=== PATIENT | female | born 1990 | race Caucasian/White ===

== ENCOUNTER → 2019-10-01 | Outpatient (CLI) | payer OTHER, SELFPAY ==
[2019-10-01 17:53] LABS: Vitamin D,25 Hydroxy 15.4 ng/mL
== END | disposition home or self-care (01) ==
PROVIDERS: Referring Provider Obstetrics & Gynecology; Visit Provider Obstetrics & Gynecology
DX: E55.9 Vitamin D deficiency, unspecified (principal)
CPT/HCPCS: 82306

== ENCOUNTER → 2019-10-15 10:27 | Outpatient (CLI) | payer OTHER, SELFPAY ==
[2014-08-24 18:11] VITALS: BMI 41.0
[2019-10-15 10:42] LABS: Hematocrit 39.1 % (37-47); Hemoglobin 12.7 g/dL (12.0-15.0); Mean Corp Hgb Conc 32.5 g/dL (32-36); Mean Corpuscular Volume 92.4 fL (81-99); Mean Platelet Vol. 11.3 fl (6.2-12.0); Platelet Count 274 K/mm3 (150-450); RBC Distribution Width CV 12.3 % (11.6-14.6); Red Blood Count 4.23 M/mm3 (4.2-5.4); White Blood Count 6.6 K/mm3 (4.4-11.0)
[2019-10-15 10:58] LABS: Anion Gap 6 (5-15); BUN 7 mg/dL (7-18); BUN/Creat Ratio 8.2 RATIO (10-20); Calcium,Total 8.7 mg/dL (8.5-10.1); Chloride 111 mmol/L (98-107); Creatinine, Serum 0.85 mg/dL (0.55-1.02); EST Glomerular Filtration Rate 84 mL/min (>60); Est Glom Filt Rate - Afr Amer 101 mL/min (>60); Glucose 97 mg/dL (74-106); Potassium 3.6 mmol/L (3.5-5.1); Sodium Level 142 mmol/L (136-145)
== END ==
PROVIDERS: Visit Provider Obstetrics & Gynecology
DX: N92.0 Excessive and frequent menstruation with regular cycle (principal)
CPT/HCPCS: 36415; 80048; 85027; 86850; 86900; 86901

== ENCOUNTER 2019-10-15 11:10 | Emergency (ER) | payer OTHER, SELFPAY ==
[2019-10-15 11:13] VITALS: BP 146/82; PULSE 99; RESP 17; TEMP 36.1; O2SAT 100; BMI 39.5
--- NOTE | 2019-10-15 11:31 | EKG12_ITS ---
Test Reason : VAGINAL BLEED Blood Pressure : / mmHG Vent. Rate : 085 BPM Atrial Rate : 085 BPM P-R Int : 178 ms QRS Dur : 088 ms QT Int : 372 ms P-R-T Axes : 040 041 022 degrees QTc Int : 442 ms Normal sinus rhythm Normal ECG Confirmed by MANINDER MONSALVE, EMILY ([id number]), production editor NILA MANUEL ([id number]) on 10/17/2019 11:10:51 AM Referred By: NIMISHA Confirmed By:EMILY DICKENS MD
--- NOTE | 2019-10-15 11:36 | ED.VIS.GEN ---
History of Present Illness Chief Complaint: Vag Bleeding Informant: Patient Onset: Weeks Context: Gradual Onset Narrative: Patient presents from Dr. Ana Mack office. She had an IUD removed nearly 2 weeks ago. The day after her procedure she started heavy vaginal bleeding. Dr. Ana Mack started her on Aygestin yesterday to help control her bleeding. She was seen in the office today secondary to generalized weakness, fatigue, intermittent shortness of breath. CBC and chemistry studies were unremarkable and the patient was sent to the ER for further evaluation. Patient does report some chest pain last night but states she thinks it was associated with a panic attack. She does get intermittently short of breath and states her breathing is easier when she lays down flat. She denies pain currently. She reports her appetite has been normal. Past Medical History - Allergies and Home Meds Allergies/Adverse Reactions: Allergies IMMODIUM Allergy (Severe, Uncoded 10/15/19 11:12) Anaphylaxis Primary Care Physician: Zachary Bal MD [Primary Care Provider] - Doctors: Dr. Ana Mack Lives: With Family Smoking Status: Former smoker Review of Systems General: Denies: Chills, Fever Eyes: Denies: Visual changes - bilaterally ENT: Denies: Bilateral ear pain Cardiovascular: Reports: Chest pain Respiratory: Reports: Dyspnea Gastrointestinal: Denies: Abdominal pain, Nausea, Vomiting, Diarrhea Genitourinary: Denies: Dysuria Musculoskeletal: Denies: Swelling, Extremity Pain Skin: Denies: Rash Neurological: Reports: Weakness Hematologic: Denies: Easy bruising, Easy bleeding Allergy: Denies: Uticaria Physical Exam Vital Signs/Narrative: Vital Signs Temp Pulse Resp BP Pulse Ox 10/15/19 11:13 96.9 F L 99 17 146/82 H 100 Inital Vital Signs reviewed: Yes General: Well nourished, Well developed Head: Normocephalic ENT: Moist mucous membranes Neck: Supple Cardiovascular: Regular rate, Regular rhythm Respiratory: No distress, CTA bilaterally Abdomen: Soft, Nontender Extremities: Nontender Skin: Normal color Neurological: Alert, Oriented x3 Psychological: Normal affect Diagnostic/Tx/Re-eval Impressions Chest X-Ray 10/15/19 12:05 IMPRESSION: Normal x-ray examination of the chest. Electronically Signed: Michael Sparks, at 12:25 EDT , Service support , Chest CTA 10/15/19 13:10 IMPRESSION: 6.7 mm noncalcified nodule in the right lung apex as well as a 5.9 mm noncalcified nodule in the medial aspect of the right upper lobe. Mildly enlarged right hilar lymph node. CT follow-up in 3 months is recommended. No evidence of the pulmonary embolism. Electronically Signed: Michael Sparks, at 13:54 EDT , Service support , 10/15/19 12:05 Chest 1 View (Portable) [RAD] Stat 10/15/19 13:10 CTA Chest W/WO Contrast [CT] Stat Laboratory Results 10/15/19 10/15/19 10/15/19 11:50 11:50 11:50 D-Dimer Quant (PE/DVT) 0.62 H* Troponin I < 0.015 TSH 0.88 Urine Color Yellow Urine Clarity Sl. Cloudy Urine pH 8.0 Ur Specific [place] 1.010 Urine Protein Negative Urine Glucose (UA) Normal Urine Ketones Negative Urine Occult Blood 25 H Urine Nitrite Negative Urine Bilirubin Negative Urine Urobilinogen Normal Ur Leukocyte Esterase Negative Urine RBC 0-5 SEEN Urine WBC 0 SEEN Ur Squamous Epith Cells 0 SEEN Urine Bacteria 0 SEEN Urine Mucus 0 SEEN - EKG Initial EKG Interpretation: Sinus Rhythm - Sinus 85 with no acute ischemia. - Medical Decision Making Patient was given IV fluids here. CBC and chemistry studies have been obtained at her [employer]MENT [employer]'s office. Troponin, d-dimer, TSH and urinalysis were added here. Due to elevation in d-dimer CTA of the chest was obtained. This reveals no evidence of PE but does reveal 2 lung nodules that will need follow-up. This was discussed with patient and family at bedside. ED Disposition - Plan for ED Patient: Disposition: Home or Assisted Living Diagnosis: Fatigue Instructions: ED Weakness [facility] Referrals: Zachary Bal MD [Primary Care Provider] - Chel Dias MD [STAFF PHYSICIAN] -
[2019-10-15 11:51] VITALS: BP 125/85; PULSE 87; RESP 16
[2019-10-15] MEDS: 0.9% Normal Saline 1,000 ML 1000 ML IV (11:55)
--- NOTE | 2019-10-15 12:05 | RAD_ITS ---
STUDY: X-RAY CHEST REASON FOR EXAM: Female, 29 years old. SENT UP BY DR. CANO -- IUD REMOVED 10 DAYS AGO. PT REPORTS CONTINUED BLEEDING, SOB X2 DAYS, INCREASED FATIGUE AND SLOW TO RESPOND TECHNIQUE: Single AP portable view of the chest. COMPARISON: None. FINDINGS: EKG electrodes are seen. The lungs are clear and expanded. There is no demonstrated pleural abnormality. Normal size heart. Normal mediastinum and ramon. Normal visualized pulmonary arteries. Normal visualized aortic arch and descending thoracic aorta. Normal visualized thoracic spine. Normal visualized ribs, clavicles, and shoulders. There is no demonstrated abnormality of the visualized soft tissue structures of the upper abdomen. RAD/Chest 1 View (Portable) IMPRESSION: Normal x-ray examination of the chest. Electronically Signed: Michael Sparks, at 12:25 EDT , Service support ,
[2019-10-15 12:07] LABS: Bacteria 0 SEEN /hpf (None Seen); Mucous, Urine 0 SEEN /hpf (<or=2+); Squamous Epithelial Cells - UA 0 SEEN /hpf (5-10); White Blood Cells 0 SEEN /hpf (0-5)
[2019-10-15 12:10] LABS: Color, Urine Yellow (Yellow); Glucose, Dipstick Normal (Normal); Ketone-Dipstick Negative (Negative); Leukocyte Esterase-Dipstick Negative /ul (Negative); Nitrite-Dipstick Negative (Negative); Occult Blood-Urine 25 /ul (Negative); Protein-Dipstick Negative (Negative); Urine Bilirubin Dipstick Negative (Negative); Urine Clarity Sl. Cloudy (Clear); Urine Urobilinogen Normal (Normal)
[2019-10-15 12:23] LABS: Red Blood Cells-Urine 0-5 SEEN /hpf (0-5)
[2019-10-15 12:32] LABS: Thyroid Stim Hormone (TSH) 0.88 uIU/mL (0.358-3.74)
[2019-10-15 12:40] LABS: D-Dimer Quantitative (DVT/PE) 0.62 FEU/ug/m (0.27-0.49)
--- NOTE | 2019-10-15 13:10 | CT_ITS ---
STUDY: CTA CHEST REASON FOR EXAM: Female, 29 years old. IUD REMOVED 10 DAYS AGO, SHORTNESS OF BREATH, FATIGUE RADIATION DOSAGE (If Supplied By Facility): CTDIvol = ( 15.04 ) mGy, DLP = ( 496.32 ) mGycm TECHNIQUE: The examination was performed with the intravenous administration of IV 100mL Isovue-370. Post-processing of the angiographic images was performed, with multiplanar reformation and 3D reconstruction. Individualized dose optimization techniques were used for this CT. COMPARISON: Comparison is made with prior chest radiograph done earlier today. FINDINGS: Normal enhancement of the main pulmonary artery and right and left pulmonary arteries. Normal enhancement of the bilateral peripheral pulmonary arteries. There is no demonstrated pulmonary embolism. Normal thoracic aorta and visualized great vessels. There is no demonstrated aortic dissection. Normal heart and pericardium. Normal mediastinum. Mildly enlarged right hilar lymph node. Normal visualized trachea and bronchi. The lungs are well expanded. There is a 6.7 mm noncalcified nodule in the right lung apex. I suspect a second nodule measuring 5.9 mm in the medial aspect of the right upper lobe. Normal pleura. Normal chest wall structures. Normal osseous structures. Findings suggestive of a 1 cm adenoma of the left adrenal gland. CT/CTA Chest W/WO Contrast IMPRESSION: 6.7 mm noncalcified nodule in the right lung apex as well as a 5.9 mm noncalcified nodule in the medial aspect of the right upper lobe. Mildly enlarged right hilar lymph node. CT follow-up in 3 months is recommended. No evidence of the pulmonary embolism. Electronically Signed: Michael Sparks, at 13:54 EDT , Service support ,
[2019-10-15 14:19] VITALS: BP 132/76; PULSE 79; RESP 16
== END 2019-10-15 14:20 | disposition home or self-care (01) ==
PROVIDERS: Emergency Provider Emergency Medicine; PCP Family Medicine
DX: R53.83 Other fatigue (principal); R91.8 Other nonspecific abnormal finding of lung field; R79.89 Other specified abnormal findings of blood chemistry; R53.1 Weakness; R06.00 Dyspnea, unspecified; Z87.891 Personal history of nicotine dependence
CPT/HCPCS: 71045; 71275; 81001; 84443; 84484; 85379; 93005; 96360; 96361; 99285; J7030; Q9967; A4216

== ENCOUNTER → 2020-01-02 12:57 | Outpatient (CLI) | payer OTHER, SELFPAY ==
--- NOTE | 2020-01-02 12:58 | CT_ITS ---
STUDY: CT CHEST WITH CONTRAST REASON FOR EXAM: Female, 29 years old. Lung nodule follow up. No chest pain, SOB, diabetes or hypertension. RADIATION DOSAGE (If Supplied By Facility): CTDIvol = ( 18.37 ) mGy, DLP = ( 787.95 ) mGycm TECHNIQUE: Transaxial imaging was performed following intravenous administration of IV 100mL Isovue-300. Multiplanar coronal and sagittal images were reformatted. Individualized dose optimization techniques were used for this CT. COMPARISON: Comparison is made with prior study 10/15/2019. FINDINGS: Small benign-appearing bilateral axillary lymph nodes. Stable 7 mm nodule in the right lung apex. A similar appearance nodule measuring 5.9 mm is seen along the medial aspect of the right upper lobe. There is no demonstrated pleural abnormality. Normal heart and pericardium. Normal mediastinum. Normal hilar regions. Normal enhanced pulmonary arteries. Normal aorta arch and descending thoracic aorta. Normal osseous structures. There is no demonstrated abnormality of the visualized upper abdomen. CT/Chest WITH Contrast IMPRESSION: Stable nodular appearance in the right upper lobe. Correlation with a PET scan is recommended. Electronically Signed: Michael Sparks, at 13:32 EDT , Service support ,
== END ==
PROVIDERS: PCP Family Medicine; Referring Provider Family Medicine; Visit Provider Family Medicine
DX: R91.1 Solitary pulmonary nodule (principal)
CPT/HCPCS: 71260

== ENCOUNTER → 2020-09-08 13:11 | Outpatient (CLI) | payer BC, SELFPAY ==
[2020-09-08 15:50] LABS: hCG Titer Quant., Serum 5274 mIU/mL (1-3)
== END ==
PROVIDERS: PCP Family Medicine; Visit Provider Obstetrics & Gynecology
DX: O20.0 Threatened abortion (principal); Z3A.00 Weeks of gestation of pregnancy not specified
CPT/HCPCS: 36415; 84702

== ENCOUNTER → 2020-09-09 15:46 | Outpatient (CLI) | payer BC, SELFPAY ==
[2020-09-09 15:48] LABS: Mucous, Urine 0 SEEN /hpf (<or=2+); Red Blood Cells-Urine 0 SEEN /hpf (0-5); White Blood Cells 0 SEEN /hpf (0-5)
[2020-09-09 17:12] LABS: Color, Urine Yellow (Yellow); Glucose, Dipstick Normal (Normal); Ketone-Dipstick Negative (Negative); Leukocyte Esterase-Dipstick 500 /ul (Negative); Nitrite-Dipstick Negative (Negative); Occult Blood-Urine Negative /ul (Negative); Protein-Dipstick Negative (Negative); Specific Gravity, Urine 1.015 (1.002-1.030); Urine Bilirubin Dipstick Negative (Negative); Urine Clarity Clear (Clear); Urine Urobilinogen Normal (Normal); Urine pH 6.5 (5.0 - 8.0)
[2020-09-09 17:20] LABS: Bacteria RARE /hpf (None Seen); Squamous Epithelial Cells - UA 0-5 SEEN /hpf (5-10)
== END ==
PROVIDERS: PCP Family Medicine; Visit Provider Obstetrics & Gynecology
DX: Z34.81 Encounter for supervision of other normal pregnancy, first trimester (principal); R30.0 Dysuria
CPT/HCPCS: 81001; 87086; 87088

== ENCOUNTER → 2020-09-10 08:36 | Outpatient (CLI) | payer BC, SELFPAY ==
[2020-09-10 10:31] LABS: hCG Titer Quant., Serum 7817 mIU/mL (1-3)
== END ==
PROVIDERS: PCP Family Medicine; Visit Provider Obstetrics & Gynecology
DX: O20.0 Threatened abortion (principal); Z3A.00 Weeks of gestation of pregnancy not specified
CPT/HCPCS: 36415; 84702

== ENCOUNTER → 2020-09-15 15:59 | Outpatient (CLI) | payer BC, SELFPAY ==
[2020-09-15 17:18] LABS: Color, Urine Yellow (Yellow); Glucose, Dipstick Normal (Normal); Ketone-Dipstick Negative (Negative); Leukocyte Esterase-Dipstick 500 /ul (Negative); Nitrite-Dipstick Negative (Negative); Occult Blood-Urine 25 /ul (Negative); Protein-Dipstick Negative (Negative); Urine Bilirubin Dipstick Negative (Negative); Urine Clarity Sl. Cloudy (Clear); Urine Urobilinogen Normal (Normal)
[2020-09-15 17:36] LABS: Absolute Neutrophil Count 6.2 X10^3/uL (2.0-7.7); Basophil# 0.04 X10^3/uL; Basophil% 0.5 % (0-1); Eosinophil# 0.25 X10^3/uL; Eosinophils% 2.9 % (0-5); Hematocrit 36.8 % (37-47); Hemoglobin 12.2 g/dL (12.0-15.0); Lymphocyte % 19.6 % (19-41); Mean Corp Hgb Conc 33.2 g/dL (32-36); Mean Corpuscular Hgb 29.7 pg (27.0-32.0); Mean Corpuscular Volume 89.5 fL (81-99); Monocyte# 0.45 X10^3/uL; Monocyte% 5.2 % (0-10); NRBC Flagged by Analyzer 0 % (0-5); Neutrophil # 6.18 X10^3/uL (2.7-7.7); Neutrophil % 71.3 % (47-70); Platelet Count 267 K/mm3 (150-450); RBC Distribution Width SD 38.8 fl (35.1-43.9); Red Blood Count 4.11 M/mm3 (4.2-5.4); White Blood Count 8.7 K/mm3 (4.4-11.0)
[2020-09-15 17:37] LABS: Thyroid Stim Hormone (TSH) 1.05 uIU/mL (0.358-3.74)
[2020-09-15 18:12] LABS: Amphetamine Urine VISTA NEGATIVE (<1000 ng/mL); Barbiturate Urine VISTA NEGATIVE (< 200 ng/mL); Benzodiazepine Urine VISTA NEGATIVE (< 200 ng/mL); Cocaine Urine VISTA NEGATIVE (< 300 ng/mL); Ecstacy Urine VISTA POSITIVE (< 500 ng/mL); Methadone Urine VISTA NEGATIVE (< 300 ng/mL); PCP Urine VISTA NEGATIVE (< 25 ng/mL); THC Urine VISTA NEGATIVE (< 50 ng/mL); Vista UDS pH Range 6
[2020-09-16 10:40] LABS: HIV - WCH Non-Reactive (Nonreactive); Hepatitis B Surface Antigen Non-Reactive (Nonreactive); Hepatitis C Antibody Non-Reactive (Nonreactive); Rubella IgG Reactive (Nonreactive); Syphilis Antibodies Non-reactive
[2020-09-17 20:08] LABS: Chlamydia By Nucleic Acid AMP Negative (Negative)
[2020-09-18 09:13] LABS: Gonococcus By Nucleic Acid AMP Negative (Negative)
== END ==
PROVIDERS: PCP Family Medicine; Visit Provider Obstetrics & Gynecology
DX: Z34.81 Encounter for supervision of other normal pregnancy, first trimester (principal); Z11.3 Encounter for screening for infections with a predominantly sexual mode of transmission
CPT/HCPCS: 36415; 80307; 81002; 84443; 85025; 86703; 86762; 86780; 86803; 87340; 87491; 87591

== ENCOUNTER 2020-09-29 19:28 | Emergency (ER) | payer BC, SELFPAY ==
[2020-09-29 19:29] VITALS: BP 136/86; PULSE 100; RESP 18; TEMP 36.7; O2SAT 99; BMI 40.3
[2020-09-29] MEDS: Acetaminophen 500 MG Tablet 1000 MG PO (20:04)
[2020-09-29] MEDS: Lidocaine 1% (20 ml mdv) 20 ML Vial INFILT (20:04)
--- NOTE | 2020-09-29 20:36 | EDS_ITS ---
HPI History of Present Illness Chief Complaint: Laceration Informant: patient and spouse/S.O. Occured/Mechanism Comment: Cut right hand with kitchen knife Onset/Context/Timing Onset: Today Current Severity: Moderate Maximum Severity: Moderate Narrative Narrative: Patient presents with a laceration to the webspace between the thumb and index finger of her right hand. She states she was using a new knife in the kitchen when she cut herself. Tetanus is up-to-date. Significant history positive for currently at 10 weeks. [facility] Medical History Anxiety Lung nodule Home Medications vit,[id number] 1 tab PO DAILY 08/24/14 [History Last Taken 08/23/14] Cholecalciferol (Vitamin D3) [Vitamin D3] 5,000 unit PO DAILY 10/15/19 [History Last Taken Unknown] bupropion HCl 300 mg 24 hr tablet, extended release 300 mg PO QAM 01/21/20 [History Last Taken Unknown] Allergy/AdvReac Type Severity Reaction Status Date / Time IMMODIUM Allergy Severe Anaphylaxis Uncoded 01/23/20 10:24 Family History Father Diabetes TBI (traumatic brain injury) Mother Diabetes Hypothyroid Surgical History No pertinent past surgical history Social History Smoking Status: Current every day smoker tobacco type: cigarettes Tobacco: How many years used: 11 alcohol intake: current alcohol intake frequency: a few times a week ROS ROS ED Constitutional Constitutional ED: Denies chills or fever(s) Eyes Eyes: Denies change in vision ENT ENT ED: Denies sore throat Cardiovascular Cardiovascular: Denies chest pain Respiratory/Chest Respiratory/Chest: Denies cough or dyspnea Gastrointestinal Gastrointestinal: Denies abdominal pain, diarrhea, nausea or vomiting Genitourinary Genitourinary ED: Denies dysuria Musculoskeletal Musculoskeletal: Reports other Details: Right hand pain ; Denies back pain Integumentary Denies rash Neurologic Neurologic: Denies headache(s), paresthesias or weakness Psychiatric Psychiatric: Denies anxiety or depression Endocrine Endocrinology: Denies polydipsia or polyuria Allergic/Immunologic Allergic/Immunologic ED: Denies urticaria EXAM Physical Exam Const Vital Signs: 09/29/20 19:29 Temperature 98.1 F Temperature Source Temporal Pulse Rate 100 Respiratory Rate 18 Blood Pressure 136/86 H Blood Pressure Mean 102 Pulse Ox 99 Oxygen Delivery Method Room Air Positive well nourished and well developed General Appearance ED: well developed HEENT normocephalic Eyes PERRL Chest Wall inspection of chest normal and palpation of chest normal Resp normal respiratory effort and clear to auscultation bilaterally Cardio regular rate and regular rhythm GI non-tender Palpation: soft Extremity Extremity Narrative: 3 cm laceration across the webspace between the right thumb and index finger. Full range of motion of all digits without difficulty. Normal sensation and cap refill. Neuro oriented x3, no focal motor deficits and no sensory deficits noted Sensorium / Orientation: alert Motor Exam: strength 5/5 throughout Skin Skin Narrative: Hand laceration as above MDM MDM MDM Narrative Medical decision making narrative: Patient was given Tylenol for pain secondary to her status. Treatment and Re-Evaluation Comments:: Right hand laceration was anesthetized with 6 cc 1% lidocaine. Wound was cleansed and irrigated. 8 simple interrupted sutures of 5-0 nylon were placed. Dressing is applied. Patient instructed to have sutures removed in 10 days. Procedures Lacerations 3 cm right hand laceration: Length: 1.18 in Depth: Sub Q Shape: Linear Prep: Stephanie Laceration repair: Irrigated and Local Number of Sutures/Lovely: 8 Suture Information: Ethilon, Simple and 5-0 Discharge Plan Triage Chief Complaint: Laceration ED Provider: Lynn La Dx/Rx/DC Orders Clinical Impression: Hand laceration Instructions: ED Laceration, Hand: All Closures Prescriptions: No Action bupropion HCl [Wellbutrin XL] 300 mg tablet extended release 24 hr 300 mg PO QAM RF: 0 vit,[id number] 1 TABLET tablet 1 tab PO DAILY RF: 0 Cholecalciferol (Vitamin D3) [Vitamin D3] 5,000 UNIT capsule 5,000 unit PO DAILY RF: 0 Primary Care Provider: Zachary Bal Referrals: Zachary Bal MD [Primary Care Provider] - 10 Day for suture removal Disposition Disposition: Home, self care Discharge Date/Time: 09/29/20 20:44
[2020-09-29 20:43] VITALS: BP 132/60; PULSE 95; RESP 18
== END 2020-09-29 20:44 | disposition home or self-care (01) ==
PROVIDERS: Emergency Provider Emergency Medicine; PCP Family Medicine
DX: O9A.211 Injury, poisoning and certain other consequences of external causes complicating pregnancy, first trimester (principal); S61.411A Laceration without foreign body of right hand, initial encounter; Z3A.10 10 weeks gestation of pregnancy; W26.0XXA Contact with knife, initial encounter; Y93.9 Activity, unspecified; Y92.9 Unspecified place or not applicable; O99.341 Other mental disorders complicating pregnancy, first trimester; F41.9 Anxiety disorder, unspecified; O99.331 Smoking (tobacco) complicating pregnancy, first trimester; F17.210 Nicotine dependence, cigarettes, uncomplicated; Z79.899 Other long term (current) drug therapy
CPT/HCPCS: 12002; 99284

== ENCOUNTER → 2020-11-10 14:07 | Outpatient (CLI) | payer BC, SELFPAY ==
[2020-11-10 15:25] LABS: Glucose Challenge Gest 1H 50g 116 mg/dL (70-140)
== END ==
PROVIDERS: PCP Family Medicine; Visit Provider Obstetrics & Gynecology
DX: Z34.82 Encounter for supervision of other normal pregnancy, second trimester (principal)
CPT/HCPCS: 36415; 82950

== ENCOUNTER → 2021-02-11 14:55 | Outpatient (CLI) | payer BC, SELFPAY ==
[2021-02-11 16:14] LABS: Hematocrit 33.6 % (37-47); Hemoglobin 11.1 g/dL (12.0-15.0); Mean Corpuscular Hgb 29.5 pg (27.0-32.0); Mean Corpuscular Volume 89.4 fL (81-99); Mean Platelet Vol. 11.7 fl (6.2-12.0); Platelet Count 278 K/mm3 (150-450); RBC Distribution Width CV 12.6 % (11.6-14.6); RBC Distribution Width SD 41.1 fl (35.1-43.9); Red Blood Count 3.76 M/mm3 (4.2-5.4); White Blood Count 8.8 K/mm3 (4.4-11.0)
[2021-02-11 16:22] LABS: Glucose Challenge Gest 1H 50g 125 mg/dL (70-140)
== END ==
PROVIDERS: PCP Family Medicine; Visit Provider Obstetrics & Gynecology
DX: Z34.81 Encounter for supervision of other normal pregnancy, first trimester (principal)
CPT/HCPCS: 36415; 82950; 85027

== ENCOUNTER 2021-02-12 12:20 | Outpatient (CLI) | payer BC, SELFPAY ==
[2021-02-12 12:27] VITALS: BMI 39.6
[2021-02-12 12:36] VITALS: BP 140/85; PULSE 82
[2021-02-12 12:38] VITALS: PULSE 82; TEMP 35.6
[2021-02-12 12:52] VITALS: BP 131/81; PULSE 85
[2021-02-12 14:43] LABS: ALB/GLOB Ratio 0.7 RATIO (0.9-2.4); AST(SGOT) 9 U/L (15-37); Alanine Aminotransfer ALT/SGPT 12 U/L (13-56); Alkaline Phosphatase 121 U/L (45-117); Anion Gap 6 (5-15); BUN 6 mg/dL (7-18); BUN/Creat Ratio 9.2 RATIO (10-20); Calcium,Total 9.2 mg/dL (8.5-10.1); Chloride 105 mmol/L (98-107); Creatinine, Serum 0.65 mg/dL (0.55-1.02); EST Glomerular Filtration Rate 113 mL/min (>60); Est Glom Filt Rate - Afr Amer 136 mL/min (>60); Estimated Creatinine Clearance 127.66 ml/min; Globulin 4.6 g/dL (2.2-4.2); Glucose 93 mg/dL (74-106); Potassium 3.4 mmol/L (3.5-5.1); Protein, Total 7.6 g/dL (6.4-8.2); Sodium Level 137 mmol/L (136-145)
[2021-02-12 15:02] LABS: Creatinine, Urine (random) < 13.00 mg/dL (NO RANGE EST.); Protein, Urine (Random) < 6.0 mg/dL (<11.9)
--- NOTE | 2021-02-12 21:53 | OB.TRI.NOTE ---
HPI - General HPI Narrative LUZ MARINA SCHMIDT, is a 30 F who presents following emesis x 1 and syncopal episode immediately after receiving her COVID19 vaccination. PFSH PFSH Medical History (Updated 04/06/21 @ 07:[address] Chel Mack MD) Anxiety Lung nodule Home Medications vit,[id number] 1 tab PO DAILY 08/24/14 [History Last Taken 08/23/14] Cholecalciferol (Vitamin D3) [Vitamin D3] 5,000 unit PO DAILY 10/15/19 [History Last Taken Unknown] bupropion HCl 300 mg 24 hr tablet, extended release 300 mg PO QAM 01/21/20 [History Last Taken Unknown] sertraline [Zoloft] 25 mg PO DAILY 02/12/21 [History Last Taken Unknown] Allergy/AdvReac Type Severity Reaction Status Date / Time IMMODIUM Allergy Severe Anaphylaxis Uncoded 02/12/21 12:31 Family History Father Diabetes TBI (traumatic brain injury) Mother Diabetes Hypothyroid Surgical History No pertinent past surgical history Social History Smoking Status: Current every day smoker tobacco type: cigarettes Tobacco: How many years used: 11 alcohol intake: current alcohol intake frequency: a few times a week History Elective abortions Hx Para 0 Spontaneous abortions Hx # Term Pregnancies Ectopic pregnancies Hx # Pregnancies Multiple births # of living children NST FHR Rate Baby A Baseline: 125 Variability:: Moderate Accelerations:: None Decelerations:: None NST Reactive:: Yes FHR Category:: Category I Uterine Activity:: 0/10 Assessment & Plan (1) : QUALIFIERS: Weeks of gestation: 28 weeks Qualified Code(s): Z3A.28 - 28 weeks gestation of (2) Fall: QUALIFIERS: Encounter type: initial encounter Qualified Code(s): W19.XXXA - Unspecified fall, initial encounter PLAN: Reactive NST No contractions or PTL d/c home
== END 2021-02-12 15:35 | disposition home or self-care (01) ==
LOC: WPOUT 12:24 → WP 12:25
PROVIDERS: PCP Family Medicine; Visit Provider Obstetrics & Gynecology
DX: O26.893 Other specified pregnancy related conditions, third trimester (principal); R11.10 Vomiting, unspecified; R55 Syncope and collapse; W19.XXXA Unspecified fall, initial encounter; Y93.9 Activity, unspecified; Y92.9 Unspecified place or not applicable; O99.333 Smoking (tobacco) complicating pregnancy, third trimester; F17.210 Nicotine dependence, cigarettes, uncomplicated; O99.343 Other mental disorders complicating pregnancy, third trimester; F41.9 Anxiety disorder, unspecified; Z3A.28 28 weeks gestation of pregnancy; Z79.899 Other long term (current) drug therapy
CPT/HCPCS: 36415; 59025; 59050; 80053; 82570; 84156; 99218; G0378

== ENCOUNTER → 2021-02-15 08:48 | Outpatient (CLI) | payer BC, SELFPAY ==
--- NOTE | 2021-02-15 08:55 | ECHOD_ITS ---
Reason For Study: SOB Procedure This was a 2D Doppler, Color Flow transthoracic echocardiogram. Exam performed in department. Left Ventricle Normal LV size. Left ventricular systolic function is normal. The estimated ejection fraction is 60 %. No regional wall motion abnormalities noted. Right Ventricle Normal RV size. Normal systolic function. Atria Normal left atrium. Normal right atrium. Mitral Valve Normal mitral valve. Tricuspid Valve Normal tricuspid valve. Aortic Valve Normal aortic valve. Trisinus/trileaflet aortic valve. Pulmonic Valve The pulmonic valve is not well visualized. Great Vessels Normal aortic root. The pulmonary artery is normal size. Normal inferior vena cava. Pericardium/Pleural No pericardial effusion. MMode/2D Measurements & Calculations LVIDd: 4.2 cm IVSd: 1.1 cm LA dimension: 3.4 cm LVIDs: 2.7 cm LVPWd: 1.1 cm RVDd: 3.5 cm FS: 34.5 % LAV(MOD-bp): 47.4 ml LA A4 area: 18.6 cm2 RA A4 area: 12.0 cm2 LAV(MOD-bp) Indexed: 20.5 ml/m2 LAV(MOD-sp2): 40.6 ml LAV(MOD-sp4): 47.6 ml Time Measurements MV dec time: 0.20 sec Doppler Measurements & Calculations MV E max antonio: 97.0 cm/sec Lat Peak E' Antonio: 18.3 cm/sec Med Peak E' Antonio: 9.8 cm/sec MV A max antonio: 78.0 cm/sec E/E' lat: 5.3 E/E' med: 9.9 MV E/A: 1.2 MV V2 max: 93.8 cm/sec MV P1/2t max antonio: 94.4 cm/sec Ao V2 max: 145.5 cm/sec MV max P.5 mmHg MV P1/2t: 57.0 msec Ao max P.5 mmHg MV V2 mean: 61.3 cm/sec MV dec slope: 485.3 cm/sec2 MV mean P.7 mmHg MVA(P1/2t): 3.9 cm2 MV V2 VTI: 19.3 cm LV V1 max: 132.4 cm/sec PA V2 max: 113.6 cm/sec LV V1 max P.0 mmHg ECHO/Echo Complete Interpretation Summary Normal LV size. Left ventricular systolic function is normal. The estimated ejection fraction is 60 %. Structurally normal valves. Ordering Physician: Chel Dias Referring Physician: Zachary Bal Performed By: Jeff Huynh RCS
== END ==
PROVIDERS: PCP Family Medicine; Referring Provider Obstetrics & Gynecology; Visit Provider Obstetrics & Gynecology
DX: Z34.83 Encounter for supervision of other normal pregnancy, third trimester (principal); R06.02 Shortness of breath
CPT/HCPCS: 93306

== ENCOUNTER → 2021-03-22 16:50 | Outpatient (CLI) | payer BC, SELFPAY ==
[2021-03-22 17:46] LABS: Hematocrit 32.7 % (37-47); Mean Corp Hgb Conc 33.6 g/dL (32-36); Mean Corpuscular Hgb 29.1 pg (27.0-32.0); Mean Corpuscular Volume 86.5 fL (81-99); Mean Platelet Vol. 11.6 fl (6.2-12.0); Platelet Count 255 K/mm3 (150-450); RBC Distribution Width CV 13.2 % (11.6-14.6); RBC Distribution Width SD 41.3 fl (35.1-43.9); Red Blood Count 3.78 M/mm3 (4.2-5.4); White Blood Count 8.7 K/mm3 (4.4-11.0)
[2021-03-22 18:02] LABS: ALB/GLOB Ratio 0.6 RATIO (0.9-2.4); AST(SGOT) 7 U/L (15-37); Alanine Aminotransfer ALT/SGPT 15 U/L (13-56); Albumin, Serum 2.8 g/dL (3.2-5.0); Alkaline Phosphatase 139 U/L (45-117); Anion Gap 9 (5-15); BUN 7 mg/dL (7-18); BUN/Creat Ratio 11.3 RATIO (10-20); Calcium,Total 9.1 mg/dL (8.5-10.1); Chloride 105 mmol/L (98-107); Creatinine, Serum 0.62 mg/dL (0.55-1.02); EST Glomerular Filtration Rate 120 mL/min (>60); Est Glom Filt Rate - Afr Amer 145 mL/min (>60); Globulin 4.5 g/dL (2.2-4.2); Glucose 92 mg/dL (74-106); LDH 128 U/L (84-246); Potassium 3.5 mmol/L (3.5-5.1); Protein, Total 7.3 g/dL (6.4-8.2); Sodium Level 136 mmol/L (136-145); Uric Acid 4.2 mg/dL (2.6-6.0)
[2021-03-22 18:33] LABS: Protein, Urine (Random) 13.1 mg/dL (<11.9); Protein:Creat Ratio 138 mg/g CRE (0-200)
== END ==
PROVIDERS: PCP Family Medicine; Visit Provider Obstetrics & Gynecology
DX: O13.3 Gestational [pregnancy-induced] hypertension without significant proteinuria, third trimester (principal); Z3A.00 Weeks of gestation of pregnancy not specified
CPT/HCPCS: 36415; 80053; 82570; 83615; 84156; 84550; 85027

== ENCOUNTER → 2021-03-25 | Outpatient (CLI) | payer BC, SELFPAY ==
[2021-03-24 09:34] LABS: Creat.Clear Total Volume 3700 mL; Creatinine Clearance 283 ml/min (100-200); Creatinine Serum Creat 0.6 mg/dL (0.6-1.0); Creatinine Urine 68.3 mg/dL (NO RANGE EST.); EST Glomerular Filtration Rate 119 mL/min (>60); Est Glom Filt Rate - Afr Amer 145 mL/min (>60)
[2021-03-24 09:35] LABS: 24 Hour Urine Protein 477.3 mg/24HR (<150 MG/24HR); 24HR. UA Prot. Total Volume 3700 mL; Urine Protein (24 Hour) 12.9 mg/dL (<11.9)
== END | disposition home or self-care (01) ==
LOC: LABSPEC 07:11
PROVIDERS: Visit Provider Obstetrics & Gynecology
DX: O13.3 Gestational [pregnancy-induced] hypertension without significant proteinuria, third trimester (principal); Z3A.00 Weeks of gestation of pregnancy not specified
CPT/HCPCS: 81050; 82575; 84156

== ENCOUNTER → 2021-04-05 15:40 | Outpatient (CLI) | payer BC, SELFPAY ==
[2021-04-05 17:58] LABS: Hematocrit 34.4 % (37-47); Hemoglobin 11.4 g/dL (12.0-15.0); Mean Corp Hgb Conc 33.1 g/dL (32-36); Mean Corpuscular Volume 87.5 fL (81-99); Mean Platelet Vol. 11.8 fl (6.2-12.0); Platelet Count 254 K/mm3 (150-450); RBC Distribution Width CV 13.5 % (11.6-14.6); RBC Distribution Width SD 43.1 fl (35.1-43.9); Red Blood Count 3.93 M/mm3 (4.2-5.4); White Blood Count 7.7 K/mm3 (4.4-11.0)
[2021-04-05 18:02] LABS: ALB/GLOB Ratio 0.6 RATIO (0.9-2.4); AST(SGOT) 11 U/L (15-37); Alanine Aminotransfer ALT/SGPT 14 U/L (13-56); Albumin, Serum 2.8 g/dL (3.2-5.0); Alkaline Phosphatase 162 U/L (45-117); Anion Gap 8 (5-15); BUN 5 mg/dL (7-18); BUN/Creat Ratio 8.9 RATIO (10-20); Calcium,Total 9.3 mg/dL (8.5-10.1); Chloride 105 mmol/L (98-107); Creatinine, Serum 0.56 mg/dL (0.55-1.02); EST Glomerular Filtration Rate 134 mL/min (>60); Est Glom Filt Rate - Afr Amer 162 mL/min (>60); Globulin 4.6 g/dL (2.2-4.2); Glucose 74 mg/dL (74-106); LDH 179 U/L (84-246); Potassium 3.7 mmol/L (3.5-5.1); Protein, Total 7.4 g/dL (6.4-8.2); Sodium Level 139 mmol/L (136-145)
== END ==
PROVIDERS: Visit Provider Obstetrics & Gynecology
DX: O13.3 Gestational [pregnancy-induced] hypertension without significant proteinuria, third trimester (principal); Z3A.00 Weeks of gestation of pregnancy not specified
CPT/HCPCS: 36415; 80053; 83615; 84550; 85027

== ENCOUNTER → 2021-04-12 11:20 | Outpatient (CLI) | payer BC, SELFPAY ==
[2021-04-12 12:31] LABS: Hematocrit 34.7 % (37-47); Hemoglobin 11.9 g/dL (12.0-15.0); Mean Corp Hgb Conc 34.3 g/dL (32-36); Mean Corpuscular Hgb 29.9 pg (27.0-32.0); Mean Corpuscular Volume 87.2 fL (81-99); Mean Platelet Vol. 11.7 fl (6.2-12.0); Platelet Count 238 K/mm3 (150-450); RBC Distribution Width CV 13.5 % (11.6-14.6); RBC Distribution Width SD 42.7 fl (35.1-43.9); Red Blood Count 3.98 M/mm3 (4.2-5.4); White Blood Count 7.1 K/mm3 (4.4-11.0)
[2021-04-12 12:45] LABS: ALB/GLOB Ratio 0.6 RATIO (0.9-2.4); AST(SGOT) 12 U/L (15-37); Alanine Aminotransfer ALT/SGPT 17 U/L (13-56); Albumin, Serum 2.8 g/dL (3.2-5.0); Alkaline Phosphatase 167 U/L (45-117); Anion Gap 6 (5-15); BUN 6 mg/dL (7-18); BUN/Creat Ratio 10.2 RATIO (10-20); Chloride 105 mmol/L (98-107); Creatinine, Serum 0.59 mg/dL (0.55-1.02); EST Glomerular Filtration Rate 126 mL/min (>60); Est Glom Filt Rate - Afr Amer 153 mL/min (>60); Globulin 4.5 g/dL (2.2-4.2); Glucose 84 mg/dL (74-106); LDH 133 U/L (84-246); Potassium 3.8 mmol/L (3.5-5.1); Protein, Total 7.3 g/dL (6.4-8.2); Sodium Level 136 mmol/L (136-145); Uric Acid 4.6 mg/dL (2.6-6.0)
== END ==
PROVIDERS: Visit Provider Obstetrics & Gynecology
DX: O14.93 Unspecified pre-eclampsia, third trimester (principal); Z3A.00 Weeks of gestation of pregnancy not specified; Z36.85 Encounter for antenatal screening for Streptococcus B
CPT/HCPCS: 36415; 80053; 83615; 84550; 85027; 87081

== ENCOUNTER 2021-04-14 16:50 | Inpatient (IN) | payer BC, SELFPAY ==
[2021-04-14] VITALS (7 sets, daily range): BP systolic 120–143; BP diastolic 67–85; PULSE 83–93; TEMP 36.6; O2SAT 100; BMI 42.0
[2021-04-14] MEDS: Lactated Ringers 1,000 ML 50 ML IV (18:30)
[2021-04-14 18:47] LABS: Absolute Lymphocyte Count 1.65 X10^3/uL (0.83-4.51); Absolute Neutrophil Count 7.3 X10^3/uL (2.0-7.7); Basophil# 0.02 X10^3/uL; Basophil% 0.2 % (0-1); Eosinophil# 0.12 X10^3/uL; Eosinophils% 1.2 % (0-5); Hematocrit 36.3 % (37-47); Hemoglobin 12.3 g/dL (12.0-15.0); Lymphocyte # 1.65 X10^3/ul (0.83-4.51); Lymphocyte % 17.1 % (19-41); Mean Corp Hgb Conc 33.9 g/dL (32-36); Mean Corpuscular Hgb 29.2 pg (27.0-32.0); Mean Corpuscular Volume 86.2 fL (81-99); Mean Platelet Vol. 11.9 fl (6.2-12.0); Monocyte# 0.44 X10^3/uL; Monocyte% 4.6 % (0-10); NRBC Flagged by Analyzer 0 % (0-5); Neutrophil # 7.33 X10^3/uL (2.7-7.7); Neutrophil % 76.2 % (47-70); Platelet Count 231 K/mm3 (150-450); RBC Distribution Width CV 13.4 % (11.6-14.6); RBC Distribution Width SD 41.3 fl (35.1-43.9); Red Blood Count 4.21 M/mm3 (4.2-5.4); White Blood Count 9.6 K/mm3 (4.4-11.0)
[2021-04-14] MEDS: miSOPROStol 25 MCG TABLET VAGINAL ×2 (19:18→23:40)
[2021-04-14 19:38] LABS: ALB/GLOB Ratio 0.6 RATIO (0.9-2.4); AST(SGOT) 44 U/L (15-37); Alanine Aminotransfer ALT/SGPT 23 U/L (13-56); Alkaline Phosphatase 176 U/L (45-117); Anion Gap 8 (5-15); BUN 6 mg/dL (7-18); BUN/Creat Ratio 8.7 RATIO (10-20); Calcium,Total 10.2 mg/dL (8.5-10.1); Chloride 103 mmol/L (98-107); Creatinine, Serum 0.69 mg/dL (0.55-1.02); EST Glomerular Filtration Rate 106 mL/min (>60); Est Glom Filt Rate - Afr Amer 128 mL/min (>60); Estimated Creatinine Clearance 120.26 ml/min; Globulin 5.1 g/dL (2.2-4.2); Glucose 77 mg/dL (74-106); LDH 320 U/L (84-246); Potassium 4.2 mmol/L (3.5-5.1); Protein, Total 8.1 g/dL (6.4-8.2); Sodium Level 136 mmol/L (136-145)
[2021-04-14 21:17] LABS: Group B Strep DNA By PCR Negative (Negative); Internal Control PASS; Probe Check PASS; Specimen Processing Control PASS
[2021-04-14] MEDS: Mag Hydrox/Al Hydrox/Simeth 30 ML UDC PO (23:40)
--- NOTE | 2021-04-14 23:46 | HP.PCM.OB_ITS ---
History and Physical Date of Admission: 04/14/21 Chief complaint: Induction of labor preeclampsia without severe features History present illness: 30-year-old G2, P1 at 37 weeks and 0 days with AMY 05/05/2019 2 x 10-week ultrasound arrives for induction of labor for preeclampsia without severe features. Patient with some body aches, did have on and off headache earlier today that is now resolved no visual changes. Denies nausea vomiting, right upper quadrant pain, chest pain, shortness of breath. Patient states good movement. This is complicated by pre-ED without severe features, anxiety/depression, history of third-degree laceration Obstetric history: G1: 41-week vacuum-assisted vaginal delivery third-degree laceration 08/26/2014 G2: Current Past medical history: Anxiety/depression Medications: Wellbutrin, Zoloft, Zofran Past surgical history: None Allergies: Imodium Social history: Former smoker, denies alcohol or drug use Family history: Denies history DVT or PE Review of systems: Besides the above pertinent positives a full review of systems was performed and found to be negative Physical exam: Vitals: Blood pressure 120/82 pulse 86 General: Normal-appearing no acute distress HEENT: Normocephalic atraumatic no cervical of adenopathy Cardiac/respiratory: No use of accessory muscles, nonlabored breathing Abdomen: Soft, nontender, gravid Extremities: No peripheral edema normal peripheral pulses. Deep tendon reflexes +2 bilateral lower extremities. Negative clonus bilaterally Psych: Normal affect normal demeanor nonpressured speech Labs: White blood cell count 9.6 hemoglobin 12.3 hematocrit 36.3 platelets 231. Creatinine 0.69. Total bilirubin 0.4. AST 44 ALT 23. LDH 320. Previous 24- hour urine with greater than 300 mg of protein. GBS culture pending. GBS rapid test negative. Assessment and plan: 30-year-old G2, P1 at 37 weeks 0 days for induction of labor for preeclampsia w ithout severe features. Mildly elevated LFTs, not doubled the upper limit of normal. LDH less than 600. Overall now asymptomatic. We will continue to monitor signs and symptoms along with blood pressures and treat as needed. Admit labor and delivery CEFM Cytotec induction GBS culture pending. Patient with no risk factors, no history of GBS positive in previous . GBS rapid test negative. We will proceed forward with GBS negative, unless risk factors arise Routine orders Anesthesia to see
[2021-04-15] VITALS (37 sets, daily range): BP systolic 106–132; BP diastolic 58–86; PULSE 70–96; TEMP 36.1–36.9; O2SAT 82–100
[2021-04-15] MEDS: miSOPROStol 25 MCG TABLET VAGINAL (04:05)
[2021-04-15] MEDS: Lactated Ringers 1,000 ML 50 ML IV (07:20)
[2021-04-15] MEDS: 0.9% Normal Saline Single 100 ML IV.SOLN. INTRA-UTER (08:31)
--- NOTE | 2021-04-15 08:43 | NURSING ---
Called Dr. Marin concering her wellbutrin 300mg PO QD and zoloft 25mg PO QD medications that she is currently on. Orders received for both medications at this time for patient to take in the AM during her usual time.
[2021-04-15] MEDS: Oxytocin 30 units/NS 500 ml 30 UNITS/500 ML IV.SOLN IV (09:00)
[2021-04-15] MEDS: Sertraline 50 MG Tablet 25 MG PO (09:35)
[2021-04-15] MEDS: buPROPion (XL) 300 MG TABLET.XL PO (09:35)
--- NOTE | 2021-04-15 11:09 | PCM.PN.OB ---
Subjective Subjective Garcia catheter out. Cervix is 4 to 5 cm 85% effaced and -2 station. Artificial rupture of membranes with clear fluid noted. Internal heart tones and contraction monitor placed. Expect spontaneous vaginal delivery. Objective Data Objective Data Vital Signs: Vital Signs Temp Pulse BP Pulse Ox 98.1 F 89 110/81 H 99 04/15/21 09:56 04/15/21 09:56 04/15/21 09:56 04/15/21 07:32 Weight: 276 lb 14.409 oz Body Mass Index (BMI) 42.0 Intake & Output: Intake and Output for Last 24 Hours 04/13/21 04/14/21 04/15/21 23:59 23:59 23:59 Intake Total 1006.17 / 1006.17 Balance 1006.17 / 1006.17 Lab / Micro Data Result Diagrams: 04/14/21 18:30 04/14/21 18:30 Labs: Laboratory Results - last 24 hr 04/14/21 18:30: WBC 9.6, RBC 4.21, Hgb 12.3, Hct 36.3 L, MCV 86.2, MCH 29.2, MCHC 33.9, RDW Std Deviation 41.3, RDW Coeff of Teofilo 13.4, Plt Count 231, MPV 11.9, Immature Gran % (Auto) 0.700, Neut % (Auto) 76.2 H, Lymph % (Auto) 17.1 L, [place] % (Auto) 4.6, Eos % (Auto) 1.2, Baso % (Auto) 0.2, Absolute Neuts (auto) 7.3, Absolute Lymphs (auto) 1.65, Nucleated RBC % 0 04/14/21 18:30: Blood Type O POSITIVE, Antibody Screen NEGATIVE 04/14/21 18:30: Sodium 136, Potassium 4.2, Chloride 103, Carbon Dioxide 25.0, Anion Gap 8, BUN 6 L, Creatinine 0.69, Estim Creat Clear Calc 120.26, Est GFR (MDRD) Af Amer 128, Est GFR (MDRD) Non-Af 106, BUN/Creatinine Ratio 8.7 L, Glucose 77, Calcium 10.2 H, Total Bilirubin 0.40, AST 44 H, ALT 23, Alkaline Phosphatase 176 H, Lactate Dehydrogenase 320 H, Total Protein 8.1, Albumin 3.0 L, Globulin 5.1 H, Albumin/Globulin Ratio 0.6 L 04/14/21 18:50: Group B Strep DNA Negative, Specimen Comment Not Reportable Micro: Microbiology 04/14/21 18:47 Nasal Secretion SARS-CoV-2 Antigen (Rapid) - Final
[2021-04-15] MEDS: Lactated Ringers 500 ML 999 ML IV ×3 (12:30→22:35)
[2021-04-15] MEDS: fentaNYL-bupivacaine (epidural) 100 ML BAG EPIDURAL ×3 (13:24→22:53)
[2021-04-15] MEDS: Lactated Ringers 1,000 ML 200 ML IV ×2 (17:02→23:06)
[2021-04-15] MEDS: Ondansetron 4 MG/2 ML Vial IV (17:14)
[2021-04-15] MEDS: Amnioinfusion- 0.9% NS 1,000 ML IV.SOLN. 1000 ML INTRA-UTER (20:29)
[2021-04-15] MEDS: Acetaminophen 500 MG Tablet PO (20:33)
[2021-04-16] VITALS (20 sets, daily range): BP systolic 116–150; BP diastolic 68–88; PULSE 71–95; RESP 16–18; TEMP 36.3–37.4; O2SAT 98–100
[2021-04-16] MEDS: Oxytocin 30 units/NS 500 ml 30 UNITS/500 ML IV.SOLN 334 UNITS IV (02:51)
[2021-04-16] MEDS: Methylergonovine 0.2 MG/ML Ampul IM (02:54)
--- NOTE | 2021-04-16 03:02 | EX.PCM.OBRPT ---
Maternal Data Information Final AMY: 05/05/21 Final AMY Source: [place] <20 weeks Gestational age: 37w1d Vaginal Delivery Maternal Presentation Maternal Presentation: Medically Indicated Induction (Gestational Hypertension) Type of Induction: Pitocin and Garcia Bulb Medical Reason for Induction: Gestational Hypertension Operative Information Date of Procedure: 04/16/21 Pre-Operative Diagnosis: IUP, Gestational Hypertension Post-Operative Diagnosis: IUP, Gestational Hypertension Surgery / Procedure Performed: Spontaneous Vaginal Delivery Type of Anesthesia: Epidural Estimated Blood Loss: During 50 Fluids Replaced: Crystalloid Findings Description of Procedure: Spontaneous vaginal delivery of a viable male with Apgars of 8/9 from an occiput anterior presentation with clear amniotic fluid and normal three-vessel placenta. Cord around the neck x1 tight. No episiotomy. Second-degree midline laceration repaired with 3-0 Rapide suture. Sponges okay. Delivery physician: Zachary Cruz MD. Presentation: Vertex Amniotic Membrane Rupture Type: Artificial Amniotic Fluid Description: Clear Placental Delivery Description: Spontaneous Placenta Disposition: [facility] Cord Vessel Description: 3 Vessels Cord Entanglement: Around neck x 1, tight Infant A Gender: Male (1 minute): 8 (5 minute): 9 Post Vaginal Delivery Medications Given After Delivery: IV Pitocin and IM Methergin Episiotomy Description: None Laceration: Midline and 2nd degree Complication Complications: None
[2021-04-16] MEDS: Ibuprofen 600 MG Tablet PO ×3 (03:23→20:03)
[2021-04-16] MEDS: 0.9% Saline Lock 10 ML Syringe IV ×2 (05:28→07:18)
[2021-04-16] MEDS: Ondansetron 4 MG/2 ML Vial IV (07:18)
[2021-04-16] MEDS: buPROPion (XL) 300 MG TABLET.XL PO (09:13)
[2021-04-16] MEDS: Sertraline 50 MG Tablet 25 MG PO (09:13)
--- NOTE | 2021-04-16 10:35 | PCM.PN.OB ---
Subjective Subjective Patient doing well with minimal vaginal bleeding reported. Wants to go home tomorrow. Continuing present care. Objective Data Objective Data Vital Signs: Vital Signs Temp Pulse Resp BP Pulse Ox 98.9 F 71 17 117/68 100 04/16/21 09:20 04/16/21 09:20 04/16/21 09:20 04/16/21 09:20 04/16/21 04:41 Oxygen Delivery Method Room Air Weight: 276 lb 14.409 oz Body Mass Index (BMI) 42.0 Intake & Output: Intake and Output for Last 24 Hours 04/14/21 04/15/21 04/16/21 23:59 23:59 23:59 Intake Total 6179.55 / 6179.55 1250.77 / 1250.77 Output Total 750 / 750 350 / 350 Balance 5429.55 / 5429.55 900.77 / 900.77 Lab / Micro Data Result Diagrams: 04/14/21 18:30 04/14/21 18:30 Micro: Microbiology 04/14/21 18:47 Nasal Secretion SARS-CoV-2 Antigen (Rapid) - Final
--- NOTE | 2021-04-16 12:41 | CM.ED ---
SW Note SW met with patient in the room. Patient was holding the nb and appeared to be appropriately bonding with the nb. Patient was observed smiling throughout the assessment. Patient's , Masood, was in the shower but when he came into the room she gave permission for this short story writer to speak in his presence. Mom: Beatrice PNC: [place] WAGE ANALYST control: [employer] Baby: Deanna Ha : 04/15/21 Weight: 6# 8 ounces Agars: 11/05 Staff Training And Development Manager: [facility] Breast Feeding. When asked how breast feeding is going patient said so, so. MOB's other child: Chinmay, age 16 months. Currently with grandparents Housing: Patient, , and now 2 children will reside in their home in [place]. Transportation: Patient reports access to vehicle and is able to drive Supplies: Patient reports she has a crib, bassinet, diapers and clothes for the . Reports has all the supplies. Support: Patient said that her support is Masood's mom who lives 3 hours away but will come and stay for the better part of the week and be corrosion control fitter. Patient said that her sister also resides 3 hours away and would be available if I really need help. FOB is also taking 6 weeks off work with his vacation time, [place] time off and then [place]. Education Level: Patient graduated high school and college. Grad from [employer] in psychology. Does not appear to have any learning issues. 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 She works from home. 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 Patient said that when she returns to work she will have the nb go to the daycare that her son goes so she can work at home. l Agency Involvement: No agency involvement FOB: Masood Time Together: Began dating in 2018 and in 2019 Involved at : FOB will be involved at Employment: [employer] in [place] Other Children: Chinmay, age 16 months FOB MH/AOD/Domestic Violence: Denied by FOB Maternal MH history: Patient reports that she began to take Zoloft 2 weeks ago and that it is working good. Patient said that she spoke to her MD about feeling anxiety and overwhelmed related to work and caring for 2 children and having crazy thoughts. Patient said that the medication has been very helpful. Patient said that she had not taken medication in the past. Patient denied any current SI/HI. Patient said that after her son was born she had baby blues which she said were 4 days of crying approximately 1 week after her son was born. FOB asked difference between baby blues and post depression. FOB said that after son was born they decided to travel as patient enjoys traveling. Patient reports they have trip to [place] scheduled in April. Of note patient's PHQ2 score was 0. Patient educated on Shaken Baby, PPD and Safe Sleeping. Patient has never been a smoker and denied any alcohol or drug use. SW provided patient with a packet which included phone number for women experiencing PPD as well as educational information on PPD. Patient reports that she plans to continue to take her Zoloft at home. [place] spoke to DANIEL Farrar who indicated patient is doing ok and bonding appropriately. Plan: Home at discharge Balbina HUNTLEY
--- NOTE | 2021-04-16 14:36 | CASEMGMT ---
SW Note Mom: Beatrice James PNC: Ana Mack Control: Vasectomy Baby: Daniel Paulino : 04/16/21 Vaginal Delivery Due 05/05/21 Weight: 6# 9 ounces Union Laborer: Tony Harris breast and bottle MOB's Other Children: Jesus, age 6, who is currently with grandparents Housing: Patient and her reside in a home in [place] with their now 2 children Transporation: Patient has a vehicle and assess to vehicle to drive Supplies: Patient reports she has a crib, bassinet, carseat, diapers and clothes for the nb. Reports she has all the nb supplies Supports: Patient said that her support is her large family that lives locally and FOB said that his family lives locally and they are supportive. Patient said that her is also a support. FOB said that they have a gaggle of people offering support. Education Level: Patient graduated high school. Patient reports ADD but she has learned to manage it. 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 She plans to take 2 months off work following the of the nb. Patient said that her administrative team is supportive. When she returns to work the will go to a family friend who has an in home daycare. Agency: No agency involvement FOB: Sonido - Time Together: 13 years together and 8 years. Employment: [employer] FOB is father to Jesus WRIGHT MH/AOD/Domestic Violence: None Maternal MH History: Patient reports that she has been on Wellbutrin for 4 years. She reports that at the end of the first trimester she spoke to the MD about her symptoms and thus she began to take Zoloft. Patient said that once she began the Zoloft it was like night and day. Patient said that things are going well with the Wellbutrin and Zoloft. Patient said that her depression is caused by my anxiety. Patient said that the year has been difficult as a cousin who lived with them was diagnosed with colon cancer, her father got home from rehab, and both of her grandparents were put in a SNF and her grandmother last Sunday. Patient said that her called her best friend and her best friend said that patient is going to the doctor so patient went and explained her symptoms. Patient said that prior to Zoloft patient was spending the whole weekend on the couch. 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 Patient said that she was in denial and tearful and crying. Patient said that she felt that I did not want to exist and wanted the moment to end. Patient denied SI/HI. Patient reports that she plans to continue to take her medication. Patient said that she plans to ask for help if she needs it during this post period. Patient reports no alcohol use during . Patient said that she drinks socially when not but no more than 2 drinks related to her fathers addiction history. Patient denied any other drug use. Patient was provided with handout on PPD that included phone numbers and information on post depression Plan: Home Balbina HUNTLEY
[2021-04-16] MEDS: Acetaminophen 500 MG Tablet 1000 MG PO (16:50)
[2021-04-17] MEDS: Acetaminophen 500 MG Tablet 1000 MG PO ×2 (00:14→08:04)
[2021-04-17 00:19] VITALS: BP 129/80; PULSE 76; RESP 18; TEMP 36.1; O2SAT 100
[2021-04-17 03:06] VITALS: BP 117/70; PULSE 76; RESP 16; TEMP 36.4; O2SAT 98
[2021-04-17] MEDS: Ibuprofen 600 MG Tablet PO (03:06)
--- NOTE | 2021-04-17 07:36 | PCM.PN.OB ---
Subjective Subjective Patient without complaints. Breast-feeding going well. Minimal vaginal bleeding reported. Wants to go home today. Objective Data Objective Data Vital Signs: Vital Signs Temp Pulse Resp BP Pulse Ox 97.6 F L 76 16 117/70 98 04/17/21 03:06 04/17/21 03:06 04/17/21 03:06 04/17/21 03:06 04/17/21 03:06 Oxygen Delivery Method Room Air Weight: 276 lb 14.409 oz Body Mass Index (BMI) 42.0 Intake & Output: Intake and Output for Last 24 Hours 04/15/21 04/16/21 04/17/21 23:59 23:59 23:59 Intake Total 6179.55 / 6179.55 1250.77 / 1250.77 Output Total 750 / 750 350 / 350 Balance 5429.55 / 5429.55 900.77 / 900.77 Lab / Micro Data Result Diagrams: 04/14/21 18:30 04/14/21 18:30 Micro: Microbiology 04/14/21 18:47 Nasal Secretion SARS-CoV-2 Antigen (Rapid) - Final Assessment & Plan (1) Vaginal delivery: PLAN: day #2 status post routine spontaneous vaginal delivery. Blood pressures normal. No PIH symptoms. Will discharge to home with routine instructions.
--- NOTE | 2021-04-17 07:37 | PCM.DC ---
Discharge Instructions Diet Discharge Diet: No restrictions Activity Discharge Activity: May Drive (In 1 to 2 days if not taking narcotic pain medication), May Shower and May Take a Tub Bath May resume sexual activity in: 4-6 weeks Additional Activity Instructions:: Nothing in the vagina for 4-6 weeks. You may return to work/school in 6 weeks. Dressing / Incision Call your doctor if you observe: Fever of 101 or Higher, Inability to urinate, Inability to have a bowel movement and Using more than 1 pad per hour Follow Up Care Please Follow Up With: Chel Dias MD When: Call [phone] to make an appointment with your doctor in 6 weeks. Test Results: Test results from this visit will be discussed in further detail at your follow-up appointment, if applicable. Discharge Plan Admission Admit Date/Time: 04/14/21 16:50 Primary Reason for Your Visit: Vaginal Delivery Attending Provider: Zachary Cruz Discharge Orders/Prescriptions Prescriptions: No Action bupropion HCl [Wellbutrin XL] 300 mg tablet extended release 24 hr 300 mg PO QAM RF: 0 vit,[id number] 1 TABLET tablet 1 tab PO DAILY RF: 0 sertraline [Zoloft] 25 mg Tablet 25 mg PO DAILY RF: 0 Disposition Disposition (needs filled in before D/C Order can be placed): Home, Self Care
[2021-04-17] MEDS: Sertraline 50 MG Tablet 25 MG PO (08:04)
[2021-04-17] MEDS: buPROPion (XL) 300 MG TABLET.XL PO (08:05)
[2021-04-17 08:30] VITALS: BP 122/72; PULSE 79; RESP 18; TEMP 36.3; O2SAT 98
== END 2021-04-17 11:15 | disposition home or self-care (01) | DRG 807 ==
PROVIDERS: Admitting Provider Obstetrics & Gynecology; Visit Provider Obstetrics & Gynecology
DX: O14.04 Mild to moderate pre-eclampsia, complicating childbirth (principal); Z37.0 Single live birth; Z3A.37 37 weeks gestation of pregnancy; F41.9 Anxiety disorder, unspecified; F32.A Depression, unspecified; O99.344 Other mental disorders complicating childbirth; O70.1 Second degree perineal laceration during delivery; O69.1XX0 Labor and delivery complicated by cord around neck, with compression, not applicable or unspecified; Z87.891 Personal history of nicotine dependence; Z79.899 Other long term (current) drug therapy
CPT/HCPCS: 59050; 80053; 83615; 85025; 86850; 86900; 86901; 87081; 87426; 87653; 99218; J7030; J7120; A4216; G0378; J2405

== ENCOUNTER → 2021-08-25 | Outpatient (CLI) | payer BC, SELFPAY ==
[2021-08-25 10:22] LABS: Cholesterol 213 mg/dL (200); High Density Lipoprotein 50 mg/dL; Triglycerides 161 mg/dL; Very Low Density Lipoprotein 32 mg/dL (5-40)
== END | disposition home or self-care (01) ==
LOC: MFPLAB 08:32
PROVIDERS: PCP Nurse Practitioner Family; Referring Provider Nurse Practitioner Family; Visit Provider Nurse Practitioner Family
DX: Z00.00 Encounter for general adult medical examination without abnormal findings (principal)
CPT/HCPCS: 36415; 80061

== ENCOUNTER → 2022-05-15 | Outpatient (CLI) | payer OTHER, SELFPAY ==
[2022-05-15 19:39] LABS: Anion Gap 6 (5-15); BUN 9 mg/dL (7-18); BUN/Creat Ratio 9.6 RATIO (10-20); Calcium,Total 9.6 mg/dL (8.5-10.1); Chloride 103 mmol/L (98-107); Creatinine, Serum 0.94 mg/dL (0.55-1.02); EST Glomerular Filtration Rate 73 mL/min (>60); Est Glom Filt Rate - Afr Amer 89 mL/min (>60); Glucose 85 mg/dL (74-106); Sodium Level 137 mmol/L (136-145)
== END | disposition home or self-care (01) ==
PROVIDERS: PCP Nurse Practitioner Family; Visit Provider Family Medicine
DX: E28.2 Polycystic ovarian syndrome (principal)
CPT/HCPCS: 36415; 80048

== ENCOUNTER → 2022-10-03 | Outpatient (CLI) | payer OTHER, SELFPAY ==
[2022-10-03 18:08] LABS: Erythrocyte Sedimentation Rate 19 mm/hr (0-30)
[2022-10-03 18:52] LABS: CRP < 2.90 mg/L (0.0-3.0)
[2022-10-05 14:09] LABS: ANTINUCLEAR ANTIBODIES DIRECT Negative (Negative); Anti-dsDNA Ab <1 IU/mL (0-9)
== END | disposition home or self-care (01) ==
LOC: MFPLAB 14:39
PROVIDERS: PCP Nurse Practitioner Family; Visit Provider Family Medicine
DX: R21 Rash and other nonspecific skin eruption (principal)
CPT/HCPCS: 36415; 85652; 86038; 86140; 86225

== ENCOUNTER → 2023-04-14 | Outpatient (CLI) | payer OTHER, SELFPAY ==
[2023-04-14 08:37] LABS: Hematocrit 38.7 % (37-47); Hemoglobin 12.4 g/dL (12.0-15.0); Mean Corpuscular Hgb 28.4 pg (27.0-32.0); Mean Corpuscular Volume 88.6 fL (81-99); Mean Platelet Vol. 11.4 fl (6.2-12.0); Platelet Count 299 K/mm3 (150-450); RBC Distribution Width CV 12.1 % (11.6-14.6); RBC Distribution Width SD 39.5 fl (35.1-43.9); Red Blood Count 4.37 M/mm3 (4.2-5.4); White Blood Count 5.2 K/mm3 (4.4-11.0)
[2023-04-14 09:37] LABS: AST(SGOT) 10 U/L (15-37); Alanine Aminotransfer ALT/SGPT 15 U/L (13-56); Albumin, Serum 3.7 g/dL (3.2-5.0); Alkaline Phosphatase 106 U/L (45-117); Anion Gap 3 (5-15); BUN 11 mg/dL (7-18); BUN/Creat Ratio 11.3 RATIO (10-20); Chloride 107 mmol/L (98-107); Cholesterol 170 mg/dL (200); Creatinine, Serum 0.98 mg/dL (0.55-1.02); EST Glomerular Filtration Rate 70 mL/min (>60); Est Glom Filt Rate - Afr Amer 85 mL/min (>60); Estradiol 43.5 pg/mL; Free T3 2.4 pg/mL (2.18-3.98); Globulin 3.7 g/dL (2.2-4.2); Glucose 91 mg/dL (74-106); High Density Lipoprotein 47 mg/dL; Luteinizing Hormone 3.9 mIU/mL; Protein, Total 7.4 g/dL (6.4-8.2); Sodium Level 138 mmol/L (136-145); T4 Free Direct 1.02 ng/dL (0.76-1.46); Triglycerides 82 mg/dL; Very Low Density Lipoprotein 16 mg/dL (5-40)
[2023-04-16 09:35] LABS: T3 Total - Triiodothyronine 1.24 ng/mL (0.6-1.81); Vitamin D,25 Hydroxy 8.4 ng/mL
[2023-04-19 18:07] LABS: 17-Hydroxyprogesterone 18 ng/dL (.)
[2023-04-28 18:07] LABS: Androstenedione 52 ng/dL (41-262); Sex Hormone-binding Globulin 35.2 nmol/L (24.6-122.0); Testosterone, % Free 1.62 % (0.50-2.80); Testosterone, Free 0.18 ng/dL (0.10-0.85); Testosterone, Total 11 ng/dL (8-60)
== END | disposition home or self-care (01) ==
LOC: LAB 07:46
PROVIDERS: PCP Nurse Practitioner Family; Referring Provider Obstetrics & Gynecology; Visit Provider Obstetrics & Gynecology
DX: Z13.220 Encounter for screening for lipoid disorders (principal); E28.2 Polycystic ovarian syndrome; N92.6 Irregular menstruation, unspecified; Z13.1 Encounter for screening for diabetes mellitus; E55.9 Vitamin D deficiency, unspecified
CPT/HCPCS: 36415; 80053; 80061; 82157; 82306; 82533; 82627; 82670; 83001; 83002; 83498; 83516; 84270; 84402; 84403; 84439; 84480; 84481; 85027; 82626

== ENCOUNTER → 2023-04-25 | Outpatient (CLI) | payer OTHER, SELFPAY ==
[2023-04-25 08:09] LABS: Glucose 75GTT - Fasting 101 mg/dL (70-99)
[2023-04-25 08:22] LABS: Free T3 2.5 pg/mL (2.18-3.98); T4 Free Direct 0.97 ng/dL (0.76-1.46); Thyroid Stim Hormone (TSH) 1.19 uIU/mL (0.358-3.74)
[2023-04-25 09:16] LABS: Glucose 75GTT - 60 minutes 163 mg/dL (100-160)
[2023-04-25 09:21] LABS: Insulin 75GTT - Fasting 28.2 mU/L (2.6-37.6)
[2023-04-25 09:22] LABS: T3 Total - Triiodothyronine 1.24 ng/mL (0.6-1.81)
[2023-04-25 09:24] LABS: Glucose 75GTT - 30 minutes 164 mg/dL (100-160)
[2023-04-25 10:17] LABS: Glucose 140 mg/dL (74-106)
[2023-04-25 10:17] LABS: Glucose 75GTT - 120 minutes 71 mg/dL (70-140)
[2023-04-25 10:20] LABS: Insulin 75GTT - 120 min 112.5 mU/L (Not Estab.)
[2023-04-25 13:01] LABS: Insulin 75GTT - 60 min 449.8 mU/L (Not Estab)
[2023-04-25 13:01] LABS: Insulin 75GTT - 30 MIN 319.9 mU/L (Not Estab.)
[2023-04-25 13:01] LABS: Insulin 507.4 mU/L (2.6-37.6)
[2023-04-26 14:21] LABS: Prolactin 5.6 ng/mL; Thyroid Stim Hormone (TSH) 0.95 uIU/mL (0.358-3.74)
[2023-04-26 14:21] LABS: Prolactin 5.5 ng/mL; Thyroid Stim Hormone (TSH) 0.89 uIU/mL (0.358-3.74)
== END | disposition home or self-care (01) ==
LOC: LAB 07:05
PROVIDERS: PCP Family Medicine; Referring Provider Obstetrics & Gynecology; Visit Provider Obstetrics & Gynecology
DX: Z13.1 Encounter for screening for diabetes mellitus (principal); N92.6 Irregular menstruation, unspecified; E28.2 Polycystic ovarian syndrome
CPT/HCPCS: 36415; 82947; 82951; 82952; 83525; 84146; 84439; 84443; 84480; 84481

== ENCOUNTER → 2023-08-21 | Outpatient (CLI) | payer OTHER, SELFPAY ==
[2023-08-25 14:13] LABS: HPV APTIMA, High Risk Negative (Negative)
== END | disposition home or self-care (01) ==
LOC: LABSPEC 16:53
PROVIDERS: PCP Family Medicine; Referring Provider Nurse Practitioner Family; Visit Provider Nurse Practitioner Family
DX: Z12.4 Encounter for screening for malignant neoplasm of cervix (principal)
CPT/HCPCS: 87624; 88175; G0145

== ENCOUNTER → 2023-08-27 | Outpatient (CLI) | payer OTHER, SELFPAY ==
--- NOTE | 2023-08-27 15:16 | US_ITS ---
INDICATION: abnormal uterine bleeding -- surgical planning EXAMINATION: Ultrasound US Pelvis Non OB Complete With Transvaginal Imaging TECHNIQUE: Transabdominal and transvaginal pelvic ultrasound was performed. Grayscale, spectral waveform, and color flow Doppler evaluation of the adnexa. COMPARISON: None. FINDINGS: UTERUS: Anteverted. The uterus measures 9.3 x 4.3 x 5.7 cm. Normal myometrial appearance. The endometrial stripe measures 8 mm in AP diameter which is within normal limits. Multiple anechoic nabothian cysts. RIGHT OVARY: 5.5 x 2.5 x 4.1 cm. Anechoic 3.0 cm physiologic cyst with adjacent small follicle. Preserved Doppler vascular flow LEFT OVARY: 3.2 x 2.2 x 3.4 cm. Anechoic 2.4 cm dominant follicle.. Non-enlarged, normal echogenicity. Preserved Doppler vascular flow. FREE FLUID: Trace anterior uterine anechoic free fluid.. US/Pelvic w/ Transvaginal IMPRESSION: Unremarkable sonographic appearance of the endometrial stripe, within normal limits in thickness for age. 3.0 cm right and 2.4 cm left physiologic cysts otherwise unremarkable ovaries. Trace anterior periuterine free fluid which is commonly physiologic. Electronically Signed: Son Robb MD at 2:44 EDT ,
== END | disposition home or self-care (01) ==
LOC: US 15:16
PROVIDERS: PCP Family Medicine; Referring Provider Nurse Practitioner Family; Visit Provider Nurse Practitioner Family
DX: N93.9 Abnormal uterine and vaginal bleeding, unspecified (principal); E28.2 Polycystic ovarian syndrome
CPT/HCPCS: 76830; 76856

== ENCOUNTER → 2023-09-17 | Outpatient (CLI) | payer OTHER, SELFPAY ==
[2023-09-17 11:35] LABS: Absolute Lymphocyte Count 1.82 X10^3/uL (0.83-4.51); Absolute Neutrophil Count 4.4 X10^3/uL (2.0-7.7); Basophil# 0.04 X10^3/uL; Basophil% 0.6 % (0-1); Eosinophil# 0.34 X10^3/uL; Eosinophils% 4.8 % (0-5); Hematocrit 38.1 % (37-47); Hemoglobin 12.3 g/dL (12.0-15.0); Lymphocyte # 1.82 X10^3/ul (0.83-4.51); Lymphocyte % 25.8 % (19-41); Mean Corp Hgb Conc 32.3 g/dL (32-36); Mean Corpuscular Hgb 28.3 pg (27.0-32.0); Mean Corpuscular Volume 87.8 fL (81-99); Mean Platelet Vol. 11.4 fl (6.2-12.0); Monocyte# 0.45 X10^3/uL; Monocyte% 6.4 % (0-10); NRBC Flagged by Analyzer 0 % (0-5); Neutrophil # 4.36 X10^3/uL (2.7-7.7); Neutrophil % 61.7 % (47-70); Platelet Count 293 K/mm3 (150-450); RBC Distribution Width CV 12.3 % (11.6-14.6); RBC Distribution Width SD 39.8 fl (35.1-43.9); Red Blood Count 4.34 M/mm3 (4.2-5.4); White Blood Count 7.1 K/mm3 (4.4-11.0)
[2023-09-17 12:21] LABS: ALB/GLOB Ratio 0.9 RATIO (0.9-2.4); AST(SGOT) 11 U/L (15-37); Alanine Aminotransfer ALT/SGPT 20 U/L (13-56); Albumin, Serum 3.7 g/dL (3.2-5.0); Alkaline Phosphatase 94 U/L (45-117); Anion Gap 4 (5-15); BUN 8 mg/dL (7-18); BUN/Creat Ratio 9.7 RATIO (10-20); Calcium,Total 8.9 mg/dL (8.5-10.1); Chloride 106 mmol/L (98-107); Creatinine, Serum 0.83 mg/dL (0.55-1.02); EST Glomerular Filtration Rate 84 mL/min (>60); Est Glom Filt Rate - Afr Amer 102 mL/min (>60); Globulin 3.9 g/dL (2.2-4.2); Glucose 91 mg/dL (74-106); Potassium 3.9 mmol/L (3.5-5.1); Protein, Total 7.6 g/dL (6.4-8.2); Sodium Level 136 mmol/L (136-145); T4 Free Direct 0.93 ng/dL (0.76-1.46); Thyroid Stim Hormone (TSH) 1.15 uIU/mL (0.358-3.74)
== END | disposition home or self-care (01) ==
LOC: LAB 11:14
PROVIDERS: PCP Family Medicine; Referring Provider Nurse Practitioner Family; Visit Provider Nurse Practitioner Family
DX: Z13.29 Encounter for screening for other suspected endocrine disorder (principal); N93.9 Abnormal uterine and vaginal bleeding, unspecified; E28.2 Polycystic ovarian syndrome
CPT/HCPCS: 36415; 80053; 84439; 84443; 85025

== ENCOUNTER → 2023-09-25 | Outpatient (CLI) | payer OTHER, SELFPAY ==
--- NOTE | 2023-09-25 15:10 | EMB_PTH ---
PATIENT: LUZ MARINA SCHMIDT LOC: [facility] U#:[id number] AGE/SX: 33/F ROOM: RE09/25/[address]: Dr. Jess Alas MD : 1990 BED: DIS: 09/25/2023 SPEC #: [id number] RECD: 09/25/23 17:41 STATUS: STEFANY LEOS #: [id number] [place]: 09/25/23 15:[address]: Jess Alas DEPT: SURGICAL PATHOLOGY RECD BY: Na Nguyen ENTERED: 09/26/23 09:23 SP TYPE: ENDOM BX/C JOSE EDUARDO DR: Dr. Kenny Butler MD Tissues: Endometrium, NOS Procedures: Surgery Specimen Level IV HEADER OPERATION: Endometrial biopsy PRE-OP DIAGNOSIS: Abnormal uterine bleeding TISSUE SUBMITTED: Endometrial lining MICROSCOPIC DIAGNOSIS Endometrium, biopsy: Secretory endometrium. AM/mr 09/27/2023 MICROSCOPIC DESCRIPTION Slides are reviewed. GROSS DESCRIPTION Received in fixative is one container labeled with the patient's name and designated Endometrial biopsy. The specimen consists of multiple irregular fragments of light to dark dean soft tissue that in aggregate measure 2.0 x 2.0 x 0.2 cm. The specimen is totally submitted in one cassette. AM/mr 09/26/2023 TC:5 CPT:19029
== END | disposition home or self-care (01) ==
PROVIDERS: PCP Family Medicine; Visit Provider Obstetrics & Gynecology
DX: N93.9 Abnormal uterine and vaginal bleeding, unspecified (principal)
CPT/HCPCS: 88305

== ENCOUNTER 2023-10-02 05:11 | Day surgery (SDC) | payer OTHER, SELFPAY ==
[2023-10-01 09:28] LABS: Internal QC Validated? YES +Cl - CLEAR BKGD; Pregnancy, Urine Negative Negative
[2023-10-02] VITALS (15 sets, daily range): BP systolic 102–151; BP diastolic 49–118; PULSE 62–101; RESP 16–18; TEMP 36.3–36.6; O2SAT 93–100; BMI 41.6
[2023-10-02 05:50] LABS: Internal QC Validated? YES +Cl - CLEAR BKGD; Pregnancy, Urine Negative Negative
[2023-10-02] MEDS: Lactated Ringers 1,000 ML 40 ML IV (06:23)
[2023-10-02] MEDS: Magnesium 1 GM over 15 mins IV (06:23)
[2023-10-02] MEDS: Scopolamine 1mg/72hr Patch 1 PATCH TD (06:24)
[2023-10-02] MEDS: Celecoxib 200 MG Capsule 400 MG PO (06:24)
[2023-10-02] MEDS: Gabapentin 600 MG Tablet PO (06:24)
[2023-10-02] MEDS: Enoxaparin 40 MG/0.4 ML Syringe SC (06:25)
[2023-10-02] MEDS: Acetaminophen 500 MG Tablet 1000 MG PO ×2 (06:25→12:36)
[2023-10-02] MEDS: dexAMETHasone 4 MG/ML Vial 8 MG IV (06:25)
[2023-10-02] MEDS: Phenazopyridine 95 MG Tablet 190 MG PO (06:25)
[2023-10-02 07:00] LABS: Bedside Glucose 89 mg/dL (74-106)
--- NOTE | 2023-10-02 07:25 | PCM.HP.BLA ---
History and Physical MR#: [id number] Acct: [id number] Name: LUZ MARINA SCHMIDT Rep #: [id number] : 1990 Provider: Dr. Jess Alas MD Age/Sex: 33/F Location: [facility] [place] Status: Signed Intake Vital Signs 08/20/2413:02 09/24/2414:32 09/24/2414:34 Height 5 ft 8 in 5 ft 8 in 5 ft 8 in Weight: 270 lb 275 lb BMI 41.0 41.8 BP 122/80 H 111/81 H Blood Pressure Location Rt brachial Intake Visit Reasons: EMB Catering Service Manager Required: No Is patient in pain?: No Allergies loperamide (From Imodium A-D) Allergy (Severe, Verified 09/25/23 15:33) Anaphylaxis Medications ?Medication ?Instructions ?Recorded ?Confirmed ?Type bupropion HCl 300 mg 24 hr tablet, 300 mg PO QAM depression 01/21/20 09/25/23 History extended release (Wellbutrin XL) multivitamin (Daily Multi-Vitamin 1 tab PO DAILY 08/21/23 09/25/23 History tablet) sertraline 100 mg tablet 100 mg PO DAILY 08/21/23 09/25/23 History spironolactone 25 mg tablet 25 mg PO DAILY 08/21/23 09/25/23 History Post menopausal: No Patient : No : No PFSH PFSH Medical History (Updated 09/25/23 @ 16:[address] Jess Alas MD) Vaginal delivery Depression Gestational hypertension Fall Hand laceration Lung nodule Anxiety Surgical History No pertinent past surgical history Family History Father Diabetes TBI (traumatic brain injury)Mother Diabetes Hypothyroid Social History (Updated 09/25/23 @ 15:34 by Gabriella Jaime) household members: spouse and children number of children: 2 current occupational exposures/hazards: No Smoking Status: Current every day smoker tobacco type: cigarettes Tobacco: How many years used: 11 alcohol intake: never substance use type: does not use seatbelt use: always do you feel safe at home: Yes History 2 Elective abortions Hx Para 2 Spontaneous abortions Hx # Term Pregnancies Ectopic pregnancies Hx # Pregnancies Multiple births # of living children Past Pregnancies Del. Date Name GA/Weeks Outcome Route Bth Weight Infant Gen [facility] FOB Unknown Lee Unknown Daniel HPI EMB Details: LUZ MARINA SCHMIDT is a 33 year old who presents for irregular menses pcos. since july she had ten days of bleeding in july and then has had them on and off for the last two months. She has been treated with OCP in the past and she had alopecia and weight changes. she declines hormonal intervention. her menses are very heavy and irregualr and painful, she is wanting definitive treatment. Female Reproductive History Cycle Length: <21 Bleeding Duration: 5 Questions: metorrhagia: Yes (irregular), sexually active: Yes, dyspareunia: No and PCB: No Menopausal Symptoms: No hot flashes, No night sweats, No weight change, No mood changes, No difficulty concentrating, No sleep problems and No change in libido ROS Const Constitutional: Denies fatigue, night sweats, weight gain or weight loss ENT ENT: Reports system reviewed and no additional complaints, except as documented Cardio Card: Denies chest pain Resp Resp: Denies cough or dyspnea GI GI: Reports as per HPI; Denies constipation, nausea or vomiting : Reports as per HPI; Denies hot flashes, nipple discharge, vaginal discharge, vaginal dryness, vaginal odor or vaginal pruritus Musc Musc: Denies arthralgias, back pain or muscle weakness Skin Skin/Breast: Denies alopecia, change in hair, dry skin, breast mass, breast pain, breast skin changes or nipple discharge Neuro Neuro: Reports system reviewed and no additional complaints, except as documented Psych Psych: Reports system reviewed and no additional complaints, except as documented; Denies change in libido or difficulty concentrating Endo Endo: Denies cold intolerance, excessive sweating, heat intolerance or polydipsia Sukhdeep/Lymph Hematologic/Lymphatic: Denies easy bleeding, Denies easy bruising and Denies lymphadenopathy Exam Const General: cooperative, healthy appearing, comfortable, no acute distress and well developed Orientation: alert [facility] Head: normal to inspection and normocephalic Ears: hearing grossly normal bilaterally and external ears normal Nose: external nose normal and nares normal Face and sinus: normal facial exam Neck Neck: normal visual inspection and no lymphadenopathy Thyroid: thyroid normal Chest Chest palpation & inspection: normal inspection of the chest Resp Effort & Inspection: normal respiratory effort Auscultation: clear to auscultation bilaterally Cardio Rate: regular rate Rhythm: regular rhythm Heart Sounds: S1 normal and S2 normal GI Inspection: normal to inspection and non-distended Palpation: soft and no hepatosplenomegaly General: bladder normal to palpation External Female Exam: normal external appearance and normal appearance of the urethra Urethra: normal appearance of the urethra, normal palpation and no discharge Speculum Exam - Vagina: normal appearance of the vagina and normal vaginal discharge Speculum Exam - Cervix: normal appearance of the cervix and nontender Bimanual Exam- Vagina & Uterus: normal bimanual exam, uterine size normal, bladder normal to palpation, uterine shape normal, No tender, uterine mobility normal, consistency normal, normal palpation and non-tender Bimanual Exam- Adnexa, other: normal adnexae, adnexae mobile, no masses and normal Pelvic Support: normal Musc Other: gross motor intact no deficits, full bilateral strength Skin General: no rashes or lesions noted Neuro General: patient alert, patient awake, moves all extremities and no focal motor deficits Motor: muscle tone normal throughout Extrem General: normal to inspection and no pedal edema Psych Appearance: grossly normal Mental Status: mental status grossly normal Affect: normal affect Speech and Movement: speech and movement normal Office Procedures Endometrial Biopsy Endometrial Biopsy Test: Yes declined Consent Signed: Yes Time out checklist: patient, procedure, site marked/identified, positioning of patient, supplies available, allergies confirmed and team agrees on procedure Time out time: 16:11 tenaculum used: Yes dilator used: No Details: Cervix prepped with betadine and pipelle inserted into uterus without complication. Specimen obtained and sent to lab for analysis. All instruments removed from vagina without complications. Excellent hemostasis noted. Results POC Urine Office , Urine Negative Last Edit by Gabriella Jaime on 09/25/23 15:41 Coding Level of Care Code Off vis,est,level 4 Diagnoses Polycystic ovarian syndrome E28.2 CPT Codes Endometrial Biopsy (96330) Assessment and Plan Assessment and Plan (1) Polycystic ovarian syndrome: Status: Acute Comment: nl US. emb done. nl cbc and tsh. didn't tolerate hormonal treatments- ocp, iud, depo provera, and nuvaring in past. smoker. offered lysteda and reviewed surgical options. plan TVHBS possible LAVH Orders: Orders Endometrial Biopsy Today N93.9 - Abnormal uterine and vaginal bleeding, unspecified POC Urine Today Z30.9 - Encounter for contraceptive management, unspecified Plan After discussing the patient's diagnosis and treatment plan options, patient wishes to proceed with surgical management. I have discussed with the patient the risks, benefits, and alternatives of the procedure which include but are not limited to risks of anesthesia, bleeding, infection, possible damage to bowel, bladder, or surrounding vasculature which could lead to additional surgery to evaluate any complications. Patient agrees to procedure and wishes to proceed. ACOG/uptodate references given for additional information regarding procedure. UPDATE- I have seen the patient and performed any clinically relevant updates to the history and physical exam. Jess Alas MD
--- NOTE | 2023-10-02 07:27 | OP.PCM_ITS ---
Problems Associated Problem List Diagnoses (1) Polycystic ovarian syndrome: (2) Tobacco abuse: (3) Abnormal uterine bleeding: Report of Operation Date of Procedure: 10/02/23 Pre-Operative Diagnosis: see A/P Post-Operative Diagnosis: same Surgery/Procedure Performed:: TVH BS Description of Surgical Findings:: bilaterally enlarged ovaries with right simple cyst and left hemorrhagic cyst e nlarged boggy uterus suspect adenomyosis Surgeon: Jess Alas grease man: Barrera Kumar Type of Anesthesia: General Special Medications: floseal Specimen's removed: uterus, tubes Drains: formna Estimated Blood Loss (mL): 200 Fluids Replaced: crystalloid Description of Procedure: Patient was taken to the operating room and was placed under general anesthesia was prepped and draped in normal sterile fashion in the dorsal lithotomy position. Preoperative antibiotics and SCDs and Forman catheter was placed inside the bladder. Weighted speculum was placed in the vagina and the anterior and posterior lip of the cervix was grasped with 2 Sarahy clamps and circumferentially injected with dilute vasopressin. A circumferential incision was made with a scalpel and the posterior cul-de-sac was entered into sharply and a longneck speculum was placed. The anterior cul-de-sac was also dissected down and entered into sharply and the uterosacral ligaments were clamped cut and suture ligated bilaterally followed by the cardinal ligaments which were Clamped cut and suture ligated bilaterally with 0 Monocryl. The uterus serially descended and progressive bites were taken bilaterally up to the level of the utero-ovarian ligament bilaterally which was clamped transected and double ligated with 0 Monocryl suture and 0 Vicryl free tie. Bilateral fallopian tubes and ovaries were well visualized and noted be within normal limits except for bilateral ovarian enlargement due to cysts which were drained with the bovie. the left ovary was oversewn with 2-0 vicryl and floseal used for hemostasis. the bilateral fallopian tubes were transected across the base with a Roseann clamp and removed and sutured with 0 Vicryl suture. Excellent hemostasis was noted. Posterior peritoneum was reapproximated with 2-0 Vicryl and an apical cuff posterior vaginal suture and bilateral uterosacral ligaments across the posterior cul-de-sac skimming along to provide apical support to the vagina suture was placed with 2-0 pds. The vagina was closed with [id number] 0 Vicryl pop offs including the posterior and anterior peritoneum in the reapproximation. Excellent hemostasis was noted. All instruments removed from the vagina clear urine was noted at the end of the procedure and patient was awoken and taken recovery in stable condition. Grafts/Implants Used: none Procedure Start Time: 07:59 Procedure Stop Time: 09:15 Complications none Admit VTE Documentation VTE Present on Admission: No VTE Mechan Device Prophylaxis: SCD's VTE Pharm Prophylaxis ordered?: Yes Multi Select Codes Urinary/Genital Urinary/Genital CPT Codes: 97229 TVH+BS/O <250gr uterus
[2023-10-02] MEDS: Cefazolin 3 GM in 0.9% Normal Saline (100mL Bag) 100 ML IV (07:30)
--- NOTE | 2023-10-02 07:30 | HYST_PTH ---
PATIENT: LUZ MARINA SCHMIDT [place] [facility] [id number] AGE/SX: 33/F ROOM: RE10/02/[address]: Dr. Jess Alas MD : 1990 BED: DIS: 10/02/2023 SPEC #: [id number] RECD: 10/02/23 10:49 STATUS: STEFANY LEOS #: [id number] [place]: 10/02/23 07:[address]: Jess Alas DEPT: SURGICAL PATHOLOGY RECD BY: Cristobal Kaye ENTERED: 10/02/23 11:51 SP TYPE: HYSTERECT OTHR DR: Dr. Kenny Butler MD Tissues: Uterus, NOS Procedures: Surgery Specimen Level V HEADER OPERATION: ERAS, hysterectomy, vaginal, bilateral salpingectomy PRE-OP DIAGNOSIS: Polytypic ovarian syndrome TISSUE SUBMITTED: Cervix, uterus, bilateral fallopian tubes MICROSCOPIC DIAGNOSIS Uterus, cervix, bilateral fallopian tubes, hysterectomy and bilateral salpingectomy: Cervix - Mild acute and chronic cystic cervicitis. Endometrium - Proliferative endometrium. Myometrium - no pathologic diagnosis. Bilateral fallopian tubes- no pathologic diagnosis. ASHLEE/ 10/03/2023 MICROSCOPIC DESCRIPTION Slides are reviewed. GROSS DESCRIPTION Received in fixative is one container labeled with the patient's name and designated uterus, cervix, bilateral fallopian tubes. The specimen consists of a hysterectomy specimen consisting of uterus with cervix and detached bilateral fallopian tubes. The uterus with cervix 100 weighs gm and measures 11.0 x 5.5 x 4.0 cm. The serosal surface is dean glistening. The ectocervical mucosa is unremarkable. The external os is oval and patoulous in contour. The endocervical canal measures 4.0 cm in length and the endocervical mucosa is dean glistening and unremarkable. Sections reveal a few cysts with mucoid material. The triangular endometrial cavity measures 5.0 cm in length and 2.0 cm in width. The endometrium is dean glistening without any mass lesions and measures 0.2 cm in thickness. Sections of the uterine wall do not reveal any mass lesions and measures up to 2.5cm in thickness. Bilateral fallopian tubes are not identified as right or left and measures 4.5cm in length and 0.5cm in diameter and 3.5cm in length and 0.5cm in diameter. The fimbral ends are identified. Sections reveal unremarkable cut surfaces. Escalation Engineer sections are submitted in 8 cassettes as follows: 1 - anterior cervix, 2 - posterior cervix, 3 & 4 - anterior uterine wall, 5 & 6 - posterior uterine wall, 7- one fallopian tube, 8- second fallopian tube. ASHLEE: 10/02/23 TC:3 CPT: 13270
--- NOTE | 2023-10-02 07:37 | DCINST_ITS ---
Discharge Instructions Diet Discharge Diet: No restrictions Activity Discharge Activity: Return to Normal Activity, May Not Drive (while taking narcotic pain medications.) and May Shower May resume sexual activity in: 6-8 weeks Dressing / Incision Call your doctor if your incision/area has: Continuous Slow Oozing, Sudden Increased Bleeding, Increased Pain/ Swelling, Increased Redness and Foul Smelling Discharge Call your doctor if you observe: Fever of 101 or Higher, Inability to urinate, Inability to have a bowel movement and Using more than 1 pad per hour Follow Up Care Please Follow Up With: Jess Alas MD Test Results: Test results from this visit will be discussed in further detail at your follow- up appointment, if applicable. Discharge Plan Admission Attending Provider: Jess Alas Primary Care Provider: Kenny Butler Instructions Print Language: Panamanian Discharge Orders/Prescriptions Prescriptions: New oxycodone-acetaminophen [Percocet] 5-325 mg tablet 1 tab PO Q6H PRN (Reason: pain) 7 Days Qty: 20 0RF naproxen 500 mg tablet 500 mg PO BID PRN PRN (Reason: Pain) Qty: 30 1RF Continued bupropion HCl [Wellbutrin XL] 300 mg tablet extended release 24 hr 300 mg PO QAM spironolactone 25 mg tablet 25 mg PO DAILY sertraline 100 mg tablet 100 mg PO DAILY multivitamin [Daily Multi-Vitamin] Tablet 1 tab PO DAILY dicyclomine 10 mg capsule 10 mg PO BID PRN (Reason: abdominal pain) Colostrum Prime Life 400 mg capsule,delayed release(DR/EC) 180 mg PO DAILY fexofenadine [Meri Allergy] 180 mg tablet 180 mg PO DAILY Referrals / Follow Up: Kenny Butler MD [Primary Care Provider] - Disposition Disposition (needs filled in before D/C Order can be placed): Home, Self Care
--- NOTE | 2023-10-02 07:48 | PCM.PRE.AN2 ---
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 When Was Last Pacemaker Check QUESTION #4 FULL TEXT: You/Your Family Experience fever (hyperthermia) with Anesthesia Any additional information?: Yes Airway/Respiratory Assessment Respiratory Assessment - organizational research consultant: Respiratory Tract Infection Hx - organizational research consultant Hx Respiratory Tract Infection No 09/28/23 13:11 Any additional information?: Yes STOP Sleep Apnea STOP Sleep Apnea - organizational research consultant: STOP Sleep Apnea - organizational research consultant Hx Hypertension No 09/28/23 13:11 Hx Sleep Apnea No 09/28/23 13:11 CPAP BIPAP Do you snore loudly (louder Yes 09/28/23 13:11 than talking or can be heard Do you often feel tired/ No 09/28/23 13:11 fatigued/ sleepy during daytime? Has anyone observed you stop No 09/28/23 13:11 breathing during sleep? STOP Results Negative 09/28/23 13:11 QUESTION #5 FULL TEXT : Do you snore loudly (louder than talking or can be heard through closed doors)? Tobacco Use History Tobacco Use History - organizational research consultant: Tobacco Use Histor - organizational research consultant Tobacco Use Smoking Status Current every day smoker 09/28/23 13:11 Hx Tobacco Use Yes 09/28/23 13:11 Years Smoking Packs Smoked per Day Smoking Cessation Date was within the last 15 years Hx Smoking Cessation Date Hx Smoking Cessation Counseling /Reproduction History /Reproductive History - organizational research consultant: /Reproductive Hx- organizational research consultant Hx Now No 09/28/23 13:11 Gestational Age (in weeks): EDC: Hx Hx Para Hx Section SAB No 09/28/23 13:11 Hematologic Medial History Hematologic Hx - organizational research consultant: 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 Specify any problems Hx of Preganancy in last 3 No 09/28/23 13:11 Months Nurse Filling Out Transfusion VCHRISTIN 09/28/23 13:11 & Questions: Date: 09/28/23 09/28/23 13:11 Time: 13:14 09/28/23 13:11 Patient unable to answer at this time (ie. confused, unrespo PONV PONV - organizational research consultant: PONV - organizational research consultant Female Yes 09/28/23 13:11 HX of Motion Sickness Yes 09/28/23 13:11 HX of N/V After Surgery No 09/28/23 13:11 Non-Smoker Yes 09/28/23 13:11 Duration of Surgery greater Yes 09/28/23 13:11 than 60 minutes Number of Risk Factors 4 09/28/23 13:11 PONV Score Severe Risk 09/28/23 13:11 Anesthesia focused assessment* Height & Weight: Anesthesia: Height & Weight Height 5 ft 8 in 10/02/23 06:12 Weight: 124.284 kg 10/02/23 06:12 Body Mass Index (BMI) 41.6 10/02/23 06:12 Temperature: 97.3 F Pulse Rate: 90 Blood Pressure: 123/93 Respiratory Rate: 18 Pulse Ox: 100 Active Medications: Current Medications Generic Name Dose Route Start Last Admin Trade Name Lonnieq PRN Reason Stop Dose Admin Acetaminophen 1,000 mg 10/02/23 12:20 10/02/23 06:25 Acetaminophen 500 Mg Tablet PO 10/02/23 12:21 1,000 mg PREOP ONE Administration Acetaminophen 1,000 mg 10/02/23 12:00 Acetaminophen 500 Mg Tablet PO Q6 [facility] Celecoxib 400 mg 10/02/23 12:20 10/02/23 06:24 Celecoxib 200 Mg Capsule PO 10/02/23 12:21 400 mg X1 ONE Administration Dexamethasone Sodium Phosphate 8 mg 10/02/23 12:20 10/02/23 06:25 Dexamethasone 4 Mg/Ml Vial IV 10/02/23 12:21 8 mg X1 ONE Administration Docusate Sodium 100 mg 10/02/23 10:00 Docusate Sodium 100 Mg Capsule PO BID [facility] Enoxaparin Sodium 40 mg 10/02/23 12:20 10/02/23 06:25 Enoxaparin 40 Mg/0.4 Ml Syringe SC 10/02/23 12:21 40 mg X1 ONE Administration Enoxaparin Sodium 40 mg 10/03/23 10:00 Enoxaparin 40 Mg/0.4 Ml Syringe SC DAILY [facility] Gabapentin 600 mg 10/02/23 12:20 10/02/23 06:24 Gabapentin 600 Mg Tablet PO 10/02/23 12:21 600 mg PREOP ONE Administration Lactated Ringer's 1,000 mls @ 40 mls/hr 10/02/23 12:20 10/02/23 06:23 IV 40 mls/hr .Q25H [facility] Administration Cefazolin Sodium 3 gm/ Sodium 115 mls @ 150 mls/hr 10/02/23 12:20 Chloride IV 10/02/23 13:05 PREOP ONE Magnesium Sulfate 1 gm/ 102 mls @ 408 mls/hr 10/02/23 12:20 10/02/23 06:23 Dextrose IV 10/02/23 12:34 408 mls/hr X1 ONE Administration Lactated Ringer's 1,000 mls @ 70 mls/hr 10/02/23 07:45 IV 10/03/23 07:46 .[id number] [facility] Insulin Human Lispro 0 unit 10/02/23 12:20 Insulin Lispro 100 Unit/Ml Insuln.Pen SC Q4H PRN PRN BG >/= 180, SEE PROTOCOL Protocol Ketorolac Tromethamine 30 mg 10/02/23 12:00 Ketorolac 30 Mg/Ml Syringe IV 10/03/23 18:01 Q6 [facility] Magnesium Chloride 128 mg 10/02/23 07:32 Magnesium Chloride 64 Mg Delay Rel.Tablet PO DAILY PRN PRN Constipation Nutritional Formula (Lactose Free) 120 ml 10/03/23 08:00 Ensure Plus High Protein 120 Ml Liquid PO TIDCM [facility] Ondansetron HCl 4 mg 10/02/23 12:20 Ondansetron 4 Mg/2 Ml Vial IV 10/02/23 12:21 X1 ONE Ondansetron HCl 4 mg 10/02/23 07:32 Ondansetron Odt 4 Mg Tablet PO Q6H PRN PRN NAUSEA Oxycodone HCl 5 - 10 mg 10/02/23 07:32 Oxycodone 5 Mg Tablet PO Q4H PRN PRN Pain Score 4-10 Phenazopyridine HCl 190 mg 10/02/23 12:20 10/02/23 06:25 Phenazopyridine 95 Mg Tablet PO 10/02/23 12:21 190 mg X1 ONE Administration Scopolamine HBr 1 patch 10/02/23 12:20 10/02/23 06:24 Scopolamine 1mg/72hr Patch TD 10/02/23 12:21 1 patch X1 ONE Administration Focused labs Anesthesia Preop lab: CBC WBC 7.1 K/mm3 (4.4-11.0) 09/17/23 11:17 RBC 4.34 M/mm3 (4.2-5.4) 09/17/23 11:17 Hgb 12.3 g/dL (12.0-15.0) 09/17/23 11:17 Hct 38.1 % (37-47) 09/17/23 11:17 Plt Count 293 K/mm3 (150-450) 09/17/23 11:17 CHEMISTRY Potassium 3.9 mmol/L (3.5-5.1) 09/17/23 11:17 Sodium 136 mmol/L (136-145) 09/17/23 11:17 Magnesium 2.0 mg/dL (1.6-2.6) 10/01/23 08:15 BUN 8 mg/dL (7-18) 09/17/23 11:17 Creatinine 0.83 mg/dL (0.55-1.02) 09/17/23 11:17 Glucose 91 mg/dL (74-106) 09/17/23 11:17 TSH 1.15 uIU/mL (0.358-3.74) 09/17/23 11:17 COAG HCG, Quant 7817 mIU/mL (1-3) H 09/10/20 08:39 Assessment & Plan Anesthesia* Anesthesia Assessment Anesthesia Assessment: Discussed sedation and/or anesthesia options, risks, benefits, and alternatives with patient/parents/legal guardian. Questions invited. The patient/parents/legal guardian/POA seems to understand and agrees to proceed with anesthesia plan. Reviewed the physical assessment, medical history, allergy history and patient home medications list prior to surgery/procedure/anesthetic and documented any changes. Performed airway and anesthesia risk assessments. Review of Systems (Anesthesia) ROS Narrative System reviewed and no additional complaints, except as documented. COUNT INCLUDES THE [facility] Medical History (Updated 10/02/23 @ 07:[address] Jess Alas MD) History of echocardiogram Wears glasses Anemia Syncope History of IBS Gastric reflux Smoker History of edema Hypertension Vaginal delivery Depression Gestational hypertension Fall Hand laceration Lung nodule Anxiety Home Medications ?Medication ?Instructions ?Recorded ?Last Taken ?Type bupropion HCl 300 mg 24 hr tablet, 300 mg PO QAM depression 01/21/20 09/30/23 History extended release (Wellbutrin XL) multivitamin (Daily Multi-Vitamin 1 tab PO DAILY 08/21/23 09/30/23 History tablet) sertraline 100 mg tablet 100 mg PO DAILY 08/21/23 09/30/23 History spironolactone 25 mg tablet 25 mg PO DAILY 08/21/23 09/30/23 History colostrum, bovine 400 mg 180 mg PO DAILY 09/28/23 09/30/23 History capsule,delayed release (Colostrum Prime Life) dicyclomine 10 mg capsule 10 mg PO BID PRN abdominal pain 09/28/23 09/30/23 History fexofenadine 180 mg tablet 180 mg PO DAILY 09/28/23 09/30/23 History (Meri Allergy) naproxen 500 mg tablet 500 mg PO BID PRN PRN Pain #30 tabs 10/02/23 Unknown Rx oxycodone-acetaminophen 5 mg-325 1 tab PO Q6H PRN pain 7 days #20 10/02/23 Unknown Rx mg tablet (Percocet) tabs Allergy/AdvReac Type Severity Reaction Status Date / Time loperamide (From Imodium A-D) Allergy Severe Anaphylaxis Verified 10/02/23 06:08 Family History Father Diabetes TBI (traumatic brain injury) Mother Diabetes Hypothyroid Surgical History (Updated 10/02/23 @ 07:[address] Jess Alas MD) S/P vaginal hysterectomy No pertinent past surgical history Social History (Updated 09/25/23 @ 15:34 by Gabriella Jaime) household members: spouse and children number of children: 2 current occupational exposures/hazards: No Smoking Status: Current every day smoker tobacco type: cigarettes Tobacco: How many years used: 11 alcohol intake: never substance use type: does not use seatbelt use: always do you feel safe at home: Yes
[2023-10-02] MEDS: Vasopressin 20 UNITS/ML Vial (08:18)
[2023-10-02] MEDS: Ketorolac 30 MG/ML Syringe IV (11:57)
[2023-10-02 13:04] LABS: Hematocrit 39.2 % (37-47); Hemoglobin 12.9 g/dL (12.0-15.0); Mean Corp Hgb Conc 32.9 g/dL (32-36); Mean Corpuscular Hgb 29.1 pg (27.0-32.0); Mean Corpuscular Volume 88.3 fL (81-99); Mean Platelet Vol. 11.2 fl (6.2-12.0); POSITIVE DIFFERENTIAL YES; Platelet Count 265 K/mm3 (150-450); RBC Distribution Width CV 12.5 % (11.6-14.6); RBC Distribution Width SD 40.6 fl (35.1-43.9); Red Blood Count 4.44 M/mm3 (4.2-5.4); Scan Indicated on CBC? Y/N NO; White Blood Count 10.1 K/mm3 (4.4-11.0)
[2023-10-02] MEDS: Ondansetron ODT 4 MG Tablet PO (14:05)
== END 2023-10-02 14:48 | disposition home or self-care (01) ==
LOC: SDC 05:11 → AC 05:13
PROVIDERS: Anesthesiology; PCP Family Medicine; Referring Provider Obstetrics & Gynecology; Visit Provider Obstetrics & Gynecology
PROC: (CPT 58260; principal; 2023-10-02 07:15)
DX: N72 Inflammatory disease of cervix uteri (principal); N93.9 Abnormal uterine and vaginal bleeding, unspecified; N92.6 Irregular menstruation, unspecified; E28.2 Polycystic ovarian syndrome; F17.210 Nicotine dependence, cigarettes, uncomplicated; K21.9 Gastro-esophageal reflux disease without esophagitis; F41.9 Anxiety disorder, unspecified; Z79.899 Other long term (current) drug therapy
CPT/HCPCS: 58262; 00944; 81025; 82962; 83735; 85027; 86850; 86900; 86901; 88307; 93005; J7120; J2405; J3475

== ENCOUNTER → 2023-10-17 | Outpatient (CLI) | payer OTHER, SELFPAY | END | disposition home or self-care (01) | LOC: LABSPEC 11:51 | PROVIDERS: PCP Family Medicine; Referring Provider Nurse Practitioner Women's Health; Visit Provider Nurse Practitioner Women's Health | DX: R30.0 Dysuria (principal) | CPT/HCPCS: 87086; 87088 ==

== ENCOUNTER 2024-03-16 03:20 | Emergency (ER) | payer OTHER, SELFPAY ==
[2024-03-16 03:21] VITALS: BP 144/105; PULSE 85; RESP 17; TEMP 36.3; O2SAT 100; BMI 41.8
[2024-03-16 03:54] LABS: Bedside Glucose 114 mg/dL (74-106)
--- NOTE | 2024-03-16 04:07 | EKG12_ITS ---
Test Reason : SYNCOPE Blood Pressure : */* mmHG Vent. Rate : 76 BPM Atrial Rate : 76 BPM P-R Int : 188 ms QRS Dur : 90 ms QT Int : 398 ms P-R-T Axes : 26 48 20 degrees QTcB Int : 447 ms Normal sinus rhythm Normal ECG Confirmed by NAILA MONSALVE, GERARD ([id number]), editorial manager JOSEPH GILL ([id number]) on 03/17/2024 9:40:04 AM Referred By: Confirmed By: GERARD YOO MD
[2024-03-16] MEDS: 0.9% Normal Saline (1000mL) 1,000 ML 999 ML IV (04:33)
[2024-03-16] MEDS: Ondansetron 4 MG/2 ML Vial IV (04:33)
[2024-03-16 04:34] VITALS: BP 135/96; PULSE 79; RESP 29; O2SAT 98
[2024-03-16 04:41] LABS: Absolute Lymphocyte Count 1.11 X10^3/uL (0.83-4.51); Absolute Neutrophil Count 5.9 X10^3/uL (2.0-7.7); Basophil# 0.03 X10^3/uL; Basophil% 0.4 % (0-1); Eosinophil# 0.24 X10^3/uL; Eosinophils% 3.1 % (0-5); Hematocrit 38.5 % (37-47); Lymphocyte # 1.11 X10^3/ul (0.83-4.51); Lymphocyte % 14.5 % (19-41); Mean Corp Hgb Conc 33.8 g/dL (32-36); Mean Corpuscular Hgb 29.4 pg (27.0-32.0); Mean Corpuscular Volume 87.1 fL (81-99); Mean Platelet Vol. 11.3 fl (6.2-12.0); Monocyte# 0.37 X10^3/uL; Monocyte% 4.8 % (0-10); NRBC Flagged by Analyzer 0 % (0-5); Neutrophil # 5.86 X10^3/uL (2.7-7.7); Neutrophil % 76.8 % (47-70); Platelet Count 284 K/mm3 (150-450); RBC Distribution Width CV 12.2 % (11.6-14.6); RBC Distribution Width SD 39.1 fl (35.1-43.9); Red Blood Count 4.42 M/mm3 (4.2-5.4); White Blood Count 7.6 K/mm3 (4.4-11.0)
[2024-03-16 05:00] VITALS: BP 130/94; PULSE 70; RESP 19; O2SAT 98
[2024-03-16 05:57] LABS: Anion Gap 6 (5-15); BUN 13 mg/dL (7-18); BUN/Creat Ratio 13.9 RATIO (10-20); Chloride 105 mmol/L (98-107); Creatinine, Serum 0.93 mg/dL (0.55-1.02); EST Glomerular Filtration Rate 73 mL/min (>60); Est Glom Filt Rate - Afr Amer 89 mL/min (>60); Estimated Creatinine Clearance 119.94 ml/min; Glucose 112 mg/dL (74-106); Magnesium 1.9 mg/dL (1.6-2.6); Potassium 3.6 mmol/L (3.5-5.1); Sodium Level 136 mmol/L (136-145)
[2024-03-16 06:00] VITALS: BP 134/82; PULSE 65; RESP 18; O2SAT 98
[2024-03-16 06:30] VITALS: BP 123/60; PULSE 71; RESP 18; TEMP 36.7; O2SAT 98
--- NOTE | 2024-03-16 06:30 | EDS_ITS ---
HPI History of Present Illness Chief Complaint: Syncope Informant: patient and friend Narrative Narrative: Patient is a 33-year-old female with past medical history of of hypertension anxiety and depression. She states this evening she was hanging out with her fr iend and she states that she took a few hits of marijuana. She states roughly 45 minutes to an hour later she began to feel not right. She states that she felt lightheaded and dizzy and like she was going to pass out and reports that she believes she did for a slight few seconds. She states the symptoms have persisted over the last few hours and secondary to this comes in for evaluation. She does states she has felt palpitations associated with this but denies any history of abnormal cardiac rhythm. She also states that she does not do any other illicit drugs and has low concern that the marijuana was contaminated/laced [facility] Medical History History of echocardiogram Wears glasses Anemia Syncope History of IBS Gastric reflux Smoker History of edema Hypertension Vaginal delivery Depression Gestational hypertension Fall Hand laceration Lung nodule Anxiety Home Medications ?Medication ?Instructions ?Recorded ?Last Taken ?Type bupropion HCl 300 mg 24 hr tablet, 300 mg PO QAM depression 01/21/20 09/30/23 History extended release (Wellbutrin XL) sertraline 100 mg tablet 100 mg PO DAILY 08/21/23 09/30/23 History spironolactone 25 mg tablet 25 mg PO DAILY 08/21/23 09/30/23 History fexofenadine 180 mg tablet 180 mg PO DAILY 09/28/23 09/30/23 History (Meri Allergy) ondansetron 4 mg disintegrating 4 mg PO TID PRN nausea and 03/16/24 Unknown Rx tablet vomiting #21 tabs Allergy/AdvReac Type Severity Reaction Status Date / Time loperamide (From Imodium A-D) Allergy Severe Anaphylaxis Verified 03/16/24 03:21 Family History Father Diabetes TBI (traumatic brain injury) Mother Diabetes Hypothyroid Surgical History S/P vaginal hysterectomy No pertinent past surgical history Social History household members: spouse and children number of children: 2 current occupational exposures/hazards: No Smoking Status: Current every day smoker tobacco type: cigarettes Tobacco: How many years used: 11 alcohol intake: never substance use type: does not use seatbelt use: always do you feel safe at home: Yes ROS ROS ED Constitutional Constitutional ED: Denies chills or fever(s) Eyes Eyes: Denies change in vision ENT ENT ED: Denies sore throat Cardiovascular Cardiovascular: Reports palpitations and other Details: Positive dizziness/lightheadedness/syncope ; Denies chest pain Respiratory/Chest Respiratory/Chest: Denies cough or dyspnea Gastrointestinal Gastrointestinal: Reports nausea; Denies abdominal pain, diarrhea or vomiting Genitourinary Genitourinary ED: Denies dysuria, hematuria or urinary frequency Musculoskeletal Musculoskeletal: Denies myalgias Integumentary Denies rash Neurologic Neurologic: Denies headache(s) or paresthesias Hematologic/Lymphatic Hematologic/Lymphatic: Denies easy bleeding or easy bruising EXAM Physical Exam Const Vital Signs: 03/16/24 06:30 Temperature 98.0 F Pulse Rate 71 Respiratory Rate 18 Blood Pressure 123/60 H Blood Pressure Mean 81 Pulse Ox 98 Positive well nourished, well developed and obese General Appearance ED: well developed; Negative for pallor Nutritional Appearance: obese HEENT HEENT Narrative: Normocephalic atraumatic No tongue or cheek biting noted Eyes PERRL and EOMs intact bilaterally General Eye ED: Negative for pale conjunctiva or scleral icterus Neck supple Neck Narrative: No nuchal rigidity or meningeal signs Chest Wall palpation of chest normal Resp normal respiratory effort and clear to auscultation bilaterally Cardio regular rate and regular rhythm Rate: other Other Details: Heart is regular rate and rhythm with occasional ectopic beat noted No murmurs rubs or gallops Radial and carotid pulses are equal and symmetric GI non-tender, non-distended and no masses GI Narrative: Abdomen is soft nontender nondistended with hyperactive bowel sounds. No voluntary guarding or rigidity or pulsatile mass Auscultation: hyperactive bowel sounds Palpation: soft Extremity normal to inspection Extremity Narrative: No asymmetric edema no pitting edema negative Homans' sign bilaterally Neuro oriented x3, CN's II-XII intact bilaterally and no sensory deficits noted Neuro Narrative: GCS of 15 Cranial nerves II through XII are grossly intact without focal neurologic deficit No pronator drift no dysmetria no truncal ataxia NIH stroke scale score of 0 Sensorium / Orientation: alert Motor Exam: strength 5/5 throughout Psych mental status grossly normal Skin no rashes or lesions noted General Skin Exam: Negative for jaundice or pallor MDM MDM MDM Narrative Medical decision making narrative: Patient arrived to the ER hypertensive but otherwise with stable vitals. She reported lightheadedness/near syncope with palpitations. During the physical exam I did note a brief episode of frequent PVCs appearing in a bigeminy pattern. In order to ensure that this was not related to acute kidney injury electrolyte abnormality thyroid disorder or acute blood loss anemia a basic workup was obtained. Labs revealed a normal H&H normal kidney function no significant electrolyte abnormality either. Patient was kept on the monitor and there was no true cardiac dysrhythmia or recurrent runs of PVCs noted. After receiving Zofran and IV hydration she reported feeling better. She was able to ambulate with a steady gait. Therefore at this time as EKG does not show ischemic changes she does not have a cardiac dysrhythmia present and there is no findings such as ALIYAH acute loss anemia or significant hypokalemia or hypomagnesemia she is otherwise safe for discharge. History & Record Review Discussion w/independent historian: Patient and Friend Lab Data Attestation: I reviewed the patient's lab results. Labs: Laboratory Results - last 24 hr 03/16/24 03/16/24 03:35 04:33 WBC 7.6 RBC 4.42 Hgb 13.0 Hct 38.5 MCV 87.1 MCH 29.4 MCHC 33.8 RDW Std Deviation 39.1 RDW Coeff of Teofilo 12.2 Plt Count 284 MPV 11.3 Immature Gran % (Auto) 0.400 Neut % (Auto) 76.8 H Lymph % (Auto) 14.5 L [place] % (Auto) 4.8 Eos % (Auto) 3.1 Baso % (Auto) 0.4 Absolute Neuts (auto) 5.9 Absolute Lymphs (auto) 1.11 Nucleated RBC % 0 Sodium 136 Potassium 3.6 Chloride 105 Carbon Dioxide 25.0 Anion Gap 6 BUN 13 Creatinine 0.93 Estim Creat Clear Calc 119.94 Est GFR (MDRD) Af Amer 89 Est GFR (MDRD) Non-Af 73 BUN/Creatinine Ratio 13.9 Glucose 112 H Calcium 9.0 Magnesium 1.9 TSH 2.710 POC Glucose 114 H Discharge Plan Triage Chief Complaint: Syncope ED Provider: Nader Bates Dx/Rx/DC Orders Clinical Impression: Syncope, PVC's (premature ventricular contractions), Hypertension Instructions: Causes of Syncope, PVCs Prescriptions: New ondansetron 4 mg tablet,disintegrating 4 mg PO TID PRN (Reason: nausea and vomiting) Qty: 21 0RF No Action bupropion HCl [Wellbutrin XL] 300 mg tablet extended release 24 hr 300 mg PO QAM spironolactone 25 mg tablet 25 mg PO DAILY sertraline 100 mg tablet 100 mg PO DAILY fexofenadine [Meri Allergy] 180 mg tablet 180 mg PO DAILY Primary Care Provider: Kenny Butler Referrals: Kenny Butler MD [Primary Care Provider] - Activity Restrictions/Additional Instructions: Please talk to your family doctor about a potential Holter monitor in order to ensure that you are not developing or going into/out of an abnormal cardiac rhythm. Keep yourself well-hydrated continue all of your home medications as previously directed and return to the ER should you have any further concerns Print Language: [place] Disposition Disposition: Home, Self Care Discharge Date/Time: 03/16/24 06:40
[2024-03-16] MEDS: Ondansetron ODT 4 MG Tablet PO (06:39)
== END 2024-03-16 06:40 | disposition home or self-care (01) ==
PROVIDERS: Emergency Provider Emergency Medicine; PCP Family Medicine; Visit Provider Emergency Medicine
DX: R55 Syncope and collapse (principal); F17.210 Nicotine dependence, cigarettes, uncomplicated; I10 Essential (primary) hypertension; F32.A Depression, unspecified; F41.9 Anxiety disorder, unspecified; Z79.899 Other long term (current) drug therapy; Z90.710 Acquired absence of both cervix and uterus; I49.3 Ventricular premature depolarization
CPT/HCPCS: 80048; 82962; 83735; 84443; 85025; 93005; 96361; 96374; 99283; J7030; A4216; J2405

== ENCOUNTER → 2024-06-04 | Outpatient (CLI) | payer OTHER, SELFPAY ==
[2024-06-04 12:38] LABS: Erythrocyte Sedimentation Rate 20 mm/hr (0-30)
[2024-06-04 12:41] LABS: Absolute Neutrophil Count 4.4 X10^3/uL (2.0-7.7); Basophil# 0.03 X10^3/uL; Basophil% 0.4 % (0-1); Eosinophil# 0.39 X10^3/uL; Eosinophils% 5.8 % (0-5); Hematocrit 41.6 % (37-47); Hemoglobin 13.5 g/dL (12.0-15.0); Lymphocyte % 23.6 % (19-41); Mean Corp Hgb Conc 32.5 g/dL (32-36); Mean Corpuscular Hgb 29.1 pg (27.0-32.0); Mean Corpuscular Volume 89.7 fL (81-99); Mean Platelet Vol. 11.7 fl (6.2-12.0); Monocyte# 0.34 X10^3/uL; NRBC Flagged by Analyzer 0 % (0-5); Neutrophil # 4.38 X10^3/uL (2.7-7.7); Neutrophil % 64.8 % (47-70); Platelet Count 296 K/mm3 (150-450); RBC Distribution Width CV 12.3 % (11.6-14.6); RBC Distribution Width SD 40.3 fl (35.1-43.9); Red Blood Count 4.64 M/mm3 (4.2-5.4); White Blood Count 6.8 K/mm3 (4.4-11.0)
[2024-06-04 13:17] LABS: Anion Gap 9 (5-15); BUN 11 mg/dL (7-18); BUN/Creat Ratio 11.6 RATIO (10-20); Calcium,Total 9.2 mg/dL (8.5-10.1); Chloride 106 mmol/L (98-107); Creatinine, Serum 0.95 mg/dL (0.55-1.02); EST Glomerular Filtration Rate 72 mL/min (>60); Est Glom Filt Rate - Afr Amer 87 mL/min (>60); Glucose 112 mg/dL (74-106); Sodium Level 137 mmol/L (136-145)
[2024-06-05 12:08] LABS: ANTINUCLEAR ANTIBODIES DIRECT Negative (Negative); Anti-dsDNA Ab <1 IU/mL (0-9)
== END | disposition home or self-care (01) ==
LOC: MFPLAB 09:37
PROVIDERS: PCP Family Medicine; Referring Provider Family Medicine; Visit Provider Family Medicine
DX: R21 Rash and other nonspecific skin eruption (principal); R55 Syncope and collapse
CPT/HCPCS: 36415; 80048; 85025; 85652; 86038; 86225

== ENCOUNTER → 2024-08-04 | Outpatient (CLI) | payer OTHER, SELFPAY | END | disposition home or self-care (01) | PROVIDERS: PCP Family Medicine; Visit Provider Nurse Practitioner Women's Health | DX: N94.89 Other specified conditions associated with female genital organs and menstrual cycle (principal) | CPT/HCPCS: 87070; 87205 ==

== ENCOUNTER → 2024-11-20 | Outpatient (CLI) | payer OTHER, SELFPAY ==
[2024-11-20 15:58] LABS: Anion Gap 14 (5-15); BUN 11 mg/dL (4-19); BUN/Creat Ratio 13.0 RATIO (10-20); Calcium,Total 9.5 mg/dL (7.6-11.0); Carbon Dioxide 24.4 mmol/L (21.0-32.0); Chloride 99 mmol/L (98-108); Glucose 97 mg/dL (70-99); Potassium 3.6 mmol/L (3.3-5.1)
--- OUTSIDE RECORDS SUMMARY | 2024-11-20 21:48 | XMS RPT_ITS | CCD ---
Author Organization [facility] Care Team Providers Care School Bus Driver/Custodian Name Role Phone Dr. Kenny Butler Primary Care Provider Dr. Kenny Btuler Referring Provider WOODY Patricio Attending Provider [phone] Luke MONSALVE, Dr. Cox Primary Care Provider [phone] Luke MONSALVE, Dr. Cox Attending Provider [phone] Luke MONSALVE, Dr. Cox Referring Provider Katie Hebert Attending Provider Dr. Kenny Butler MD Primary Care Provider [phone] Luke MONSALVE, Dr. Cox Referring Provider [phone] Bonita Mata Attending Provider Kenny Butler Referring Unavailable Bonita Patricio Attending Unavailable Kenny Butler Primary Care Unavailable Kenny Butler Referring Unavailable Kenny Butler Primary Care Unavailable Andrey SHREDDED FILLER CUTTER OPERATORKatie Attending Unavailable Andrey SHREDDED FILLER CUTTER OPERATORKatie Attending Unavailable Kenny Butler Primary Care Unavailable Kenny Butler Attending Unavailable Kenny Butler Primary Care Unavailable Kenny Butler Referring Unavailable Kenny Butler Primary Care Unavailable Nader Bates Attending Unavailable Bonita Patricio Referring Unavailable Bonita Patricio Attending Unavailable Kenny Butler Primary Care Unavailable Allergies Allergy Classification Reported Allergen(s) Allergy Type Date of Onset Reaction(s) Facility (7 sources) Loperamide Drug Allergy 02-14-2022 Anaphylaxis [facility] (1 source) Loperamide Drug Allergy 10-22-2024 [facility] Repository Medications Current Medications Medication Drug Class(es) Dates Sig (Normalized) Sig (Original) 24 hr buPROPion hydrochloride 300 mg extended release oral tablet (16 sources) Aminoketone Start: 01-21-2020 take 1 tablet by mouth once daily in the morning Bupropion Hcl (Wellbutrin Xl) 300 mg tablet extended release 24 hr Active 300 mg PO EVERY MORNING January 21, 2020 12:00am Start: 10-15-2019 End: 01-21-2020 Bupropion Hcl (Bupropion Hcl Sr) 150 MG Tab.Sr.12h Discontinued 150 mg PO October 15, 2019 12:00am January 21, 2020 12:39pm dicyclomine hydrochloride 10 mg oral tablet (3 sources) Anticholinergic Start: 10-22-2024 take 1 capsule by mouth twice daily as needed Dicyclomine 10 mg capsule Active 10 mg PO TWICE A DAY as needed October 22, 2024 12:00am Start: 09-28-2023 End: 03-16-2024 take 1 capsule by mouth twice daily as needed for pain Dicyclomine 10 mg capsule Discontinued 10 mg PO TWICE A DAY as needed for abdominal pain September 28, 2023 12:00am March 16, 2024 4:26am estradiol 0.1 mg/ml vaginal cream (2 sources) Estrogen Start: 08-06-2024 Estradiol 0.01 % (0.1 mg/gram) cream Active 0 VAGINAL .COMPLEX 42.5 August 06, 2024 12:00am small amount(.25gm) as directed vaginal every other day X 4 weeks then twice a week; fexofenadine hydrochloride 180 mg oral tablet (2 sources) Histamine-1 Receptor Antagonist Start: 09-28-2023 take 1 tablet by mouth once daily Fexofenadine (Meri Allergy) 180 mg tablet Active 180 mg PO DAILY September 28, 2023 12:00am ondansetron 4 mg disintegrating oral tablet (2 sources) Serotonin-3 Receptor Antagonist Start: 03-16-2024 take 1 tablet by mouth three times daily as needed for nausea and vomiting Ondansetron 4 mg tablet,disintegrati ng Active 4 mg PO THREE TIMES A DAY as needed for nausea and vomiting March 16, 2024 7:37am Vit,Nqsb84-Frvw-Dbiv c (6 sources) Start: 08-24-2014 take 1 tablet by mouth once daily Vit,Cqsb23-Gkzg-Ety ic Active 1 TABLET PO DAILY August 24, 2014 6:14pm Start: 08-24-2014 End: 08-21-2023 take 1 tablet by mouth once daily Vit,Biae57-Bgxp-Xctjx Discontinued 1 TABLET PO DAILY August 24, 2014 12:00am August 21, 2023 2:22pm Start: 08-24-2014 take 1 tablet by janice th once daily Vit,Uoju25-Rcnz-Odfpg Active 1 TABLET PO DAILY August 23, 2014 11:00pm sertraline 100 mg oral tablet (12 sources) Serotonin Reuptake Inhibitor Start: 08-21-2023 take 1 tablet by mouth once daily Sertraline 100 mg tablet Active 100 mg PO DAILY August 21, 2023 12:00am Start: 02-12-2021 End: 08-21-2023 take 1 tablet by mouth once daily Sertraline (Zoloft) 25 mg Tablet Discontinued 25 mg PO DAILY February 12, 2021 12:00am August 21, 2023 2:21pm spironolactone 25 mg oral tablet (4 sources) Aldosterone Antagonist Start: 08-21-2023 take 1 tablet by mouth once daily Spironolactone 25 mg tablet Active 25 mg PO DAILY August 21, 2023 12:00am Completed/Discontinued Medications Medication Drug Class(es) Dates Sig (Normalized) Sig (Original) acetaminophen 325 mg / oxyCODONE hydrochloride 5 mg oral tablet (2 sources) Opioid Agonist Start: 10-02-2023 End: 11-20-2023 Oxycodone-Acetamino phen (Percocet) 5-325 mg tablet Discontinued 1 {tbl} PO EVERY 6 HOURS as needed for pain 16 11October 02, 2023 November 20, 2023 2:49pm Colostrum, Bovine (Colostrum Prime Life) 400 mg capsule,delayed release(DR/EC) (2 sources) Start: 09-28-2023 End: 03-16-2024 take 1 capsule by mouth once daily Colostrum, Bovine (Colostrum Prime Life) 400 mg capsule,delayed release(DR/EC) Discontinued 180 mg PO DAILY September 28, 2023 12:00am March 16, 2024 4:25am Multivitamin (Daily Multi-Vitamin) tablet (4 sources) Start: 08-21-2023 End: 03-16-2024 Multivitamin (Daily Multi-Vitamin) tablet Discontinued 1 {tbl} PO DAILY August 21, 2023 12:00am March 16, 2024 4:26am Start: 08-21-2023 take 1 tablet by janice th once daily Multivitamin (Daily Multi-Vitamin) tablet Active 1 TABLET PO DAILY August 21, 2023 12:00am naproxen 500 mg oral tablet (2 sources) Nonsteroidal Anti-inflammatory Drug Start: 10-02-2023 End: 11-20-2023 take 1 tablet by mouth twice daily as needed for pain Naproxen 500 mg tablet Discontinued 500 mg PO TWICE DAILY NEEDED as needed for Pain October 02, 2023 12:00am November 20, 2023 2:49pm norethindrone acetate 5 mg oral tablet (8 sources) Start: 10-15-2019 End: 01-21-2020 take 2 tablets by mouth every two hours Norethindrone Acetate 5 MG tablet Discontinued 10 mg PO Q2H October 15, 2019 12:00am January 21, 2020 12:38pm Start: 10-15-2019 End: 01-21-2020 take 10 mg by mouth every two hours Norethindrone Acetate Discontinued 10 MG PO Q2H October 15, 2019 12:00am January 21, 2020 12:38pm Vit,Cosp78-Isiv-Iiayh 1 TABLET tablet (2 sources) Start: 08-24-2014 End: 08-21-2023 take 1 tablet by mouth once daily Vit,Nlzp46-Nago-Zxldv 1 TABLET tablet Discontinued 1 {tbl} PO DAILY August 24, 2014 12:00am August 21, 2023 2:22pm Problems Active Problems Problem Classification Problem Date Documented Da te Episodic/Chronic Anxiety disorders (8 sources) Anxiety; Translations: [Anxiety disorder, unspecified] 01-21-2020 Chronic Cardiac dysrhythmias (2 sources) Multiple premature ventricular complexes; Translations: [Ventricular premature depolarization] 03-24-2024 Chronic E Codes: Fall (8 sources) Fall; Translations: [Unspecified fall, initial encounter] 04-06-2021 Episodic Essential hypertension (2 sources) Hypertensive disorder; Translations: [Essential (primary) hypertension] 03-24-2024 Chronic Malaise and fatigue (8 sources) Fatigue; Translations: [Other fatigue] 10-16-2019 Episodic Open wounds of extremities (8 sources) Laceration of hand; Translations: [Laceration without foreign body of unspecified hand, initial encounter] 09-29-2020 Episodic Other endocrine disorders (2 sources) Polycystic ovarian syndrome; Translations: [Polycystic ovaries] 08-21-2023 Chronic Other endocrine disorders (2 sources) Polycystic ovary syndrome; Translations: [Polycystic ovarian syndrome] 09-25-2023 Chronic Comment on above: nl US. emb done. nl cbc and tsh. didn't tolerate hormonal treatments- ocp, iud, depo provera, and nuvaring in past. smoker. offered lysteda and reviewed surgical options. plan TVHBS possible LAVH Other female genital disorders (2 sources) Abnormal uterine and vaginal bleeding, unspecified; Translations: [Unspecified disorders of menstruation and other abnormal bleeding from female genital tract] 08-21-2023 Chronic Other female genital disorders (2 sources) Abnormal uterine bleeding; Translations: [Abnormal uterine and vaginal bleeding, unspecified] 10-02-2023 Chronic Comment on above: due to PCOS, failed hormonal management, smoker, proceed with TVHBS possible LAVHBS Other female genital disorders (4 sources) Burning sensation of vagina; Translations: [Other specified conditions associated with female genital organs and menstrual cycle] 08-04-2024 Episodic Other lower respiratory disease (8 sources) Dyspnea; Translations: [Dyspnea, unspecified] 01-23-2020 Episodic Other lower respiratory disease (8 sources) Nodule of lung; Translations: [Solitary pulmonary nodule] 01-21-2020 Episodic Other and delivery including normal (8 sources) ; Translations: [Encounter for supervision of normal , unspecified, unspecified trimester] 04-06-2021 Episodic Residual codes; unclassified (8 sources) Hypersomnia; Translations: [Hypersomnia, unspecified] 01-23-2020 Chronic Residual codes; unclassified (8 sources) History finding; Translations: [Other specified health status] 04-14-2021 Episodic Residual codes; unclassified (8 sources) Tobacco user; Translations: [Tobacco use] 01-23-2020 Episodic Comment on above: 1/2 ppd for 10 years Residual codes; unclassified (2 sources) History of vaginal hysterectomy; Translations: [Acquired absence of both cervix and uterus] 10-02-2023 Episodic Comment on above: TVHBS SM AUB PCOS Unclassified (2 sources) Stress incontinence in female; Translations: [N39.3 - Stress incontinence (female) (male)] Past or Other Problems Problem Classification Problem Date Documented Da te Episodic/Chronic Other female genital disorders (1 source) Other specified conditions associated with female genital organs and menstrual cycle; Translations: [Other specified conditions associated with female genital organs and menstrual cycle] Onset: 08-07-2024 Episodic Other skin disorders (1 source) Rash and other nonspecific skin eruption; Translations: [Rash and other nonspecific skin eruption] Onset: 06-19-2024 Episodic Syncope (3 sources) Syncope; Translations: [Syncope and collapse] Onset: 04-16-2024 03-24-2024 Episodic Results Test Name Value Interpretation Reference Range Facility Clinical Laboratory Technician Office Visit Reporton 10-22-2024 Clinical Laboratory Technician Office Visit Report [facility] [address], [address] [place] [address] OFFICE VISIT Date of Service: 10/22/24 MR#: [id number] Acct: [id number] Name: LUZ MARINA SCHMIDT Rep #: [id number] : 1990 Provider: WOODY Hagen Age/Sex: 34/F Location: [facility] [place] Status: Signed Intake Vital Signs 03/16/24 03:21 08/04/24 12:49 08/04/24 13:12 10/22/24 08:23 Height 5 ft 8 in 5 ft 8 in 5 ft 8 in 5 ft 8 in Weight: 280 lb 2 oz BMI 42.5 BP 136/84 H Intake Visit Reasons: 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) Chief Complaint: Annual Systems Applications Programming Lead Required: No Is patient in pain?: No Allergies loperamide (From Imodium A-D) Allergy (Severe, Verified 10/22/24 08:18) Anaphylaxis Medications ???Medication ???Instructions ???Recorded ???Confirmed ???Type bupropion HCl 300 mg 24 hr tablet, 300 mg PO QAM depression 0 10/22/24 History extended release (Wellbutrin XL) sertraline 100 mg tablet 100 mg PO DAILY 08/21/23 10/22/24 History spironolactone 25 mg tablet 25 mg PO DAILY 08/21/23 10/22/24 H istory fexofenadine 180 mg tablet 180 mg PO DAILY 09/28/23 10/22/24 History (Meri Allergy) ondansetron 4 mg disintegrating 4 mg PO TID PRN nausea and 4 10/22/24 Rx tablet vomiting #21 tabs estradiol 0.01% (0.1 mg/gram) See Rx Instructions vaginal 10/22/24 Rx vaginal cream .COMPLEX #42.5 grams dicyclomine 10 mg capsule 10 mg PO BID PRN 10/22/24 10/22/24 History Is last menstrual period known: No Post menopausal: No Patient : No : No Control Method: [facility] Medical History History of echocardiogram Wears glasses Anemia Syncope History of IBS Gastric reflux Smoker History of edema Hypertension Vaginal delivery Depression Gestational hypertension Fall Hand laceration Lung nodule Anxiety Surgical History S/P vaginal hysterectomy No pertinent past surgical history Family History (Updated 10/22/24 @ 08:40 by WOODY Johansen) Father Diabetes TBI (traumatic brain injury) Mother Diabetes Hypothyroid Ovarian cancer Sister Vasovagal syncopes Aunt Breast cancer Ovarian cancer Grandmother Ovarian cancer Social History (Updated 10/22/24 @ 08:28 by Judy Herbert) household members: spouse and children number of children: 2 current occupational exposures/hazards: No Smoking Status: Current every day smoker tobacco type: cigarettes Tobacco: How many years used: 11 alcohol intake: never substance use type: does not use seatbelt use: always do you feel safe at home: Yes additional social history: Sonido History 2 Elective abortions Hx Para 2 Spontaneous abortions Hx # Term Pregnancies Ectopic pregnancies Hx # Pregnancies Multiple births # of living children Past Pregnancies Del. Date Name GA/Weeks Outcome Route Bth Weight Infant Gen Labor Lgth Anesthesia Del Locatn Provider FOB Unknown Lee Unknown Taylor HPI Encounter for routine gynecological examination Details: LUZ MARINA SCHMIDT is a 34 year old who presents for annual exam. She reports stress incontinence. Leaking with cough and sneezing. Has persisted through having hysterectomy. She reports she continues to occasional vaginal burning as well. She has been using estradiol cream; this has helped but it continues to return when not using. Last PAP: Hyst History of abnormal PAP: hyst Last mammogram: Due at 40 History of abnormal mammogram: none Colon cancer screening: Due at 45 Other preventative health care screenings: PCP-Dr. Butler. Female Reproductive History Questions: sexually active: Yes (hyst) ROS Const Constitutional: Denies chills, fatigue, fever(s), headache(s) or weight loss Eyes Eyes: Denies change in vision ENT ENT: Denies dizziness Resp Resp: Denies cough GI GI: Denies abdominal pain, constipation or nausea : Denies difficulty voiding, dysuria, hematuria, nipple discharge, pelvic pain, prolapse symptoms, urinary incontinence, vaginal discharge, vaginal dryness, vaginal odor or vaginal pruritus Skin Skin/Breast: Denies alopecia, rash, breast mass, breast pain, breast skin changes or nipple discharge Neuro Neuro: Denies dizziness Psych Psych: Denies anxiety or depression Endo Endo: Denies cold intolerance, excessive sweating or heat intolerance Exam Const General: cooperative and no acute distress Nutritional Appearance: obese Orientation: oriented x3 HENMT Head: normal to inspection and normocephalic Ears: hearing grossly normal bilaterally and external ears normal Nose: external nose normal Face and sinus: normal facial exam Eye (more content not included)... Normal [facility] Genital Culture Comprehensiv melody 08-07-2024 VAC Reason for Exam: Vag inal burning Normal vaginal pinky isolated. No yeast, Gardnerella, Neisseria or beta-hemolytic Streptococcus isolated. Normal [facility] Comment on above: Performed By: #### M 100.3200, M1.1999 #### [facility] [address] [place], [place], [address] Genital cultureOrdered By: Dio Balderas on 08-04-2024 Source specific culture Neisseria or beta-hemolytic Streptococcus isolated. [facility] Gram Stainon 08-04-2024 GS Reason for Exam: Vag inal burning Gram Stain 1+ Gram positive rods 2+ Gram variable natalee No Gram negative diplococci Rare White Blood Cells Score = 5 Interpretation: 0-3 Normal, 4-6 Intermediate, 7-10 Positive BV Normal [facility] Comment on above: Performed By: #### M 100.3200, M100 #### [facility] [address] [place], [address] Gram stainOrdered By: Katie Balderas on 08-04-2024 Microscopic observation Gram stain Nom (Unsp spec) [facility] No Panel InformationOrdered By: Katie Balderas on 08-04-2024 POC Bacterial Vaginitis (Rapid) Negative [facility] Clinical Laboratory Technician Office Visit Reporton 08-04-2024 Clinical Laboratory Technician Office Visit Report [facility] [address], [address] [place] [address] OFFICE VISIT Date of Service: 08/04/24 MR#: [id number] Acct: [id number] Name: LUZ MARINA SCHMIDT Rep #: [id number] : 1990 Provider: WOODY peralta Age/Sex: 34/F Location: [facility] [place] Status: Signed Intake Vital Signs 08/04/24 12:54 08/04/24 13:12 Height 5 ft 8 in 5 ft 8 in Weight: 282 lb 4 oz BMI 42.9 BP 126/82 H Intake Visit Reasons: vulvar burning, redness Chief Complaint: Vulvar burning and redness Systems Applications Programming Lead Required: No Is patient in pain?: No Allergies loperamide (From Imodium A-D) Allergy (Severe, Verified 08/04/24 13:05) Anaphylaxis Medications ???Medication ???Instructions ???Recorded ???Confirmed ???Type bupropion HCl 300 mg 24 hr tablet, 300 mg PO QAM depression 0 08/04/24 History extended release (Wellbutrin XL) sertraline 100 mg tablet 100 mg PO DAILY 08/21/23 08/04/24 History spironolactone 25 mg tablet 25 mg PO DAILY 08/21/23 08/04/24 H istory fexofenadine 180 mg tablet 180 mg PO DAILY 09/28/23 08/04/24 History (Meri Allergy) ondansetron 4 mg disintegrating 4 mg PO TID PRN nausea and 4 08/04/24 Rx tablet vomiting #21 tabs Is last menstrual period known: No Post menopausal: No Patient : No : No Control Method: Hysterectomy PFSH Medical History History of echocardiogram Wears glasses Anemia Syncope History of IBS Gastric reflux Smoker History of edema Hypertension Vaginal delivery Depression Gestational hypertension Fall Hand laceration Lung nodule Anxiety Surgical History S/P vaginal hysterectomy No pertinent past surgical history Family History Father Diabetes TBI (traumatic brain injury) Mother Diabetes Hypothyroid Social History household members: spouse and children number of children: 2 current occupational exposures/hazards: No Smoking Status: Current every day smoker tobacco type: cigarettes Tobacco: How many years used: 11 alcohol intake: never substance use type: does not use seatbelt use: always do you feel safe at home: Yes HPI vulvar burning, redness Details: LUZ MARINA SCHMIDT is a 34 year old who presents for vaginal burning. Denies discharge. Has had off and on since hysterectomy September 2023. Same sexual partner. History 2 Elective abortions Hx Para 2 Spontaneous abortions Hx # Term Pregnancies Ectopic pregnancies Hx # Pregnancies Multiple births # of living children Past Pregnancies Del. Date Name GA/Weeks Outcome Route Bth Weight Gen Labor Lgth Anesthesia Del Locatn Provider FOB Unknown Lee Unknown Taylor ROS Const Constitutional: Reports system reviewed and no additional complaints, except as documented Eyes Eyes: Reports system reviewed and no additional complaints, except as documented GI GI: Denies abdominal pain or change in bowel habits : Reports as per HPI Exam Const General: cooperative and no acute distress Nutritional Appearance: obese Orientation: oriented x3 External Female Exam: normal external appearance and normal appearance of the urethra Urethra: normal appearance of the urethra Speculum Exam - Vagina: normal appearance of the vagina and normal vaginal discharge Speculum Exam - Cervix: absent Bimanual Exam- Vagina Uterus: uterus absent Bimanual Exam- Adnexa, other: normal adnexae, no masses and non-tender Coding Level of Care Code Off vis,est,level 3 Diagnoses Vaginal burning N94.89 Assessment and Plan Assessment and Plan (1) Vaginal burning: Status: Acute Plan Juvenal BV and comp vaginal culture. Call results If negative, consider trial of estradiol cream as was helpful 3-4 years ago Reviewed WHITE 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 skin care, use of OTC cortaid and coconut oil prn 08/04/24 1325 Date Katie Andrey SHREDDED FILLER CUTTER OPERATOR SHREDDED FILLER CUTTER OPERATOR-C Cosigner Signature: Date (if applicable) CC: Normal [facility] ANTINUCLEAR ANTIBODIES DIREC Ton 06-05-2024 DOE,DIRECT Negative Normal Negative [facility] Comment on above: Result Comment: Perf ormed at: [facility] [address] [id number] [place]le Strap Drum Operator: Nickolas Zavala PhD, Phone: [phone] Performed By: #### L 500.2500, L3100.5475, L3100.5500, L100.0100, L101.9900 ####[facility] [address] [place], [address] Anti-dsDNA Abon 06-05-2024 ANTI-DNA (DS)AB <1 Normal 0-9 [facility] Comment on above: Result Comment: Nega tive <5 Equivocal 5 - 9 Positive >9 AMENDED REPORT 06/05/24 1208 dsDNA AB previously reported as: Test not performed Performed By: #### L 500.2500, L3100.5475, L3100.5500, L100.0100, L101.9900 #### [facility] [address] [place], [address] DOE serumOrdered By: Kenny warren on 06-04-2024 Anti-Nuclear Antibody Screen Negative Negative [facility] Comment on above: Performed at: [facility] [address] [id number] Director: Nickolas Zavala PhD, Phone: [phone] Absolute neutrophil countOrd ered By: Kenny Butler on 06-04-2024 Neutrophils (Bld) [#/Vol] 4.4 10*3/uL 2.0-7.7 [facility] Basic Metabolic Profile (BMP )on 06-04-2024 BUN/CRE 11.6 RATIO Normal 10-20 [facility] Comment on above: Performed By: #### L 500.2500, L3100.5475, L3100.5500, L100.0100, L101.9900 ####[facility] [address] [place], [address] CA,Total 9.2 mg/dL Normal 8.5-10.1 [facility] Comment on above: Performed By: #### L 500.2500, L3100.5475, L3100.5500, L100.0100, L101.9900 ####[facility] [address] [place], [address] Chloride [Moles/Vol] 106 mmol/L Normal 98-107 [facility] Comment on above: Performed By: #### L 500.2500, L3100.5475, L3100.5500, L100.0100, L101.9900 ####[facility] [address] [place], [address] CO2 [Moles/Vol] 21.0 mmol/L Normal 21.0-32.0 [facility] Comment on above: Performed By: #### L 500.2500, L3100.5475, L3100.5500, L100.0100, L101.9900 ####[facility] [address] [place], [address] Creatinine [Mass/Vol] 0.95 mg/dL Normal 0.55-1.02 [facility] Comment on above: Result Comment: The validity of the calculated GFR GFRAA in patients over 70 years has not been determined. Clinical correlation is essential. Performed By: #### L 500.2500, L3100.5475, L3100.5500, L100.0100, L101.9900 ####[facility] [address] [place], [address] EST GFR - AA 87 mL/min Normal >60 [facility] Comment on above: Result Comment: Afri can Nauruan GFR Calc Performed By: #### L 500.2500, L3100.5475, L3100.5500, L100.0100, L101.9900 ####[facility] [address] [place], [address] GAP 9 Normal 5-15 [facility] Comment on above: Performed By: #### L 500.2500, L3100.5475, L3100.5500, L100.0100, L101.9900 ####[facility] [address] [place], [address] GFR/1.73 sq M.predicted among non-blacks MDRD (S/P/Bld) [Vol rate/Area] 72 mL/min/{1.73_m2} Normal >60 [facility] Comment on above: Result Comment: Non- GFR Calc Performed By: #### L 500.2500, L3100.5475, L3100.5500, L100.0100, L101.9900 ####[facility] [address] [place], [address] Glucose [Mass/Vol] 112 mg/dL High 74-106 [facility] Comment on above: Result Comment: Fast ing Glucose result from 100 to 125 mg/dL suggests IMPAIRED HOMEOSTASIS per A.D.A. criteria. Performed By: #### L 500.2500, L3100.5475, L3100.5500, L100.0100, L101.9900 ####[facility] [address] [place], [address] Potassium [Moles/Vol] 4.0 mmol/L Normal 3.5-5.1 [facility] Comment on above: Performed By: #### L 500.2500, L3100.5475, L3100.5500, L100.0100, L101.9900 ####[facility] [address] [place], [address] Sodium [Moles/Vol] 137 mmol/L Normal 136-145 [facility] Comment on above: Performed By: #### L 500.2500, L3100.5475, L3100.5500, L100.0100, L101.9900 ####[facility] [address] [place], [place], [id number] Urea nitrogen [Mass/Vol] 11 mg/dL Normal 7-18 [facility] Comment on above: Performed By: #### L 500.2500, L3100.5475, L3100.5500, L100.0100, L101.9900 ####[facility] [address] [place], [address] Basophil percentageOrdered B y: Kenny Butler on 06-04-2024 Basophils/100 WBC (Bld) 0.4 % 0-1 [facility] Blood urea nitrogen (BUN)/cr eatinine ratioOrdered By: Kenny Butler on 06-04-2024 Urea nitrogen/Creatinine [Mass ratio] 11.6 mg/mg 10-20 [facility] CBC W/Diff, Automatedon Absolute Lymph 1.60 X10 3/uL Normal 0.83-4.51 [facility] Comment on above: Performed By: #### L 500.2500, L3100.5475, L3100.5500, L100.0100, L101.9900 ####[facility] [address] [place], [address] Absolute Neut 4.4 X10 3/uL Normal 2.0-7.7 [facility] Comment on above: Performed By: #### L 500.2500, L3100.5475, L3100.5500, L100.0100, L101.9900 ####[facility] [address] [place], [address] Basophils/100 WBC (Bld) 0.4 % Normal 0-1 [facility] Comment on above: Performed By: #### L 500.2500, L3100.5475, L3100.5500, L100.0100, L101.9900 ####[facility] [address] [place], [address] Eosinophils/100 WBC (Bld) 5.8 % High 0-5 [facility] Comment on above: Performed By: #### L 500.2500, L3100.5475, L3100.5500, L100.0100, L101.9900 ####[facility] [address] [place], [address] Erythrocyte distribution width (RBC) [Ratio] 12.3 % Normal 11.6-14.6 [facility] Comment on above: Performed By: #### L 500.2500, L3100.5475, L3100.5500, L100.0100, L101.9900 ####[facility] [address] [place], [address] Hematocrit (Bld) [Volume fraction] 41.6 % Normal 37-47 [facility] Comment on above: Performed By: #### L 500.2500, L3100.5475, L3100.5500, L100.0100, L101.9900 ####[facility] [address] [place], [address] Hemoglobin (Bld) [Mass/Vol] 13.5 g/dL Normal 12.0-15.0 [facility] Comment on above: Performed By: #### L 500.2500, L3100.5475, L3100.5500, L100.0100, L101.9900 ####[facility] [address] [place], [address] IG% 0.400 Normal 0.0-0.9 [facility] Comment on above: Result Comment: IG% - Immature Granulocytes (promyelocytes, myelocytes and metamyelocytes) > 1% indicates that a LEFT SHIFT is Present. Performed By: #### L 500.2500, L3100.5475, L3100.5500, L100.0100, L101.9900 ####[facility] [address] [place], [address] Lymphocytes/100 WBC (Bld) 23.6 % Normal 19-41 [facility] Comment on above: Performed By: #### L 500.2500, L3100.5475, L3100.5500, L100.0100, L101.9900 ####[facility] [address] [place], [address] MCH (RBC) [Entitic mass] 29.1 pg Normal 27.0-32.0 [facility] Comment on above: Performed By: #### L 500.2500, L3100.5475, L3100.5500, L100.0100, L101.9900 ####[facility] [address] [place], [address] MCHC (RBC) [Mass/Vol] 32.5 g/dL Normal 32-36 [facility] Comment on above: Performed By: #### L 500.2500, L3100.5475, L3100.5500, L100.0100, L101.9900 ####[facility] [address] [place], [address] MCV (RBC) [Entitic vol] 89.7 fL Normal 81-99 [facility] Comment on above: Performed By: #### L 500.2500, L3100.5475, L3100.5500, L100.0100, L101.9900 ####[facility] [address] [place], [address] Monocytes/100 WBC (Bld) 5.0 % Normal 0-10 [facility] Comment on above: Performed By: #### L 500.2500, L3100.5475, L3100.5500, L100.0100, L101.9900 ####[facility] [address] [place], [address] Neutrophils/100 WBC (Bld) 64.8 % Normal 47-70 [facility] Comment on above: Performed By: #### L 500.2500, L3100.5475, L3100.5500, L100.0100, L101.9900 ####[facility] [address] [place], [address] Nucleated RBC (Bld) [#/Vol] 0 10*3/uL Normal 0-5 [facility] Comment on above: Performed By: #### L 500.2500, L3100.5475, L3100.5500, L100.0100, L101.9900 ####[facility] [address] [place], [address] Platelet mean volume (Bld) [Entitic vol] 11.7 fL Normal 6.2-12.0 [facility] Comment on above: Performed By: #### L 500.2500, L3100.5475, L3100.5500, L100.0100, L101.9900 ####[facility] [address] [place], [address] Platelets (Bld) [#/Vol] 296 10*3/uL Normal 150-450 [facility] Comment on above: Performed By: #### L 500.2500, L3100.5475, L3100.5500, L100.0100, L101.9900 ####[facility] [address] [place], [address] RBC (Bld) [#/Vol] 4.64 10*6/uL Normal 4.2-5.4 [facility] Comment on above: Performed By: #### L 500.2500, L3100.5475, L3100.5500, L100.0100, L101.9900 ####[facility] [address] [place], [place], [address] RDW SD 40.3 fl Normal 35.1-43.9 [facility] Comment on above: Performed By: #### L 500.2500, L3100.5475, L3100.5500, L100.0100, L101.9900 ####[facility] [address] [place], [address] WBC (Bld) [#/Vol] 6.8 10*3/uL Normal 4.4-11.0 [facility] Comment on above: Performed By: #### L 500.2500, L3100.5475, L3100.5500, L100.0100, L101.9900 ####[facility] [address] [place], [place], [address] Carbon dioxide measurementOr dered By: Kenny Butler on 06-04-2024 CO2 [Moles/Vol] 21.0 mmol/L 21.0-32.0 [facility] Chloride measurementOrdered By: Kenny Butler on 06-04-2024 Chloride [Moles/Vol] 106 mmol/L 98-107 [facility] DNA double strand Ab Qn (S)O rdered By: Kenny Butler on 06-04-2024 Anti-Double Strand DNA Antibody <1 IU/mL 0-9 [facility] Comment on above: Negative <5 Equivoca l 5 - 9 Positive >9Previous reported result: TNP IU/mLEdited by: RAFA on 06/05/24:1208 AMENDED REPORT 06/05/24 1208 dsDNA AB previously reported as: Test not performed Eosinophil percentageOrdered By: Kenny Butler on 06-04-2024 Eosinophils/100 WBC (Bld) 5.8 % High 0-5 [facility] Erythrocyte Sed Rateon 06-04 SED RATE 20 mm/hr Normal 0-30 [facility] Comment on above: Performed By: #### L 500.2500, L3100.5475, L3100.5500, L100.0100, L101.9900 ####[facility] [address] [place], [address] Erythrocyte distribution wid th (RBC) [Ratio]Ordered By: Kenny Butler on 06-04-2024 Erythrocyte distribution width (RBC) [Entitic vol] 40.3 fL 35.1-43.9 [facility] Erythrocyte distribution wid th ratioOrdered By: Kenny Butler on 06-04-2024 Erythrocyte distribution width (RBC) [Ratio] 12.3 % 11.6-14.6 [facility] Erythrocyte sedimentation ra teOrdered By: Kenny Butler on 06-04-2024 ESR (Bld) [Velocity] 20 mm/h 0-30 [facility] Estimated glomerular filtrat ion rate (GFR) AmericanOrdered By: Kenny Butler on 06-04-2024 Estimated GFR (MDRD) Amer 87 mL/min >60 [facility] Comment on above: GFR Calc Glomerular filtration rate ( GFR) estimationOrdered By: Kenny Butler on 06-04-2024 Estimated GFR (MDRD) Non-Af Amer 72 mL/min >60 [facility] Comment on above: Non- GFR Calc Glucose measurementOrdered B y: Kenny Butler on 06-04-2024 Glucose [Mass/Vol] 112 mg/dL High 74-106 [facility] Comment on above: Fasting Glucose resu lt from 100 to 125 mg/dL suggests IMPAIRED HOMEOSTASIS per A.D.A. criteria. Hematocrit Auto (Bld) [Volum e fraction]Ordered By: Kenny Butler on 06-04-2024 Hematocrit (Bld) [Volume fraction] 41.6 % 37-47 [facility] Hemoglobin measurementOrdere d By: Kenny Butler on 06-04-2024 Hemoglobin (Bld) [Mass/Vol] 13.5 g/dL 12.0-15.0 [facility] Immature granulocytes/100 WB C Auto (Bld)Ordered By: Kenny Butler on 06-04-2024 Immature granulocytes/100 WBC (Bld) 0.400 % 0.0-0.9 [facility] Comment on above: IG% - Immature Granu locytes (promyelocytes, myelocytes and metamyelocytes) > 1% indicates that a LEFT SHIFT is Present. Lymphocytes Auto (Unsp spec) [#/Vol]Ordered By: Kenny Butler on 06-04-2024 Lymphocytes (Bld) [#/Vol] 1.60 10*3/uL 0.83-4.51 [facility] Lymphocytes/100 WBC Auto (Un sp spec)Ordered By: Kenny Butler on 06-04-2024 Lymphocytes/100 WBC (Bld) 23.6 % 19-41 [facility] MCV (mean corpuscular volume ) determinationOrdered By: Kenny Butler on 06-04-2024 MCV (RBC) [Entitic vol] 89.7 fL 81-99 [facility] Mean corpuscular hemoglobin (MCH) determinationOrdered By: Kenny Butler on 06-04-2024 MCH (RBC) [Entitic mass] 29.1 pg 27.0-32.0 [facility] Mean corpuscular hemoglobin concentration (MCHC) determinationOrdered By: Kenny Butler on 06-04-2024 MCHC (RBC) [Mass/Vol] 32.5 g/dL 32-36 [facility] Mean platelet volume determi nationOrdered By: Kenny Butler on 06-04-2024 Platelet mean volume (Bld) [Entitic vol] 11.7 fL 6.2-12.0 [facility] Monocyte percentageOrdered B y: Kenny Butler on 06-04-2024 Monocytes/100 WBC (Bld) 5.0 % 0-10 [facility] Neutrophil percentageOrdered By: Kenny Butler on 06-04-2024 Neutrophils/100 WBC (Bld) 64.8 % 47-70 [facility] Nucleated red blood cell per centageOrdered By: Kenny Butler on 06-04-2024 Nucleated RBC/100 WBC (Bld) [Ratio] 0 % 0-5 [facility] Platelet countOrdered By: Alireza Butler on 06-04-2024 Platelets (Bld) [#/Vol] 296 10*3/uL 150-450 [facility] Potassium measurementOrdered By: Kenny Butler on 06-04-2024 Potassium [Moles/Vol] 4.0 mmol/L 3.5-5.1 [facility] RBC Auto (Bld) [#/Vol]Ordere d By: Kenny Butler on 06-04-2024 RBC (Bld) [#/Vol] 4.64 10*6/uL 4.2-5.4 [facility] Serum anion gap measurementO rdered By: Kenny Butler on 06-04-2024 Anion gap [Moles/Vol] 9 mmol/L 5-15 [facility] Serum or plasma calcium omayra urement (mass/volume)Ordered By: Kenny Butler on 06-04-2024 Calcium [Mass/Vol] 9.2 mg/dL 8.5-10.1 [facility] Serum or plasma creatinine m easurement (mass/volume)Ordered By: Kenny Butler on 06-04-2024 Creatinine [Mass/Vol] 0.95 mg/dL 0.55-1.02 [facility] Comment on above: The validity of the calculated GFR & GFRAA in patients over 70 years has not been determined. Clinical correlation is essential. Serum or plasma urea nitroge n measurement (mass/volume)Ordered By: Kenny Butler on 06-04-2024 Urea nitrogen [Mass/Vol] 11 mg/dL 7-18 [facility] Sodium levelOrdered By: Kenny Butler on 06-04-2024 Sodium [Moles/Vol] 137 mmol/L 136-145 [facility] White blood cell (WBC) count Ordered By: Kenny Butler on 06-04-2024 WBC (Bld) [#/Vol] 6.8 10*3/uL 4.4-11.0 [facility] 12 Lead EKGon 03-16-2024 12 Lead EKG [facility] [address] [place] [address] 12 Lead EKG 03/16/24 0420 MR#: [id number] Acct: [id number] Name: LUZ MARINA SCHMIDT Rep #: [id number] : 1990 33 From: Eliceo Barahona MD Attending Dr: Status: DEP ER Ordering Dr: Nader Bates DO Date: 03/16/24 Location: ED Sex: F C Admitted: Test Reason : SYNCOPE Blood Pressure : */* mmHG Vent. Rate : 76 BPM Atrial Rate : 76 BPM P-R Int : 188 ms QRS Dur : 90 ms QT Int : 398 ms P-R-T Axes : 26 48 20 degrees QTcB Int : 447 ms Normal sinus rhythm Normal ECG Confirmed by ELICEO BARAHONA MD ([id number]), manuscript editor JOSEPH GILL ([id number]) on 03/17/2024 9:40:04 AM Referred By: Confirmed By: ELICEO BARAHONA MD 03/17/24939 Date Eliceo Barahona MD CC: Dr. Kenny Butler MD; Nader Bates DO Signed Normal [facility] Basic Metabolic Profile (BMP )on 03-16-2024 BUN/CRE 13.9 RATIO Normal 10-20 [facility] Comment on above: Performed By: #### L 501.9520, L500.2500, L501.5200, L100.0100 #### [facility] [address] [place], [address] CA,Total 9.0 mg/dL Normal 8.5-10.1 [facility] Comment on above: Performed By: #### L 501.9520, L500.2500, L501.5200, L100.0100 #### [facility] [address] [place], [address] Chloride [Moles/Vol] 105 mmol/L Normal 98-107 [facility] Comment on above: Performed By: #### L 501.9520, L500.2500, L501.5200, L100.0100 #### [facility] [address] [place], [address] CO2 [Moles/Vol] 25.0 mmol/L Normal 21.0-32.0 [facility] Comment on above: Performed By: #### L 501.9520, L500.2500, L501.5200, L100.0100 #### [facility] [address] [place], [address] Creatinine [Mass/Vol] 0.93 mg/dL Normal 0.55-1.02 [facility] Comment on above: Result Comment: The validity of the calculated GFR GFRAA in patients over 70 years has not been determined. Clinical correlation is essential. Performed By: #### L 501.9520, L500.2500, L501.5200, L100.0100 #### [facility] [address] [place], [address] ECRCL 119.94 ml/min Normal [facility] Comment on above: Performed By: #### L 501.9520, L500.2500, L501.5200, L100.0100 #### [facility] [address] [place], [address] EST GFR - AA 89 mL/min Normal >60 [facility] Comment on above: Result Comment: Afri can Nauruan GFR Calc Performed By: #### L 501.9520, L500.2500, L501.5200, L100.0100 #### [facility] [address] [place], [address] GAP 6 Normal 5-15 [facility] Comment on above: Performed By: #### L 501.9520, L500.2500, L501.5200, L100.0100 #### [facility] [address] [place], [address] GFR/1.73 sq M.predicted among non-blacks MDRD (S/P/Bld) [Vol rate/Area] 73 mL/min/{1.73_m2} Normal >60 [facility] Comment on above: Result Comment: Non- GFR Calc Performed By: #### L 501.9520, L500.2500, L501.5200, L100.0100 #### [facility] [address] [place], [address] Glucose [Mass/Vol] 112 mg/dL High 74-106 [facility] Comment on above: Result Comment: Fast ing Glucose result from 100 to 125 mg/dL suggests IMPAIRED HOMEOSTASIS per A.D.A. criteria. Performed By: #### L 501.9520, L500.2500, L501.5200, L100.0100 #### [facility] [address] [place], [address] Potassium [Moles/Vol] 3.6 mmol/L Normal 3.5-5.1 [facility] Comment on above: Performed By: #### L 501.9520, L500.2500, L501.5200, L100.0100 #### [facility] [address] [place], [address] Sodium [Moles/Vol] 136 mmol/L Normal 136-145 [facility] Comment on above: Performed By: #### L 501.9520, L500.2500, L501.5200, L100.0100 #### [facility] [address] [place], [address] Urea nitrogen [Mass/Vol] 13 mg/dL Normal 7-18 [facility] Comment on above: Performed By: #### L 501.9520, L500.2500, L501.5200, L100.0100 #### [facility] [address] [place], [address] Bedside Glucoseon 03-16-2024 FINGERSTICK GLU 114 mg/dL High 74-106 [facility] Comment on above: Result Comment: FAISAL NATENT OF PATIENT CARE PER NURSING PROTOCOL Performed By: #### L 501.080 ####[facility] [address] [place], [address] CBC W/Diff, Automatedon - Absolute Lymph 1.11 X10 3/uL Normal 0.83-4.51 [facility] Comment on above: Performed By: #### L 501.9520, L500.2500, L501.5200, L100.0100 #### [facility] [address] [place], [address] Absolute Neut 5.9 X10 3/uL Normal 2.0-7.7 [facility] Comment on above: Performed By: #### L 501.9520, L500.2500, L501.5200, L100.0100 #### [facility] [address] [place], [address] Basophils/100 WBC (Bld) 0.4 % Normal 0-1 [facility] Comment on above: Performed By: #### L 501.9520, L500.2500, L501.5200, L100.0100 #### [facility] [address] [place], [address] Eosinophils/100 WBC (Bld) 3.1 % Normal 0-5 [facility] Comment on above: Performed By: #### L 501.9520, L500.2500, L501.5200, L100.0100 #### [facility] [address] [place], [address] Erythrocyte distribution width (RBC) [Ratio] 12.2 % Normal 11.6-14.6 [facility] Comment on above: Performed By: #### L 501.9520, L500.2500, L501.5200, L100.0100 #### [facility] [address] [place], [address] Hematocrit (Bld) [Volume fraction] 38.5 % Normal 37-47 [facility] Comment on above: Performed By: #### L 501.9520, L500.2500, L501.5200, L100.0100 #### [facility] [address] [place], [address] Hemoglobin (Bld) [Mass/Vol] 13.0 g/dL Normal 12.0-15.0 [facility] Comment on above: Performed By: #### L 501.9520, L500.2500, L501.5200, L100.0100 #### [facility] [address] [place], [address] IG% 0.400 Normal 0.0-0.9 [facility] Comment on above: Result Comment: IG% - Immature Granulocytes (promyelocytes, myelocytes and metamyelocytes) > 1% indicates that a LEFT SHIFT is Present. Performed By: #### L 501.9520, L500.2500, L501.5200, L100.0100 #### [facility] [address] [place], [address] Lymphocytes/100 WBC (Bld) 14.5 % Low 19-41 [facility] Comment on above: Performed By: #### L 501.9520, L500.2500, L501.5200, L100.0100 #### [facility] [address] [place], [address] MCH (RBC) [Entitic mass] 29.4 pg Normal 27.0-32.0 [facility] Comment on above: Performed By: #### L 501.9520, L500.2500, L501.5200, L100.0100 #### [facility] [address] [place], [address] MCHC (RBC) [Mass/Vol] 33.8 g/dL Normal 32-36 [facility] Comment on above: Performed By: #### L 501.9520, L500.2500, L501.5200, L100.0100 #### [facility] [address] [place], [address] MCV (RBC) [Entitic vol] 87.1 fL Normal 81-99 [facility] Comment on above: Performed By: #### L 501.9520, L500.2500, L501.5200, L100.0100 #### [facility] [address] [place], [address] Monocytes/100 WBC (Bld) 4.8 % Normal 0-10 [facility] Comment on above: Performed By: #### L 501.9520, L500.2500, L501.5200, L100.0100 #### [facility] [address] [place], [address] Neutrophils/100 WBC (Bld) 76.8 % High 47-70 [facility] Comment on above: Performed By: #### L 501.9520, L500.2500, L501.5200, L100.0100 #### [facility] [address] [place], [address] Nucleated RBC (Bld) [#/Vol] 0 10*3/uL Normal 0-5 [facility] Comment on above: Performed By: #### L 501.9520, L500.2500, L501.5200, L100.0100 #### [facility] [address] [place], [address] Platelet mean volume (Bld) [Entitic vol] 11.3 fL Normal 6.2-12.0 [facility] Comment on above: Performed By: #### L 501.9520, L500.2500, L501.5200, L100.0100 #### [facility] [address] [place], [address] Platelets (Bld) [#/Vol] 284 10*3/uL Normal 150-450 [facility] Comment on above: Performed By: #### L 501.9520, L500.2500, L501.5200, L100.0100 #### [facility] [address] [place], [address] RBC (Bld) [#/Vol] 4.42 10*6/uL Normal 4.2-5.4 [facility] Comment on above: Performed By: #### L 501.9520, L500.2500, L501.5200, L100.0100 #### [facility] [address] [place], [address] RDW SD 39.1 fl Normal 35.1-43.9 [facility] Comment on above: Performed By: #### L 501.9520, L500.2500, L501.5200, L100.0100 #### [facility] [address] [place], [address] WBC (Bld) [#/Vol] 7.6 10*3/uL Normal 4.4-11.0 [facility] Comment on above: Performed By: #### L 501.9520, L500.2500, L501.5200, L100.0100 #### [facility] [address] [place], [address] Emergency Department Summary on 03-16-2024 Emergency Department Summary [facility] Medical Records Department [address] [place] [address] Emergency Department Summary 03/16/24 MR#: [id number] Acct: [id number] Name: LUZ MARINA SCHMIDT Rep #: [id number] : 1990 33 From: Nader Bates DO PCP: Dr. Kenny Butler MD Status:DEP ER Location: ED HPI History of Present Illness Chief Complaint: Syncope Informant: patient and friend Narrative Narrative: Patient is a 33-year-old female with past medical history of of hypertension anxiety and depression. She states this evening she was hanging out with her friend and she states that she took a few hits of marijuana. She states roughly 45 minutes to an hour later she began to feel "not right". She states that she felt lightheaded and dizzy and like she was going to "pass out" and reports that she believes she did for a slight few seconds. She states the symptoms have persisted over the last few hours and secondary to this comes in for evaluation. She does states she has felt palpitations associated with this but denies any history of abnormal cardiac rhythm. She also states that she does not do any other illicit drugs and has low concern that the marijuana was contaminated/laced [facility] Medical History History of echocardiogram Wears glasses Anemia Syncope History of IBS Gastric reflux Smoker History of edema Hypertension Vaginal delivery Depression Gestational hypertension Fall Hand laceration Lung nodule Anxiety Home Medications ???Medication ???Instructions ???Recorded ???Last Taken ???Type bupropion HCl 300 mg 24 hr tablet, 300 mg PO QAM depression 01/21/20 09/30/23 History extended release (Wellbutrin XL) sertraline 100 mg tablet 100 mg PO DAILY 08/21/23 09/30/23 History spironolactone 25 mg tablet 25 mg PO DAILY 08/21/23 09/30/23 History fexofenadine 180 mg tablet 180 mg PO DAILY 09/28/23 09/30/23 History (Meri Allergy) ondansetron 4 mg disintegrating 4 mg PO TID PRN nausea and 03/16/24 Unknown Rx tablet vomiting #21 tabs Allergy/AdvReac Type Severity Reaction Status Date / Time loperamide (From Imodium A-D) Allergy Severe Anaphylaxis Verified 03/16/24 03:21 Family History Father Diabetes TBI (traumatic brain injury) Mother Diabetes Hypothyroid Surgical History S/P vaginal hysterectomy No pertinent past surgical history Social History household members: spouse and children number of children: 2 current occupational exposures/hazards: No Smoking Status: Current every day smoker tobacco type: cigarettes Tobacco: How many years used: 11 alcohol intake: never substance use type: does not use seatbelt use: always do you feel safe at home: Yes ROS ROS ED Constitutional Constitutional ED: Denies chills or fever(s) Eyes Eyes: Denies change in vision ENT ENT ED: Denies sore throat Cardiovascular Cardiovascular: Reports palpitations and other Details: Positive dizziness/lightheadedness/ syncope ; Denies chest pain Respiratory/Chest Respiratory/Chest: Denies cough or dyspnea Gastrointestinal Gastrointestinal: Reports nausea; Denies abdominal pain, diarrhea or vomiting Genitourinary Genitourinary ED: Denies dysuria, hematuria or urinary frequency Musculoskeletal Musculoskeletal: Denies myalgias Integumentary Denies rash Neurologic Neurologic: Denies headache(s) or paresthesias Hematologic/Lymphatic Hematologic/Lymphatic: Denies easy bleeding or easy bruising EXAM Physical Exam Const Vital Signs: 03/16/24 06:30 Temperature 98.0 F Pulse Rate 71 Respiratory Rate 18 Blood Pressure 123/60 H Blood Pressure Mean 81 Pulse Ox 98 Positive well nourished, well developed and obese General Appearance ED: well developed; Negative for pallor Nutritional Appearance: obese HEENT HEENT Narrative: Normocephalic atraumatic No tongue or cheek biting noted Eyes PERRL and EOMs intact bilaterally General Eye ED: Negative for pale conjunctiva or scleral icterus Neck supple Neck Narrative: No nuchal rigidity or meningeal signs Chest Wall palpation of chest normal Resp normal respiratory effort and clear to auscultation bilaterally Cardio regular rate and regular rhythm Rate: other Other Details: Heart is regular rate and rhythm with occasional ectopic beat noted No murmurs rubs or gallops Radial and carotid pulses are equal and symmetric GI non-tender, non-distended and no masses GI Narrative: Abdomen is soft nontender nondistended with hyperactive bowel sounds. No voluntary guarding or rigidity or pulsatile mass Auscultation: (more content not included)... Normal [facility] Magnesiumon 03-16-2024 Magnesium [Mass/Vol] 1.9 mg/dL Normal 1.6-2.6 [facility] Comment on above: Performed By: #### L 501.9520, L500.2500, L501.5200, L100.0100 #### [facility] [address] [place], [address] Thyroid Stim Hormone (TSH)on 03-16-2024 TSH 2.710 uIU/mL Normal 0.358-3.74 0 [facility] Comment on above: Performed By: #### L 501.9520, L500.2500, L501.5200, L100.0100 #### [facility] [address] [place], [address] Clinical Laboratory Technician Office Visit Reporton 11-20-2023 Clinical Laboratory Technician Office Visit Report [facility] [address] [place] [address] OFFICE VISIT Date of Service: 11/20/23 MR#: [id number] Acct: [id number] Name: LUZ MARINA SCHMIDT Rep #: [id number] : 1990 Provider: Dr. 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 Is patient in pain?: No Allergies loperamide (From Imodium A-D) Allergy (Severe, Verified 11/20/23 14:48) Anaphylaxis Medications ???Medication ???Instructions ???Recorded ???Confirmed ???Type bupropion HCl 300 mg 24 hr tablet, 300 mg PO QAM depression 01/21/20 11/20/23 History extended release (Wellbutrin XL) multivitamin (Daily Multi-Vitamin 1 tab PO DAILY 08/21/23 11/20/23 History tablet) sertraline 100 mg tablet 100 mg PO DAILY 08/21/23 11/20/23 History spironolactone 25 mg tablet 25 mg PO DAILY 08/21/23 11/20/23 History colostrum, bovine 400 mg 180 mg PO DAILY 09/28/23 11/20/23 History capsule,delayed release (Colostrum Prime Life) dicyclomine 10 mg capsule 10 mg PO BID PRN abdominal pain 09/28/23 11/20/23 History fexofenadine 180 mg tablet 180 mg PO DAILY 09/28/23 11/20/23 History (Meri Allergy) PFSH Medical History History of echocardiogram Wears glasses Anemia Syncope History of IBS Gastric reflux Smoker History of edema Hypertension Vaginal delivery Depression Gestational hypertension Fall Hand laceration Lung nodule Anxiety Surgical History S/P vaginal hysterectomy No pertinent past surgical history Family History Father Diabetes TBI (traumatic brain injury) Mother Diabetes Hypothyroid Social History household members: spouse and children number of children: 2 current occupational exposures/hazards: No Smoking Status: Current every day smoker tobacco type: cigarettes Tobacco: How many years used: 11 alcohol intake: never substance use type: does not use seatbelt use: always do you feel safe at home: Yes HPI 6 WEEK POST OP Details: LUZ MARINA SCHMIDT is a 33 year old who presents for postop visit doing well overall History 2 Elective abortions Hx Para 2 Spontaneous abortions Hx # Term Pregnancies Ectopic pregnancies Hx # Pregnancies Multiple births # of living children Past Pregnancies Del. Date Name GA/Weeks Outcome Route Bth Weight Gen Labor Lgth Anesthesia Del Locatn Provider FOB Unknown Lee Unknown Daniel ROS Const Constitutional: Reports system reviewed and no additional complaints, except as documented GI GI: Denies abdominal pain, cramping, nausea or vomiting : Denies pelvic pain, urinary frequency, urinary incontinence, urinary urgency, vaginal discharge, vaginal dryness or vaginal odor Exam Const General: cooperative, healthy appearing, comfortable and no acute distress External Female Exam: normal external appearance and normal appearance of the urethra Urethra: normal appearance of the urethra Speculum Exam - Vagina: normal appearance of the vagina and other (normal vaginal length, apex well supprted and healed, intact no granulation) Speculum Exam - Cervix: absent Bimanual Exam- Vagina Uterus: uterus absent Bimanual Exam- Adnexa, other: normal and non-tender Pelvic Support: normal Other: vaginal cuff normal and intact, good vaginal length, no granulation tissue present Coding Level of Care Code No Charge Diagnoses S/P vaginal hysterectomy Z90.710 Abnormal uterine bleeding N93.9 Polycystic ovarian syndrome E28.2 Assessment and Plan Assessment and Plan (1) S/P vaginal hysterectomy: Status: Acute Comment: TVHBS SM AUB PCOS (2) Abnormal uterine bleeding: Status: Acute Comment: due to PCOS, failed hormonal management, smoker, proceed with TVHBS possible LAVHBS (3) Polycystic ovarian syndrome: Status: Acute Comment: nl US. emb done. nl cbc and tsh. didn't tolerate hormonal treatments- ocp, iud, depo provera, and nuvaring in past. smoker. offered lysteda and reviewed surgical options. plan TVHBS possible LAVH Plan fu annually 11/20/23 1512 Date Jess Alas MD Cosigner Signature: Date (if applicable) CC: Normal [facility] Cervical or vaginal specimen microscopic examination by liquid based cytology (reportOrdered By: Bonita Patricio on 08-21-2023 Cytology report Cyto stain.thin prep Doc (Cvx/Vag) Comment . [facility] Comment on above: Criteria not met, HP V Genotype not performed.Performed at: [facility] [address] [id number] Director: Zeina Ha MD, Phone: [phone] at: =[facility] [id number] Director: Zeina Ha MD, Phone: [phone] Cervical or vagninal specime n microscopic examination by cytology stain (reported asOrdered By: Bonita Patricio on 08-21-2023 Cytology report Cyto stain Doc (Cvx/Vag) Comment . [facility] Comment on above: The Pap smear is a s creening test designed to aid in thedetection of premalignant and malignant conditions of theuterine cervix. It is not a diagnostic procedure andshould not be used as the sole means of detecting cervicalcancer. Both false-positive and false-negative reports dooccur. Detection in cervical specim en of any of human papilloma virus (HPV) 16, 18, 31, 33,Ordered By: Bonita Patricio on 08-21-2023 HPV 16+18+31+33+35+39+45+51+ 52+56+58+59+66+68 DNA Probe+sig amp Ql (Cvx) Negative Negative [facility] Comment on above: This nucleic acid am plification test detects fourteen high-risk HPV types (16,18,31,33,35,39,45,51,52,56,58,59,66,68)without differentiation. Laboratory - CytologyOrdered By: Bonita Patricio on 08-21-2023 Access Nurse Cyto stain Nom (Cvx/Vag) [ID] Comment . [facility] Comment on above: Wilberto Kaur, Cytot echnologist (ASCP) Laboratory - Miscellaneous t estsOrdered By: Bonita Patricio on 08-21-2023 Service comment (Unsp spec) [Interp] . . [facility] Thin prep Papanicolaou smear with manual screeningOrdered By: Bonita Patricio on 08-21-2023 Thin prep Papanicolaou smear with manual screening Comment . [facility] Comment on above: NEGATIVE FOR INTRAEP ITHELIAL LESION OR MALIGNANCY. This liquid based Th inPrep(R) pap test was screened withthe use of an image guided system. Basophil percentageOrdered B y: Chel Mack on 04-25-2023 Glucose [Mass/Vol] 140 mg/dL 74-106 [facility] Comment on above: Fasting Glucose resu lt greater than or equal to 126 mg/dL suggests DIABETES MELLITUS per A.D.A. criteria. Laboratory - Chemistry and C hemistry - challengeOrdered By: Chel Mack on 04-25-2023 Free T4 [Mass/Vol] 0.97 ng/dL 0.76-1.46 [facility] No Panel InformationOrdered By: Chel Mack on 04-25-2023 Thyroid Stimulating Hormone (TSH) 0.89 uIU/mL 0.358-3.74 [facility] Insulin Level 507.4 mU/L 2.6-37.6 [facility] Free Triiodothyronine (T3) pg/dL 2.5 pg/mL 2.18-3.98 [facility] Glucose 2 Hour See comment [facility] Comment on above: FASTING 101 H Col: 1 06/26/22720 30 min GLU 164 H Col: 04/25/235 60 min GLU 163 H Col: 04/25/2328 120min GLU 71 Col: 04/25/23925 Total Triiodothyronine 1.24 ng/mL 0.6-1.81 [facility] Serum or plasma insulin omayra urement at 2 hours post 75 gm oral glucose (units/volume)Ordered By: Chel Mack on 04-25-2023 Insulin 2 Hr post 75 g glucose PO Qn See comment [facility] Comment on above: FASTING 28.2 Col: 720 30 min INS 319.9 Col: 04/25/23754 60 min INS 449.8 Col: 04/25/23827 120min INS 112.5 Col: 04/25/23925 Serum or plasma prolactin me asurement (mass/volume)Ordered By: Chel Mack on 04-25-2023 Prolactin [Mass/Vol] 5.5 ng/mL [facility] Comment on above: NORMAL REFERENCE RAN GES FEMALE NON- 2.2 - 30.3 ng/mL 8.1 - 347.6 ng/mL POST-MENOPAUSAL 0.7 - 31.5 ng/mL MALE 2.5 - 17.4 ng/mL Basophil percentageOrdered B y: Chel Frederick on 04-14-2023 Bilirubin [Mass/Vol] 0.30 mg/dL 0.20-1.00 [facility] Comment on above: For patients on eltr ombopag therapy, use of Dimension [place] TBIL is not recommended. Chloride [Moles/Vol] 107 mmol/L 98-107 [facility] Cholesterol [Mass/Vol] 170 mg/dL <200 [facility] Comment on above: <200 mg/dL Desirable 200-240 mg/dL Borderline >240 mg/dL High Risk Glucose [Mass/Vol] 91 mg/dL 74-106 [facility] Potassium [Moles/Vol] 4.0 mmol/L 3.5-5.1 [facility] Protein [Mass/Vol] 7.4 g/dL 6.4-8.2 [facility] Sodium [Moles/Vol] 138 mmol/L 136-145 [facility] Testosterone [Mass/Vol] 11 ng/dL 8-60 [facility] Triglyceride [Mass/Vol] 82 mg/dL <199 [facility] Comment on above: The drugs N-Acetylcy steine and Metamizole may falsely depress this assay.Serum Triglycerides Reference Interval Normal <150 mg/dL Borderline high 150 - 199 mg/dL High 200 - 499 mg/dL Very High > or = 500 mg/dL WBC (Bld) [#/Vol] 5.2 10*3/uL 4.4-11.0 [facility] Blood erythrocytes count (nu mber/volume)Ordered By: Chel Mack on 04-14-2023 RBC (Bld) [#/Vol] 4.37 10*6/uL 4.2-5.4 [facility] Blood hemoglobin measurement (mass/volume)Ordered By: Chel Mack on 04-14-2023 Hemoglobin (Bld) [Mass/Vol] 12.4 g/dL 12.0-15.0 [facility] Blood platelet mean volumeOr dered By: Chel Mack on 04-14-2023 Platelet mean volume (Bld) [Entitic vol] 11.4 fL 6.2-12.0 [facility] Determination of erythrocyte mean corpuscular volume (MCV)Ordered By: Chel Mack on 04-14-2023 MCV (RBC) [Entitic vol] 88.6 fL 81-99 [facility] Free testosterone percentage Ordered By: Chel Frederick on 04-14-2023 Testosterone Free/Testosterone.total [Mass fraction] 1.62 % 0.50-2.80 [facility] Hematocrit Auto (Bld) [Volum e fraction]Ordered By: Chel Mack on 04-14-2023 Hematocrit (Bld) [Volume fraction] 38.7 % 37-47 [facility] - Chemistry and C hemistry - challengeOrdered By: Chel Mack on 04-14-2023 ALP [Catalytic activity/Vol] 106 U/L 45-117 [facility] ALT [Catalytic activity/Vol] 15 U/L 13-56 [facility] CO2 [Moles/Vol] 28.0 mmol/L 21.0-32.0 [facility] Free T4 [Mass/Vol] 1.02 ng/dL 0.76-1.46 [facility] Globulin (S) [Mass/Vol] 3.7 g/dL 2.2-4.2 [facility] Urea nitrogen/Creatinine [Mass ratio] 11.3 mg/mg 10-20 [facility] - Hematology and Cell countsOrdered By: Chel Mack on 04-14-2023 Erythrocyte distribution width (RBC) [Entitic vol] 39.5 fL 35.1-43.9 [facility] Erythrocyte distribution width (RBC) [Ratio] 12.1 % 11.6-14.6 [facility] MCH (RBC) [Entitic mass] 28.4 pg 27.0-32.0 [facility] MCHC Auto (RBC) [Mass/Vol]Or dered By: Chel Mack on 04-14-2023 MCHC (RBC) [Mass/Vol] 32.0 g/dL 32-36 [facility] No Panel InformationOrdered By: Chel Mack on 04-14-2023 Androstenedione 52 ng/dL 41-262 [facility] Dehydroepiandrosterone Sulfate 201.0 ug/dL 84.8-378.0 [facility] Estimated GFR (MDRD) Amer 85 mL/min >60 [facility] Comment on above: GFR Calc Estimated GFR (MDRD) Non-Af Amer 70 mL/min >60 [facility] Comment on above: Non- GFR Calc Follicle Stimulating Hormone 11.0 mIU/mL [facility] Comment on above: NORMAL REFERENCE RAN GES FEMALE FOLLICULAR 2.3 - 12.6 mIU/mL MID-CYCLE PEAK 5.2 - 17.5 mIU/mL LUTEAL 1.7 - 12.9 mIU/mL POST-MENOPAUSAL ON MHT 5.9 - 72.8 mIU/mL NOT ON MHT 12.7 - 132.2 mlU/mL MALE 0.7 - 10.8 mIU/mL Free Triiodothyronine (T3) pg/dL 2.4 pg/mL 2.18-3.98 [facility] Luteinizing Hormone 3.9 mIU/mL [facility] Comment on above: NORMAL REFERENCE RAN GES FEMALE FOLLICULAR 1.9 - 26.2 mIU/mL MID-CYCLE PEAK 22.8 - 76.1 mIU/mL LUTEAL 0.6 - 16.6 mIU/mL POST-MENOPAUSAL ON MHT 1.1 - 52.4 mIU/mL NOT ON MHT 8.6 - 61.8 mIU/mL MALE 1.2 - 10.6 mIU/mL Total Triiodothyronine 1.24 ng/mL 0.6-1.81 [facility] Vitamin D 25-Hydroxy 8.4 ng/mL [facility] Comment on above: Vitamin D 25(OH) Sta tus Range Deficiency <20 ng/mL (50nmol/L) Insufficiency 20 - 30 ng/mL (50 - 75 nmol/L) Sufficiency 30 - 100 ng/mL (75 - 250 nmol/L) Toxicity >100 ng/mL (>250 nmol/L) Platelets bldOrdered By: Brooks Mack on 04-14-2023 Platelets (Bld) [#/Vol] 299 10*3/uL 150-450 [facility] Serum or plasma 17-hydroxypr ogesterone measurement (mass/volume)Ordered By: Chel Mack on 04-14-2023 17-Hydroxyprogesterone [Mass/Vol] 18 ng/dL . [facility] Comment on above: Adult Female Follicu lar 15 - 70 Luteal 35 - 290Performed at: - [address] [id number] Director: Sanjana Cancino MD, Phone: [phone] Serum or plasma albumin omayra urement (mass/volume)Ordered By: Chel Mack on 04-14-2023 Albumin [Mass/Vol] 3.7 g/dL 3.2-5.0 [facility] Serum or plasma albumin/glob ulin mass ratioOrdered By: Chel Mack on 04-14-2023 Albumin/Globulin [Mass ratio] 1.0 {ratio} 0.9-2.4 [facility] Serum or plasma calcium omayra urement (mass/volume)Ordered By: Chel Mack 04-14-2023 Calcium [Mass/Vol] 9.0 mg/dL 8.5-10.1 [facility] Serum or plasma cholesterol in HDL measurement (mass/volume)Ordered By: Chel Mack on 04-14-2023 Cholesterol in HDL [Mass/Vol] 47 mg/dL >40 [facility] Comment on above: The drugs N-Acetylcy steine and Metamizole may falsely depress this assay. Reference Range HDL <40 mg/dL Low HDL Cholesterol HDL >or= 60 mg/dL High HDL Cholesterol Serum or plasma cholesterol in VLDL measurement (mass/volume)Ordered By: Chel Mack on 04-14-2023 Cholesterol in VLDL [Mass/Vol] 16 mg/dL 5-40 [facility] Serum or plasma cortisol elfego surement (mass/volume)Ordered By: Chel Mack on 04-14-2023 Cortisol [Mass/Vol] 16.20 ug/dL 3.44-22.45 [facility] Comment on above: Adult (AM) 5.27 - 22 .45 ug/dL Adult (PM) 3.44 - 16.76 ug/dLPlease note revised CORTISOL reference range effective 2019. Serum or plasma creatinine m easurement (mass/volume)Ordered By: Chel Mack on 04-14-2023 Creatinine [Mass/Vol] 0.98 mg/dL 0.55-1.02 [facility] Comment on above: The validity of the calculated GFR & GFRAA in patients over 70 years has not been determined. Clinical correlation is essential. Serum or plasma estradiol (E 2) measurement (mass/volume)Ordered By: Chel Mack on 04-14-2023 E2 [Mass/Vol] 43.5 pg/mL [facility] Comment on above: NORMAL REFERENCE RAN GES FEMALE FOLLICULAR 21.4 - 164.8 pg/mL MID-CYCLE PEAK 49.9 - 367.2 pg/mL LUTEAL 40.2 - 259.0 pg/mL POST-MENOPAUSAL ON MHT <11.0 - 462.1 pg/mL NOT ON MHT <11.0 - 58.3 pg/mL MALE <11.0 - 52.5 pg/mL NOTE:[employer] HAS CONFIRMED THE DRUG FULVETRANT (FASLODEX) MAY CAUSE FALSELY ELEVATED ESTRADIOL RESULTS WHEN USING THIS TEST METHOD. IF PATIENT IS TAKING FULVESTRANT AN ALTERNATIVE METHOD SHOULD BE USED TO DETERMINE ESTRADIOL CONCENTRATION. Serum or plasma flecainide m easurement (mass/volume)Ordered By: Chel Mack on 04-14-2023 Flecainide [Mass/Vol] 0.830 ng/mL . [facility] Comment on above: For assays employing antibodies, the possibility exists forinterference by heterophile antibodies in the samples.11.Trish Canales Interferences in Immunoassays - still a threat. Clin. Chem. 2000; 46: 8535-9488.This test was developed and its performance characteristicsdetermined by [employer]. It has not been cleared or approvedby the Food and Drug Administration.Reference Range:Females 31 - 35y: 0.66 - 8.75Median 3.00AMH concentrations of >= 1.06 ng/mL is correlated with abetter response to ovarian stimulation, produced moreretrievable oocytes and higher odds of live accordingto Fabrice diallo al. Fertility and Sterility. 2010:94:2354-9817. The current AMH test method correlates withthe study method with a slope of 0.94.Females at risk of ovarian hyperstimulation syndrome orpolycystic ovarian syndrome (PCOS) may exhibit elevatedserum AMH concentrations. AMH levels from PCOS patientsmay be 2 to 5 fold higher than age-appropriate referenceinterval values.Granulosa cell tumors of the ovary may secrete AMH alongwith other tumor markers. Elevated AMH is not specific formalignancy, and the assay should not be used exclusively todiagnose or exclude an AMH-secreting ovarian tumor. Serum or plasma low density lipoprotein (LDL) cholesterol measurement (mass/volume)Ordered By: Chel Mack on 04-14-2023 Cholesterol in LDL [Mass/Vol] 107 mg/dL 0-130 [facility] Serum or plasma sex hormone binding globulin measurement (moles/volume)Ordered By: Chel Mack on 04-14-2023 Sex hormone binding globulin [Moles/Vol] 35.2 nmol/L 24.6-122.0 [facility] Comment on above: Performed at: [address] [id number] Director: Nickolas Zavala PhD, Phone: [phone] at: [facility] [id number] Director: Sanjana Cancino MD, Phone: [phone] at: [facility] [address] [id number] Director: Jakob Malin MD, Phone: [phone] Serum or plasma testosterone free measurement (mass/volume)Ordered By: Chel Mack on 04-14-2023 Testosterone Free [Mass/Vol] 0.18 ng/dL 0.10-0.85 [facility] Serum or plasma urea nitroge n measurement (mass/volume)Ordered By: Chel Mack on 04-14-2023 Urea nitrogen [Mass/Vol] 11 mg/dL 7-18 [facility] Thin prep Papanicolaou smear with manual screeningOrdered By: Chel Mack on 04-14-2023 Thin prep Papanicolaou smear with manual screening 10 U/L 15-37 [facility] Thin prep Papanicolaou smear with manual screening 3 5-15 [facility] Basophil percentageOrdered B y: Dr. Tolbert on 05-15-2022 Chloride [Moles/Vol] 103 mmol/L 98-107 [facility] Glucose [Mass/Vol] 85 mg/dL 74-106 [facility] Potassium [Moles/Vol] 4.0 mmol/L 3.5-5.1 [facility] Sodium [Moles/Vol] 137 mmol/L 136-145 [facility] Laboratory - Chemistry and C hemistry - challengeOrdered By: Dr. Tolbert on 05-15-2022 CO2 [Moles/Vol] 28.0 mmol/L 21.0-32.0 [facility] Urea nitrogen/Creatinine [Mass ratio] 9.6 mg/mg 10-20 [facility] No Panel InformationOrdered By: Dr. Tolbert on 05-15-2022 Estimated GFR (MDRD) Amer 89 mL/min >60 [facility] Comment on above: GFR Calc Estimated GFR (MDRD) Non-Af Amer 73 mL/min >60 [facility] Comment on above: Non- GFR Calc Serum or plasma calcium omayra urement (mass/volume)Ordered By: Dr. Tolbert on 05-15-2022 Calcium [Mass/Vol] 9.6 mg/dL 8.5-10.1 [facility] Serum or plasma creatinine m easurement (mass/volume)Ordered By: Dr. Tolbert on 05-15-2022 Creatinine [Mass/Vol] 0.94 mg/dL 0.55-1.02 [facility] Comment on above: The validity of the calculated GFR & GFRAA in patients over 70 years has not been determined. Clinical correlation is essential. Serum or plasma urea nitroge n measurement (mass/volume)Ordered By: Dr. Tolbert on 05-15-2022 Urea nitrogen [Mass/Vol] 9 mg/dL 7-18 [facility] Thin prep Papanicolaou smear with manual screeningOrdered By: Dr. Tolbert on 05-15-2022 Thin prep Papanicolaou smear with manual screening 6 5-15 [facility] Basophil percentageon 2021 Cholesterol [Mass/Vol] 213 mg/dL <200 [facility] Work Phone: Comment on above: <200 mg/dL Desirable 200-240 mg/dL Borderline >240 mg/dL High Risk Triglyceride [Mass/Vol] 161 mg/dL [facility] Work Phone: Comment on above: The drugs N-Acetylcy steine and Metamizole may falsely depress this assay.Serum Triglycerides Reference Interval Normal <150 mg/dL Borderline high 150 - 199 mg/dL High 200 - 499 mg/dL Very High > or = 500 mg/dL Serum or plasma cholesterol in HDL measurement (mass/volume)on 08-25-2021 Cholesterol in HDL [Mass/Vol] 50 mg/dL [facility] Work Phone: Comment on above: The drugs N-Acetylcy steine and Metamizole may falsely depress this assay. Reference Range HDL <40 mg/dL Low HDL Cholesterol HDL >or= 60 mg/dL High HDL Cholesterol Serum or plasma cholesterol in VLDL measurement (mass/volume)on 08-25-2021 Cholesterol in VLDL [Mass/Vol] 32 mg/dL 5-40 [facility] Work Phone: Serum or plasma low density lipoprotein (LDL) cholesterol measurement (mass/volume)on 08-25-2021 Cholesterol in LDL [Mass/Vol] 131 mg/dL 0-130 [facility] Work Phone: COVID PCR, SCREENING CONGREG ATEon 10-23-2019 CORONAVIRUS 2019,PCR NOT DETECTED Normal Not Detected [facility] Comment on above: Result Comment: This assay is designed to detect the N, ORF1ab and/or S genes of SARS-CoV-2 via nucleic acid amplification. A Negative (NOT DETECTED) result does not preclude 2019-nCoV infection since the adequacy of sample collection and/or low viral burden may result in presence of viral nucleic acids below the clinical sensitivity of this test method. Negative (NOT DETECTED) result should not be used as the sole basis for treatment or other patient management decisions. Rather negative results should be combined with clinical observations, patient history, and epidemiological information to make patient management decisions. Fact sheet for providers: https://www.fda.gov/media/552328/download Fact sheet for patients: https://www.fda.gov/media/137624/download This test has received FDA Emergency Use Authorization (EUA) and has been verified by [facility] ([facility]). This test is only authorized for the duration of time that circumstances exist to justify the authorization of the emergency use of in vitro diagnostic tests for the detection of SARS-CoV-2 virus and/or diagnosis of COVID-19 infection under section 564(b)(1) of the Act, 21 U.S.C. 360bbb-3(b)(1), unless the authorization is terminated or revoked sooner. [facility] ([facility]) is certified under CLIA-88 as qualified to perform high complexity testing. This tests analytical performance characteristics have been determined by [facility]. Testing is performed at [facility] is located at [address] [place] [address] (CLIA License #[id number], CAP #[id number]). Performed By: #### C VCLA #### [facility] [address] [place] [address] COVID PCR, SCREENING CONGREG ATEon 10-22-2019 Lab Specimen Source Nasal, Nasopharyngeal Normal [facility] Comment on above: Performed By: #### C V[facility] #### [facility] [address] [place] [address] Vital Signs Date Time Vital Sign Value Performing Clinician Joon tejeda 10-22-2024 08:23-0400 Body height 172.[address] Kenny Butler MD Work Phone: [facility] 10-22-2024 08:23-0400 Body mass index (BMI) [Ratio] 42.5 kg/m2 Dr. Kenny Butler MD Work Phone: [facility] 10-22-2024 08:23-0400 Body weight 127.[address] Kenny Butler MD Work Phone: [facility] 10-22-2024 08:23-0400 Diastolic blood pressure 84 mm[Hg] Dr. Kenny Butler MD Work Phone: 3(192)856-107713 [address] 10-22-2024 08:23-0400 Systolic blood pressure 136 mm[Hg] Dr. Kenny Butler MD Work Phone: 5(139)275-632913 [address] 08-04-2024 13:12-0400 Body height 172.[address] Kenny Butler MD Work Phone: 8(710)890-245774 [place] [address] 08-04-2024 12:54-0400 Body mass index (BMI) [Ratio] 42.9 kg/m2 Dr. Kenny Butler MD Work Phone: 2(698)209-770474 [place] [address] 08-04-2024 12:54-0400 Body weight 128.[address] Kenny Butler MD Work Phone: 3(244)259-976774 [place] [address] 08-04-2024 12:54-0400 Diastolic blood pressure 82 mm[Hg] Dr. Kenny Butler MD Work Phone: 8(218)514-822274 [place] [address] 08-04-2024 12:54-0400 Systolic blood pressure 126 mm[Hg] Dr. Kenny Butler MD Work Phone: 1(306)[phone] [address] 08-21-2023 14:02-0400 Body height 172.[address] Kenny Butler Work Phone: 7(784)907-949101 [place] [address] 08-21-2023 14:02-0400 Body mass index (BMI) [Ratio] 41 kg/m2 Dr. Kenny Butler Work Phone: 2(262)989-041501 [place] [address] 08-21-2023 14:02-0400 Body weight 122.[address] Kenny Butler Work Phone: [facility] 08-21-2023 14:02-0400 Diastolic blood pressure 80 mm[Hg] Dr. Kenny Butler Work Phone: [facility] 08-21-2023 14:02-0400 Systolic blood pressure 122 mm[Hg] Dr. Kenny Butler Work Phone: [facility] Encounters Encounter Date Encounter Type Care Provider Facility Start: 11-17-2024 ambulatory Bonita Patricio Facility :[facility] Start: 10-22-2024 End: 10-22-2024 Patient encounter procedure Bonita Patricio SHREDDED FILLER CUTTER OPERATOR-C -[facility] Work Phone: Start: 10-22-2024 End: 10-22-2024 Patient encounter status Bonita Patricio SHREDDED FILLER CUTTER OPERATOR-C [facility] Start: 10-22-2024 End: 10-22-[address] Kenny Butler MD Work Phone: [facility] Work Phone: Start: 08-04-2024 End: 08-04-[address] Kenny Butler MD Work Phone: [facility] Work Phone: Start: 08-04-2024 End: 08-04-2024 Patient encounter procedure [place] SHREDDED FILLER CUTTER OPERATOR-C -Laboratory, Specimen Work Phone: Start: 08-04-2024 End: 08-04-2024 Patient encounter procedure Katie Andrey SHREDDED FILLER CUTTER OPERATOR-C -[facility] Work Phone: Start: 08-04-2024 End: 08-04-2024 ambulatory Kenny Butler Facility:[facility] Start: 08-04-2024 End: 08-04-2024 ambulatory Katie Balderas SHREDDED FILLER CUTTER OPERATOR Facility:[facility] Start: 06-04-2024 End: 06-04-[address] Kenny Butler MD -Laboratory, [facility] Start: 06-04-2024 End: 06-04-2024 ambulatory Kenny Butler Facility:[facility] Start: 03-16-2024 End: 03-16-2024 Emergency department patient visit Kenny Butler Facility:[facility] Start: 08-27-2023 End: 08-27-[address] Kenny Butler Work Phone: [facility] Work Phone: Start: 08-27-2023 End: 08-27-[address] Kenny Butler Work Phone: [facility]-Ultrasound, [facility] Work Phone: Start: 08-21-2023 End: 08-21-[address] Kenny Butler Work Phone: [facility] Work Phone: Start: 08-21-2023 End: 08-21-[address] [facility] Work [facility]: Start: 08-21-2023 End: 08-21-[address] Kenny Butler Work Phone: [facility] Work Phone: Start: 04-25-2023 End: 04-25-2023 ambulatory [facility] Work Phone: Start: 04-25-2023 End: 04-25-2023 Patient encounter procedure [facility] Work Phone: Start: 04-14-2023 End: 04-14-2023 ambulatory [facility] Work Phone: Start: 04-14-2023 End: 04-14-2023 [facility] Start: 05-15-2022 End: 05-15-2022 ambulatory [facility] Work Phone: Start: 05-15-2022 End: 05-15-2022 [facility] Start: 08-25-2021 End: 08-25-2021 Patient encounter procedure [facility] Procedures Date Procedure Procedure Detail Performing Clinician Start: 08-04-2024 Gram stain microscopy D rosalie Butler MD Work Phone: Start: 08-04-[address] Kenny Butler MD Work Phone: Start: 08-27-[address] Reinier Butler Work Phone: Plan of Treatment Date Care Activity Detail Author Start: 10-22-2024 Patient referral [facility] Work Phone: Start: 08-04-2024 End: 08-04-2024 Source specific culture [facility] Start: 04-14-2023 [facility] 17-Hydroxyprogestero ne [Mass/volume] in Serum or Plasma [facility] Androstenedione [Mas s/volume] in Serum or Plasma [facility] Dehydroepiandrostero ne sulfate (DHEA-S) [Mass/volume] in Serum or Plasma [facility] Mullerian inhibiting substance [Mass/volume] in Serum or Plasma [facility] Patient referral [facility] Work Phone: Sex hormone binding globulin [Moles/volume] in Serum or Plasma [facility] Testosterone Free [M ass/volume] in Serum or Plasma [facility] Testosterone measurement [facility] Pelvis [facility] Pelvis transvaginal [facility] Immunizations Immunization Date Immunization Notes Care Provider Fa cility 03-05-2021 Covid (Pfizer) [facility] 02-03-2021 Covid (Pfizer) [facility] 08-28-2014 measles, mumps and rubella virus vaccine [facility] 08-19-2013 tetanus toxoid, redu emile diphtheria toxoid, and acellular pertussis vaccine, adsorbed [facility] Payers Date Payer Category Payer Private Health Insurance [id number] 2024 Self-pay [id number] Private Health Insurance [id number] Unknown [id number] Unknown [facility] [id number] Unknown [facility] [id number] Unknown [facility] PACKAGE PLAN [id number] Unknown [id number] Unknown [id number] Unknown [id number] Unknown [id number] Unknown [id number] Social History Date Type Detail Facility Start: 04-15-2021 End: 08-21-2023 Tobacco smoking status [facility] Unknown if ever smoked [facility] Start: 10-15-2019 With Family [facility] Start: 1990 Sex Assigned At Female [facility] Start: 08-04-2024 End: 10-22-2024 Tobacco smoking status TNIS Smokes tobacco daily (finding) [facility] Start: 08-07-2024 Sex Female (finding) [facility] Procedure Code Equipment Code Equipment Origin al Text Equipment Identifier Dates Vaginal hysterectomy SEALANT,KRISH SEAL HEMOSTATIC 5ML FDA Start: 10-02-2023 Vaginal hysterectomy SEALANT,KRISH SEAL HEMOSTATIC 5ML FDA Start: 10-02-2023 Evaluation note 08-04-2024 Note Date & Type Note Facility 08-04-2024 Evaluation note Diagnosis Onset Date Resolution Vaginal burning acute July 1:04pm [facility] Work Phone: Evaluation note 08-04-2024 Note Date & Type Note Facility 08-04-2024 Evaluation note Diagnosis Onset Date Resolution Vaginal burning acute July 1:04pm Encounter for routine gynecological examination noneactive October 22, 2024 8:16am [facility] Work Phone: Clinical Note 08-21-2023 Note Date & Type Note Facility 08-21-2023 Note [facility] Pap Smear Specimen Adequacy August 21, 2023 11:59pm Comment . Satisfactory for evaluation. Endocervical and/or squamous metaplasticcells (endocervical component) are present. Comment on above: Satisfactory for pritesh luation. Endocervical and/or squamous metaplasticcells (endocervical component) are present. Clinical Note 08-21-2023 Note Date & Type Note Facility 08-21-2023 Note [facility] Pap Smear Specimen Adequacy August 21, 2023 11:59pm Comment . Satisfactory for evaluation. Endocervical and/or squamous metaplasticcells (endocervical component) are present. Comment on above: Satisfactory for pritesh luation. Endocervical and/or squamous metaplasticcells (endocervical component) are present. Evaluation note Note Date & Type Note Facility Evaluation note No assessment information availa ble [facility] Work Phone: Evaluation note Note Date & Type Note Facility Evaluation note Diagnosis Onset Date PCOS (polycystic ovarian syndrome) noneactive Abnormal uterine bleeding no neactive [facility] Work Phone: Hospital Discharge instructions Note Date & Type Note Facility Hospital Discharge instructions Ambulatory OrdersPhysical Therapy Referral Location: None Selected [facility] Work Phone: Reason for referral (narrative) Note Date & Type Note Facility Reason for referral (narrative) No reason for referral information available [facility] Work Phone: Summary Purpose Family History No Family History Records Found Relationship Condition Age at Onset Recorded Date/T micah father Diabetes mellitus Unknown Traumatic brain injury Unknown mother Diabetes mellitus Unknown Hypothyroidism Unknown Relationship Condition Age at Onset Recorded Date/T micah father Diabetes mellitus Unknown Traumatic brain injury Unknown mother Diabetes mellitus Unknown Hypothyroidism Unknown Malignant neoplasm of ovary Unknown sister Vasovagal syncope Unknown aunt Malignant neoplasm of breast Unknown grandmother Malignant neoplasm of ovary Unknown Advance Directives No Advanced Directives Records Found Advance Directive Response Recorded Date/ Time Living Will No April 14, 7:41pm Power of Facing Slitter No April 14, 2021 7:41pm Advance Directive Response Recorded Date/ Time Living Will No April 14, 021 6:41pm Power of Facing Slitter No April 14, 2021 6:41pm Advance Directive Response Recorded Date/ Time Living Will No August 08, 2023 12:33pm Power of Facing Slitter No August 07 12:33pm Chief Complaint and Reason for Visit Chief Complaint Polycystic ovarian s yndrome Chief Complaint AUB/PCOS PAP Reason for Visit PCOS (polycystic ova geneva syndrome) Abnormal uterine bleeding Chief Complaint AUB/PCOS PAP ABNORMAL UTERINE AND VAGINAL BLEEDING Reason for Visit PCOS (polycystic ova geneva syndrome) Abnormal uterine bleeding Chief Complaint Admit Date vulvar burning, redness August 04, 2024 1:04pm Reason for Visit Admit Date Vaginal burning August 04, 2024 1:04 pm Chief Complaint Admit Date vulvar burning, redness August 04, 2024 1:04pm 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) October 22, 2024 8:16 am Reason for Visit Admit Date Vaginal burning August 04, 2024 1:04 pm Encounter for routine gynecological exam ination October 22, 2024 8:16am Additional Source Comments INFORMATION SOURCE (unrecogn ized section and content) DATE CREATED AUTHOR 11/18/2019 [facility] [place] DATE CREATED AUTHOR AUTHOR'S ORGANIZ ATION 11/19/2024 [facility] Goals (unrecognized section and content) Goals may be documented in a n alternate sectionGoals may be documented in an alternate sectionGoals may be documented in an alternate sectionGoals may be documented in an alternate sectionGoals may be documented in an alternate sectionGoals may be documented in an alternate sectionGoals may be documented in an alternate sectionGoals may be documented in an alternate section Care Teams (unrecognized sec tion and content) Team Status: Active Member Role Status Dates WOODY Johansen Primary Care Provider Active Team Status: Inactive Member Role Status Dates WOODY Johansen Primary Care Provider Active Dr. Thomas Tolbert MD Attending Provider Active Team Status: Inactive Member Role Status Dates WOODY Johansen Primary Care Provider Active Dr. Chel Mack MD Attending Provider, Refer ring Provider Active Team Status: Active Member Role Status Dates Dr. Kenny Butler MD Primary Care Provider Active Team Status: Inactive Member Role Status Dates Dr. Chel Mack MD Attending Provider, Refer ring Provider Active Dr. Kenny Butler MD Primary Care Provider Active Team Status: Inactive Member Role Status Dates Dr. Kenny Butler MD Primary Care Provider, Referring Provider Active WOODY Johansen Attending Provider Active Team Status: Inactive Member Role Status Dates Dr. Kenny Butler MD Primary Care Provider Active WOODY Johansen Attending Provider, Referring Pr ovider Active Team Status: Inactive Member Role Status Dates Dr. Kenny Butler MD Primary Care Provider Active Start: June 04, 2024 End: June 04, 2024 Dr. Kenny Butler MD Attending Provider Active Start: June 04, 2024 End: June 04, 2024 Dr. Kenny Butler MD Referring Provider Active Start: June 04, 2024 End: June 04, 2024 Team Status: Inactive Member Role Status Dates Dr. Kenny Butler MD Primary Care Provider Active Start: August 04, 2024 End: August 04, 2024 Dr. Kenny Butler MD Referring Provider Active Start: August 04, 2024 End: August 04, 2024 Katie Balderas NP SHREDDED FILLER CUTTER OPERATOR-C Attending Provider Active Start: August 04, 2024 End: August 04, 2024 Team Status: Inactive Member Role Status Dates Dr. Kenny Butler MD Primary Care Provider Active Start: August 04, 2024 End: August 04, 2024 Katie Balderas NP, SHREDDED FILLER CUTTER OPERATOR-C Attending Provider Active Start: August 04, 2024 End: August 04, 2024 Team Status: Inactive Member Role Status Dates Dr. Kenny Butler MD Primary Care Provider Active Start: October 22, 2024 End: October 22, 2024 Dr. Kenny Butler MD Referring Provider Active Start: October 22, 2024 End: October 22, 2024 WOODY Johansen Attending Provider Active Start: October 22, 2024 End: October 22, 2024 FOR RECORDS PERTAINING TO PATIENTS WHO ARE OR HAVE BEEN ENROLLED IN A CHEMICAL DEPENDENCY/SUBSTANCEABUSE PROGRAM, SOME INFORMATION MAY BE OMITTED. This clinical summary was aggregated from multiple sources. Caution should be exercised in using it in the provision of clinical care. This summary normalizes information from multiple sources, and as a consequence, information in this document may materially change the coding, format and clinical context of patient data. In addition, data may be omitted in some cases. CLINICAL DECISIONS SHOULD BE BASED ON THE PRIMARY CLINICAL RECORDS. [employer] [facility]. provides no warranty or guarantee of the accuracy or completeness of information in this document.
== END | disposition home or self-care (01) ==
LOC: MFPLAB 11:26
PROVIDERS: PCP Family Medicine; Referring Provider Family Medicine; Visit Provider Family Medicine
DX: R00.0 Tachycardia, unspecified (principal)
CPT/HCPCS: 36415; 80048

== ENCOUNTER → 2025-02-19 | Outpatient (CLI) | payer OTHER, SELFPAY ==
[2025-02-19 11:02] LABS: Cholesterol 195 mg/dL (<=200); Low Density Lipoprotein Calc. 117 mg/dL; Triglycerides 145 mg/dL; Very Low Density Lipoprotein 29 mg/dL (5-40); cholesterol:hdl ratio screen 3.71
[2025-02-19 11:18] LABS: Anion Gap 13 (5-15); BUN 8 mg/dL (4-19); BUN/Creat Ratio 10.0 RATIO (10-20); Calcium,Total 9.6 mg/dL (7.6-11.0); Carbon Dioxide 22.8 mmol/L (21.0-32.0); Chloride 102 mmol/L (98-108); Glucose 111 mg/dL (70-99); Potassium 3.8 mmol/L (3.3-5.1)
== END | disposition home or self-care (01) ==
LOC: MFPLAB 09:06
PROVIDERS: PCP Family Medicine; Visit Provider Family Medicine
DX: Z00.00 Encounter for general adult medical examination without abnormal findings (principal)
CPT/HCPCS: 36415; 80048; 80061